=== PATIENT | female | born 1940 | race Caucasian/White ===

== ENCOUNTER → 2022-04-13 | Outpatient (CLI) | payer MEDICARE, SELFPAY ==
--- NOTE | 2022-04-13 10:19 | BI_ITS ---
MAMMOGRAPHY - BILATERAL SCREENING REASON FOR EXAM: Female, 81 years old. Routine annual screening examination. PERTINENT HISTORY: Non-contributory. TECHNIQUE: Digital bilateral breast bianca (3D mammographic acquisition) in the CC and MLO projections. 2-D mediolateral oblique (MLO) and craniocaudad (CC) views of both breasts were obtained. CAD: Full Field Digital Mammography with Computer Added Detection was performed. COMPARISON: None. Baseline examination. FINDINGS: Breast Composition: There are scattered areas of fibroglandular density. There are no dominant masses or suspicious calcifications. Small benign-appearing bilateral axillary lymph. No other significant abnormalities are identified. BI/SCRN MAMM (CAD)W/BIANCA BILAT IMPRESSION: Negative screening mammogram. Yearly followup mammogram recommended. (A) ASSESSMENT CATEGORY: BIRADS Category 2: Benign. A letter regarding these results will be sent to the patient by the facility within 30 days. Approximately 10% of breast cancers are not detected by mammography. A normal mammogram should not delay biopsy of a clinically suspicious abnormality. [id number] Electronically Signed: Ayan Jimenez MD at 13:27 EST ,
--- NOTE | 2022-04-13 10:21 | BD_ITS ---
STUDY: DUAL ENERGY X-RAY ABSORPTIOMETRY / DXA REASON FOR EXAM: Female, 81 years old. [id number] TECHNIQUE: Bone Mineral Density (BMD) measurements of lumbar spine and bilateral hips were obtained. COMPARISON: None. FINDINGS: Lumbar Spine (L1-L4): g/cm2 (0.837) / T-score (-2.2) / Z-score (0.7) Findings are suggestive of osteopenia with a high fracture risk. Left Femur Total: g/cm2 (0.802) / T-score (-1.1) / Z-score (1.1) Left Femoral Neck: g/cm2 (0.671) / T-score (-1.6) / Z-score (0.8) Right Femur Total: g/cm2 (0.734) / T-score (-1.7) / Z-score (0.5) Right Femoral Neck: g/cm2 (0.648) / T-score (-1.8) / Z-score (0.6) BD/Dexa Bone Density Study IMPRESSION: The patient is considered osteopenic as outlined below according to World Bishop Organization (WHO) criteria with a high fracture risk. Reference Information: The T-score is the number of standard deviations above or below the standard which is normal for young adults at their peak bone mineral density. The World Health Organization (WHO) interprets the T-scores as follows: Above -1 Normal bone density Between -1 and -2.5 Osteopenia Equal to / or below -2.5 Osteoporosis As a practical clinical guideline, osteopenia may be graded as follows: Mild -1 through -1.5 Moderate -1.6 through -2.0 Severe -2.1 through -2.4 The Z-score is the number of standard deviations above or below age-matched controls. A Z-score of less than -1.5 would be considered abnormal. References: 1. NIH Osteoporosis and Related Bone Diseases www osteo.org 2. International Society for Clinical Densitometry www iscd.org 3. National Osteoporosis Foundation www nof.org Electronically Signed: Ayan Jimenez MD at 12:42 EST ,
== END | disposition home or self-care (01) ==
LOC: OPBD 10:16
PROVIDERS: PCP Internal Medicine; Visit Provider Internal Medicine
DX: Z13.820 Encounter for screening for osteoporosis (principal); Z78.0 Asymptomatic menopausal state; Z12.31 Encounter for screening mammogram for malignant neoplasm of breast
CPT/HCPCS: 77063; 77067; 77080

== ENCOUNTER → 2023-04-23 | Outpatient (CLI) | payer MEDICARE, SELFPAY ==
--- NOTE | 2023-04-23 08:05 | BI_ITS ---
MAMMOGRAPHY - BILATERAL SCREENING REASON FOR EXAM: Female, 82 years old. Routine annual screening examination. PERTINENT HISTORY: Non-contributory. TECHNIQUE: Digital bilateral breast bianca (3D mammographic acquisition) in the CC and MLO projections. 2-D mediolateral oblique (MLO) and craniocaudad (CC) views of both breasts were obtained. CAD: Full Field Digital Mammography with Computer Added Detection was performed. COMPARISON: Comparison is made with prior study dated April 13, 2022. FINDINGS: Breast Composition: There are scattered areas of fibroglandular density. There are no dominant masses or suspicious calcifications. Stable small benign-appearing bilateral axillary lymph nodes. No other significant abnormalities are identified. There has been no significant change since the prior study. BI/SCRN MAMM (CAD)W/BIANCA BILAT IMPRESSION: Stable bilateral screening mammogram. Yearly follow-up mammogram recommended. (A) ASSESSMENT CATEGORY: BIRADS Category 2: Benign. A letter regarding these results will be sent to the patient by the facility within 30 days. Approximately 10% of breast cancers are not detected by mammography. A normal mammogram should not delay biopsy of a clinically suspicious abnormality. [id number] Electronically Signed: Ayan Jimenez MD at 8:56 EST ,
== END | disposition home or self-care (01) ==
LOC: OPBI 08:05
PROVIDERS: PCP Internal Medicine; Referring Provider Internal Medicine; Visit Provider Internal Medicine
DX: Z12.31 Encounter for screening mammogram for malignant neoplasm of breast (principal)
CPT/HCPCS: 77063; 77067

== ENCOUNTER 2023-10-22 16:14 | Inpatient (IN) | payer MEDICARE, SELFPAY ==
[2023-10-22 16:16] VITALS: BP 180/97; PULSE 104; RESP 20; TEMP 37.2; O2SAT 92
--- NOTE | 2023-10-22 16:19 | EKG12_ITS ---
Test Reason : GENERAL Blood Pressure : / mmHG Vent. Rate : 096 BPM Atrial Rate : 096 BPM P-R Int : 154 ms QRS Dur : 080 ms QT Int : 338 ms P-R-T Axes : 029 -14 031 degrees QTc Int : 427 ms Normal sinus rhythm Inferior infarct , age undetermined Abnormal ECG Confirmed by MALKA AREVALO, YULIA ([id number]), film and video editor KENDALL COFFEY ([id number]) on 10/26/2023 9:58:36 AM Referred By: Confirmed By:SARANYA ACE MD
--- NOTE | 2023-10-22 16:22 | ED.VIS.LOWEX ---
HPI History of Present Illness Chief Complaint: Lower Extremity Injury Narrative Narrative: 82-year-old female presenting after mechanical fall. She states she lost her footing and fell injuring her left hip. He is unable to ambulate secondary to pain. Patient was given 50 mcg of fentanyl and Zofran in the route via EMS. Patient denies hitting her head or loss of consciousness. She states he was in her usual health prior to the fall. [facility] Medical History Contact with and (suspected) exposure to other viral communicable diseases Home Medications ?Medication ?Instructions ?Recorded ?Last Taken ?Type amlodipine 5 mg tablet 5 mg PO DAILY BLOOD PRESSURE 06/29/22 Unknown History benazepril 10 mg tablet 10 mg PO DAILY BLOOD PRESSURE 06/29/22 Unknown History cholecalciferol (vitamin D3) 50 50 mcg PO DAILY SUPPLEMENT 06/29/22 Unknown History mcg (2,000 unit) capsule cyanocobalamin (vitamin B-12) 2,500 mcg PO DAILY SUPPLEMENT 06/29/22 Unknown History 2,500 mcg tablet ezetimibe 10 mg tablet 10 mg PO DAILY CHOLESTEROL 06/29/22 Unknown History meclizine 25 mg tablet 25 mg PO Q8H PRN DIZZINESS 06/29/22 Unknown History Allergy/AdvReac Type Severity Reaction Status Date / Time No Known Allergies Allergy Verified 10/22/23 16:16 Social History Smoking Status: Never smoker alcohol intake: never ROS ROS ED Constitutional Constitutional ED: Denies chills, fever(s) or sweats Eyes Eyes: Denies blurry vision or change in vision ENT ENT ED: Denies ear pain or sore throat Cardiovascular Cardiovascular: Denies chest pain, palpitations or racing heartbeat Respiratory/Chest Respiratory/Chest: Denies cough, dyspnea or sputum Gastrointestinal Gastrointestinal: Denies abdominal pain, constipation, diarrhea, nausea or vomiting Genitourinary Genitourinary ED: Denies dysuria, hematuria or urinary frequency Musculoskeletal Musculoskeletal: Reports other Details: Left hip pain ; Denies arthralgias, myalgias or neck pain Integumentary Denies abscess, Abrasions or rash Neurologic Neurologic: Denies headache(s), paresthesias or weakness Psychiatric Psychiatric: Denies anxiety, depression, suicidal ideation or suicidal thoughts Endocrine Endocrinology: Denies polydipsia or polyuria EXAM Physical Exam Const Vital Signs: 10/22/23 16:16 Temperature 99 F Temperature Source Temporal Pulse Rate 104 H Respiratory Rate 20 H Blood Pressure 180/97 H Blood Pressure Mean 124 Pulse Ox 92 Oxygen Delivery Method Room Air Positive well nourished General Appearance ED: NAD HEENT Reports moist mucous membranes normocephalic and atraumatic Chest Wall inspection of chest normal Resp normal respiratory effort, no retractions and clear to auscultation bilaterally Auscultation: Negative for rales, rhonchi or wheezes Cardio regular rate and regular rhythm GI non-tender Extremity Extremity Narrative: Positive logroll of the left hip. Leg is not shortened. Unable to flex and extend the leg secondary to pain. Neuro oriented x3 and CN's II-XII intact bilaterally Sensorium / Orientation: alert Motor Exam: strength 5/5 throughout Psych mental status grossly normal MDM MDM MDM Narrative Medical decision making narrative: Patient presenting after mechanical fall. She injured her left hip. Differential includes hip fracture, femur fracture, hip hip contusion. X-ray of the left hip and femur will be obtained. IV line was established. CBC to assess white blood cell count, hemoglobin and platelets. BMP to assess renal function, protein glucose. CBC shows normal white blood, 6. Hemoglobin 14.6. Platelets are normal at 248. Creatinine slightly elevated 1.07 without known baseline. Glucose 153 without anion gap. Chest x-ray interpreted by myself shows no acute cardiopulmonary process. Radiologist services and agrees. EKG was obtained and my interpretation is a normal sinus rhythm with a ventricular rate of 96 bpm without signs change. Of the pelvis which shows acute left femoral neck fracture. Patient counseled on findings. Discussed with Dr. Garcia who will operate tomorrow. Admitted to the hospitalist. Impression: 1. Mechanical fall 2. Left hip fracture Lab Data Attestation: I reviewed the patient's lab results. Labs: Laboratory Results - last 24 hr 10/22/23 16:40 WBC 10.6 RBC 4.91 Hgb 14.6 Hct 44.0 MCV 89.6 MCH 29.7 MCHC 33.2 RDW Std Deviation 40.0 RDW Coeff of Ralette 12.2 Plt Count 248 MPV 9.0 Immature Gran % (Auto) 0.900 Neut % (Auto) 75.6 H Lymph % (Auto) 16.0 L [place] % (Auto) 5.8 Eos % (Auto) 1.2 Baso % (Auto) 0.5 Absolute Neuts (auto) 8.0 H Absolute Lymphs (auto) 1.70 Nucleated RBC % 0 Sodium 139 Potassium 3.5 Chloride 107 Carbon Dioxide 29.0 Anion Gap 3 L BUN 16 Creatinine 1.07 H Est GFR (MDRD) Af Amer 63 Est GFR (MDRD) Non-Af 52 L BUN/Creatinine Ratio 15.0 Glucose 153 H Calcium 9.6 Radiography Diagnostic Testing: Clinical Impression(s) from Imaging Studies Chest X-Ray 10/22/23 16:30 IMPRESSION: No acute cardiopulmonary abnormality. No interval change. Electronically Signed: Raul Méndez MD at 16:56 EDT , Femur X-Ray 10/22/23 16:30 IMPRESSION: Acute left femoral neck fracture. Electronically Signed: Raul Méndez MD at 16:54 EDT , Pelvis X-Ray 10/22/23 16:30 IMPRESSION: Left femoral neck fracture. Electronically Signed: Raul Méndez MD at 16:55 EDT , Discharge Plan Triage Chief Complaint: Lower Extremity Injury Other Complaint: Fall ED Provider: Elgin Domingo Dx/Rx/DC Orders Prescriptions: No Action meclizine 25 mg tablet 25 mg PO Q8H PRN (Reason: DIZZINESS ) amlodipine 5 mg tablet 5 mg PO DAILY benazepril 10 mg tablet 10 mg PO DAILY ezetimibe 10 mg tablet 10 mg PO DAILY cholecalciferol (vitamin D3) 50 mcg (2,000 unit) capsule 50 mcg PO DAILY cyanocobalamin (vitamin B-12) 2,500 mcg tablet 2,500 mcg PO DAILY Primary Care Provider: Aneta Alcantara Referrals: Aneta Alcantara DO [Primary Care Provider] - Print Language: Citizen Of [place]
--- NOTE | 2023-10-22 16:30 | RAD_ITS ---
EXAM: XR CHEST, 1 VIEW CLINICAL INDICATION: preop TECHNIQUE: Frontal view of the chest. COMPARISON: XR Chest dated 04/15/2006 FINDINGS: LUNGS AND PLEURAL SPACES: Normal. No consolidation or edema. No pneumothorax. No effusion. HEART: Normal heart size. MEDIASTINUM: No mediastinal or hilar mass. BONES/JOINTS: No acute abnormality. RAD/Chest 1 View (Portable) IMPRESSION: No acute cardiopulmonary abnormality. No interval change. Electronically Signed: Raul Méndez MD at 16:56 EDT ,
--- NOTE | 2023-10-22 16:30 | RAD_ITS ---
EXAM: XR PELVIS, 1 OR 2 VIEWS CLINICAL INDICATION: left hip pain TECHNIQUE: Frontal view of the pelvis. COMPARISON: No relevant prior studies available. FINDINGS: BONES/JOINTS: There appears to be a fracture involving the base of the left femoral neck not well seen on this single view of the pelvis. Mild narrowing of the left hip joint space. Sclerotic changes of the symphysis pubis consistent with benign osteitis. SOFT TISSUES: Normal. No soft tissue swelling or gas. RAD/Pelvis 1 or 2 Views IMPRESSION: Left femoral neck fracture. Electronically Signed: Raul Méndez MD at 16:55 EDT ,
--- NOTE | 2023-10-22 16:30 | RAD_ITS ---
EXAM: XR LEFT FEMUR, 2 VIEWS CLINICAL INDICATION: fall TECHNIQUE: Frontal and lateral views of the left femur. COMPARISON: No relevant prior studies available. FINDINGS: BONES/JOINTS: Acute fracture involves the base of the left femoral neck. Femoral shaft appears rotated externally. Femoral shaft is intact. No subluxation. SOFT TISSUES: Normal. No soft tissue swelling or gas. No radiopaque foreign body. RAD/Femur Min 2 Views IMPRESSION: Acute left femoral neck fracture. Electronically Signed: Raul Méndez MD at 16:54 EDT ,
[2023-10-22 16:54] LABS: Basophil# 0.05 X10^3/uL; Basophil% 0.5 % (0-1); Eosinophil# 0.13 X10^3/uL; Eosinophils% 1.2 % (0-5); Hemoglobin 14.6 g/dL (12.0-15.0); Mean Corp Hgb Conc 33.2 g/dL (32-36); Mean Corpuscular Hgb 29.7 pg (27.0-32.0); Mean Corpuscular Volume 89.6 fL (81-99); Monocyte# 0.61 X10^3/uL; Monocyte% 5.8 % (0-10); NRBC Flagged by Analyzer 0 % (0-5); Neutrophil # 8.01 X10^3/uL (2.7-7.7); Neutrophil % 75.6 % (47-70); Platelet Count 248 K/mm3 (150-450); RBC Distribution Width CV 12.2 % (11.6-14.6); Red Blood Count 4.91 M/mm3 (4.2-5.4); White Blood Count 10.6 K/mm3 (4.4-11.0)
[2023-10-22 17:00] LABS: Anion Gap 3 (5-15); BUN 16 mg/dL (7-18); Calcium,Total 9.6 mg/dL (8.5-10.1); Chloride 107 mmol/L (98-107); Creatinine, Serum 1.07 mg/dL (0.55-1.02); EST Glomerular Filtration Rate 52 mL/min (>60); Est Glom Filt Rate - Afr Amer 63 mL/min (>60); Glucose 153 mg/dL (74-106); Potassium 3.5 mmol/L (3.5-5.1); Sodium Level 139 mmol/L (136-145)
--- NOTE | 2023-10-22 17:26 | HP.PCM.HOS_ITS ---
HPI - General General Date of Admission: 10/22/23 Date of Service: 10/22/23 Chief Complaint: Left hip pain HPI Narrative LENA SAEZ, is a 82-year-old female history of hypertension who presented to [facility] ED 10/22/2023 after mechanical fall in which she lost her footing and fell onto her left hip. Patient found to have left femoral neck fracture, Ortho contacted and advised hospital admission and they will see her in consultation. Hospitalist contacted for admission. Patient evaluated at bedside she reports presently being in pain but otherwise no acute complaints. She walked about 4 miles this morning which is her baseline and then later in the day was walking and just fell, denies that there is any weakness but does not think she tripped over anything, no lightheadedness or loss of consciousness, she is unsure how she fell. Denies any other recent problems or complaints. [facility] Medical History Contact with and (suspected) exposure to other viral communicable diseases Home Medications ?Medication ?Instructions ?Recorded ?Last Taken ?Type amlodipine 5 mg tablet 5 mg PO DAILY BLOOD PRESSURE 06/29/22 10/21/23 History benazepril 10 mg tablet 10 mg PO DAILY BLOOD PRESSURE 06/29/22 10/21/23 History cholecalciferol (vitamin D3) 50 50 mcg PO DAILY SUPPLEMENT 06/29/22 10/21/23 History mcg (2,000 unit) capsule cyanocobalamin (vitamin B-12) 2,500 mcg PO DAILY SUPPLEMENT 06/29/22 10/21/23 History 2,500 mcg tablet ezetimibe 10 mg tablet 10 mg PO DAILY CHOLESTEROL 06/29/22 10/21/23 History meclizine 25 mg tablet 25 mg PO Q8H PRN DIZZINESS 06/29/22 Unknown History Allergy/AdvReac Type Severity Reaction Status Date / Time No Known Allergies Allergy Verified 10/22/23 16:16 Social History Smoking Status: Never smoker alcohol intake: never ROS ROS Narrative General: Denies fever/chills HENT: Denies headache, denies stuffy nose, denies sore throat EYES: Denies changes in vision Resp: Denies cough, denies shortness of breath Cardiac: Denies chest pain GI: Denies abdominal pain, denies changes in bowel, denies nausea/vomiting : Denies changes in urination Extremity: Denies swelling MSK: Denies weakness, left hip pain Neuro: Denies any numbness/tingling Heme: Denies any bleeding or bruising Skin: Denies rashes Psychiatric: No complaints voiced Vital Signs Vital Signs Vital Signs: 10/22/23 16:16 Temperature 99 F Temperature Source Temporal Pulse Rate 104 H Respiratory Rate 20 H Blood Pressure 180/97 H Blood Pressure Mean 124 Pulse Ox 92 Oxygen Delivery Method Room Air Physical Exam Narrative General: Alert, oriented, no apparent distress HEENT: Atraumatic, normocephalic Eyes: Anicteric, normal conjunctiva, extraocular movements grossly intact Neck: Supple Respiratory: Clear to auscultation bilaterally, normal respiratory effort Cardiovascular: Regular rate and rhythm GI: Soft, nontender, nondistended Extremities: No edema Musculoskeletal: Keeping left leg still otherwise moving all extremities Neuro: No overt focal neurological deficits Skin: No rashes appreciated Psych: Cooperative Results Lab / Micro Data 10/22/23 16:40 10/22/23 16:40 Labs: Laboratory Results - last 24 hr 10/22/23 16:40: WBC 10.6, RBC 4.91, Hgb 14.6, Hct 44.0, MCV 89.6, MCH 29.7, MCHC 33.2, RDW Std Deviation 40.0, RDW Coeff of Arlette 12.2, Plt Count 248, MPV 9.0, Immature Gran % (Auto) 0.900, Neut % (Auto) 75.6 H, Lymph % (Auto) 16.0 L, [place] % (Auto) 5.8, Eos % (Auto) 1.2, Baso % (Auto) 0.5, Absolute Neuts (auto) 8.0 H, Absolute Lymphs (auto) 1.70, Nucleated RBC % 0, Sodium 139, Potassium 3.5, Chloride 107, Carbon Dioxide 29.0, Anion Gap 3 L, BUN 16, Creatinine 1.07 H, Est GFR (MDRD) Af Amer 63, Est GFR (MDRD) Non-Af 52 L, BUN/Creatinine Ratio 15.0, G lucose 153 H, Calcium 9.6 Imaging Radiology Impression Chest X-Ray 07/29/24 16:30 IMPRESSION: No acute cardiopulmonary abnormality. No interval change. Electronically Signed: Raul Méndez MD at 16:56 EDT , Femur X-Ray 10/22/23 16:30 IMPRESSION: Acute left femoral neck fracture. Electronically Signed: Raul Méndez MD at 16:54 EDT , Pelvis X-Ray 10/22/23 16:30 IMPRESSION: Left femoral neck fracture. Electronically Signed: Raul Méndez MD at 16:55 EDT , Assessment & Plan Assessment/Plan (1) Closed left hip fracture: (2) HTN (hypertension): PLAN: Plan #Left femoral neck fracture -Seen on hip xray -admit to med surg -ortho c/s -NPO at midnight -Pain control -PT/OT #SUSAN vs CKD -Cr 1.07 w/ no baseline -Avoid nephrotoxic agents -Repeat in AM #HTN -Significantly hypertensive at 180/97 -Possibly partially d/t pain -Continue amlodipine, given unclear if patient has SUSAN holding benazepril but can add back if creatinine stable and patient remains hypertensive despite pain being treated -Hydralazine prn -Pain control #DVT ppx: SCDs Danette Edmonds MD Charges/Coding Visit Charges Inpatient E&M: 80181 Init Hosp L1
[2023-10-22 17:29] VITALS: BP 150/93; PULSE 101; RESP 18; TEMP 36.6; O2SAT 96
[2023-10-22 18:38] VITALS: BP 168/91; PULSE 98; RESP 18; TEMP 36.6; O2SAT 93
[2023-10-22] MEDS: Morphine 2 MG/ML Syringe IV (18:57)
[2023-10-22] MEDS: Acetaminophen 500 MG Tablet 1000 MG PO (18:57)
[2023-10-22] MEDS: Ondansetron 4 MG/2 ML Vial IV (18:57)
[2023-10-22] MEDS: 0.9% Saline Lock 10 ML Syringe IV (18:58)
[2023-10-22 20:22] VITALS: BP 158/76; PULSE 92; RESP 18; TEMP 37.3; O2SAT 95
[2023-10-22 20:32] VITALS: BMI 27.0
[2023-10-22] MEDS: MELATONIN 3 MG TABLET PO (21:53)
[2023-10-22] MEDS: oxyCODONE 5 MG Tablet PO (21:53)
[2023-10-22] MEDS: amLODIPine 5 MG Tablet PO (21:54)
[2023-10-22] MEDS: Ezetimibe 10 MG Tablet PO (21:54)
[2023-10-22 23:50] VITALS: O2SAT 86
[2023-10-22 23:53] VITALS: BP 151/83; PULSE 79; RESP 18; TEMP 36.9; O2SAT 92
[2023-10-23] VITALS (16 sets, daily range): BP systolic 113–165; BP diastolic 44–92; PULSE 78–92; RESP 16–18; TEMP 36.3–37; O2SAT 84–96
[2023-10-23 06:43] LABS: Absolute Lymphocyte Count 1.37 X10^3/uL (0.83-4.51); Absolute Neutrophil Count 10.4 X10^3/uL (2.0-7.7); Basophil# 0.05 X10^3/uL; Basophil% 0.4 % (0-1); Eosinophils% 1.6 % (0-5); Hematocrit 43.2 % (37-47); Hemoglobin 14.4 g/dL (12.0-15.0); Lymphocyte # 1.37 X10^3/ul (0.83-4.51); Lymphocyte % 10.8 % (19-41); Mean Corp Hgb Conc 33.3 g/dL (32-36); Mean Corpuscular Hgb 29.3 pg (27.0-32.0); Mean Corpuscular Volume 87.8 fL (81-99); Mean Platelet Vol. 8.9 fl (6.2-12.0); Monocyte# 0.65 X10^3/uL; Monocyte% 5.1 % (0-10); NRBC Flagged by Analyzer 0 % (0-5); Neutrophil # 10.35 X10^3/uL (2.7-7.7); Neutrophil % 81.7 % (47-70); Platelet Count 230 K/mm3 (150-450); RBC Distribution Width CV 12.2 % (11.6-14.6); RBC Distribution Width SD 39.3 fl (35.1-43.9); Red Blood Count 4.92 M/mm3 (4.2-5.4); White Blood Count 12.7 K/mm3 (4.4-11.0)
[2023-10-23] MEDS: oxyCODONE 5 MG Tablet PO (06:45)
[2023-10-23] MEDS: Acetaminophen 500 MG Tablet 1000 MG PO ×2 (06:46→20:58)
[2023-10-23] MEDS: 0.9% Saline Lock 10 ML Syringe IV ×4 (06:46→20:53)
[2023-10-23 07:40] LABS: Anion Gap 6 (5-15); BUN 13 mg/dL (7-18); BUN/Creat Ratio 13.5 RATIO (10-20); Calcium,Total 9.5 mg/dL (8.5-10.1); Chloride 103 mmol/L (98-107); Creatinine, Serum 0.96 mg/dL (0.55-1.02); EST Glomerular Filtration Rate 59 mL/min (>60); Est Glom Filt Rate - Afr Amer 71 mL/min (>60); Estimated Creatinine Clearance 40.74 ml/min; Glucose 130 mg/dL (74-106); Potassium 3.8 mmol/L (3.5-5.1); Sodium Level 136 mmol/L (136-145)
--- NOTE | 2023-10-23 09:52 | CASEMGMT ---
JOSIANE CARCAMO Assessment: Face to Face with pt for initial transition planning/care coordination assessment. JOSIANE CARCAMO introduced self and role at [facility], pt voices understanding and consents to assessment. Pt is A&O x4 and answers all questions appropriately at this time. Pt lying in bed in no distress. Pt niece came in room during assessment, pt agreeable to continue with visitor present. Care providers, pharmacy, and demographics verified/updated. Admitting Dx: L femoral neck fx Strata Score: 1 PCP:[place] Specialists:Denies Preferred Pharmacy:[facility] Insurance: [facility] Prescription Benefit: yes LNOK: Roosevelt Bonner, sister in law; Vianney Self, niece Living Arrangements: Pt lives in a single story home with 3 steps to enter with a rail. Pt reports she is I in ADL/IADLs and denies concerns at home. Transportation: Pt drives self and denies concerns with transportation. DME:[facility] HHC/SNF:Pt denies hx Pt states no concerns with going home at time of dc. Pt states she walks 4 miles per day. Pt aware that therapy will evaluate her after surgery and RN DONA will follow up with recommendations. Pt verbalizes understanding. Pt states no further concerns/needs. CM to follow. Advised pt to ask CM if any further question/concerns/needs arise, voices understanding. Pt Goal: Home Plan: TBD pending surgery and therapy evals as well as course of hospitalization. Corrie JOSHUA CM
[2023-10-23] MEDS: Morphine 2 MG/ML Syringe IV (10:20)
--- NOTE | 2023-10-23 10:21 | PN_ITS ---
Subjective Subjective Patient seen and examined. She complained of severe pain in her left hip and says the pain in the hip is ~ 9/10. She sustained the left hip fracture after a mechanical fall. Review of systems is otherwise negative. She is due for surgery today. Objective Data Objective Data Vital Signs: Vital Signs Temp Pulse Resp BP Pulse Ox O2 Del Method O2 Flow Rate 97.9 F 86 16 152/84 H 93 Nasal Cannula 2 10/23/23 09:44 10/23/23 09:44 10/23/23 09:44 10/23/23 09:44 10/23/23 09:44 10/23/23 09:44 10/23/23 09:44 Oxygen Flow Rate (L/min) 2 Oxygen Delivery Method Nasal Cannula Weight: 152 lb 12.485 oz Body Mass Index (BMI) 27.0 Intake & Output: Intake and Output for Last 24 Hours 10/21/23 10/22/23 10/23/23 23:59 23:59 23:59 Intake Total 0 / 0 Output Total 700 / 700 350 / 350 Balance -700 / -700 -350 / -350 Lab / Micro Data 10/23/23 06:19 10/23/23 06:19 Labs: Laboratory Results - last 24 hr 10/22/23 16:40: WBC 10.6, RBC 4.91, Hgb 14.6, Hct 44.0, MCV 89.6, MCH 29.7, MCHC 33.2, RDW Std Deviation 40.0, RDW Coeff of Arlette 12.2, Plt Count 248, MPV 9.0, Immature Gran % (Auto) 0.900, Neut % (Auto) 75.6 H, Lymph % (Auto) 16.0 L, [place] % (Auto) 5.8, Eos % (Auto) 1.2, Baso % (Auto) 0.5, Absolute Neuts (auto) 8.0 H, Absolute Lymphs (auto) 1.70, Nucleated RBC % 0, Sodium 139, Potassium 3.5, Chloride 107, Carbon Dioxide 29.0, Anion Gap 3 L, BUN 16, Creatinine 1.07 H, Est GFR (MDRD) Af Amer 63, Est GFR (MDRD) Non-Af 52 L, BUN/Creatinine Ratio 15.0, G lucose 153 H, Calcium 9.6 10/23/23 06:19: WBC 12.7 H, RBC 4.92, Hgb 14.4, Hct 43.2, MCV 87.8, MCH 29.3, MCHC 33.3, RDW Std Deviation 39.3, RDW Coeff of Arlette 12.2, Plt Count 230, MPV 8.9, Immature Gran % (Auto) 0.400, Neut % (Auto) 81.7 H, Lymph % (Auto) 10.8 L, [place] % (Auto) 5.1, Eos % (Auto) 1.6, Baso % (Auto) 0.4, Absolute Neuts (auto) 10.4 H, Absolute Lymphs (auto) 1.37, Nucleated RBC % 0, Sodium 136, Potassium 3.8, Chloride 103, Carbon Dioxide 27.0, Anion Gap 6, BUN 13, Creatinine 0.96, Estim Creat Clear Calc 40.74, Est GFR (MDRD) Af Amer 71, Est GFR (MDRD) Non-Af 59 L, BUN/Creatinine Ratio 13.5, Glucose 130 H, Calcium 9.5, Blood Type A POSITIVE, Antibody Screen NEGATIVE Radiography Diagnostic Testing: Radiology Impression Chest X-Ray 10/22/23 16:30 IMPRESSION: No acute cardiopulmonary abnormality. No interval change. Electronically Signed: Raul Méndez MD at 16:56 EDT , Femur X-Ray 10/22/23 16:30 IMPRESSION: Acute left femoral neck fracture. Electronically Signed: Raul Méndez MD at 16:54 EDT Reading Location ID and State: [facility] / [place] Tel , Service support , Pelvis X-Ray 10/22/23 16:30 IMPRESSION: Left femoral neck fracture. Electronically Signed: Raul Méndez MD at 16:55 EDT , Physical Exam Const alert, oriented x3 and no apparent distress General Appearance: cooperative HEENT normocephalic, head/scalp atraumatic, moist oral mucous membranes and oropharynx normal Eyes PERRL and EOMs intact bilaterally Neck no lymphadenopathy, supple and no JVD Lymph Lymphatic: no lymphedema noted and lymphedema Resp Resp Narrative: mildly diminished breath sounds bibasally, no wheezes or crackles. On room 2L of oxygen. Cardio regular rate, regular rhythm, S1 normal heart sound, S2 normal heart sound and no murmurs GI normal to inspection, nondistended, normoactive bowel sounds, soft to palpation, non-tender and non-distended Extremity Extremity Narrative: left lower extremity shortened and externally rotated. General Extremity: no tenderness to palpation of joints or extremities Skin General Skin Exam: no breakdown Neuro CN's II-XII intact bilaterally, no focal motor deficits, no sensory deficits noted and deep tendon reflexes 2+ bilaterally Motor Exam: strength 5/5 throughout and general weakness Psych thought process normal and cooperative Appearance: appropriate Assessment & Plan Assessment/Plan (1) Closed left hip fracture: PLAN: Plan #Left femoral neck fracture due to mechanical fall * still complains of left hip fracture * sustained a mechanical fall whist wallking. * imaging showed a left femoral neck fracture * orthopedic surgery on board * on PO tylenol, oxycodone and IV morphine prn for pain * for surgery today * fall precautions * PT/OT on board. Fall precautions. * #Elevated Cr: Cr was 1.07 on admission. No known baseline Cr. Hydrated with IVF. Will monitor #Hypertension * BP was elevated on admission * on PO amlodipine and benazepril. Resume benazepril which was held on admission due to elevated Cr. * IV hydralazine prn. * DVT prophylaxis: SCDs, lovenox Charges/Coding Visit Charges Inpatient E&M: 03595 Subs Hosp L2
--- NOTE | 2023-10-23 11:18 | NURSING ---
pt off floor for surgery
[2023-10-23] MEDS: Lactated Ringers 1,000 ML 15 ML IV (11:45)
--- NOTE | 2023-10-23 11:45 | PCM.PRE.AN2 ---
ASA Classification* ASA Classification ASA Classification: 2 Assessment & Plan Anesthesia* Anesthesia Assessment Anesthesia Assessment: Discussed sedation and/or anesthesia options, risks, benefits, and alternatives with patient/parents/legal guardian/POA. Questions invited. The patient/parents/legal guardian/POA seems to understand and agrees to proceed with anesthesia plan. Reviewed the physical assessment, medical history, allergy history and patient home medications list prior to surgery/procedure/anesthetic and documented any changes. Performed airway and anesthesia risk assessments. Anesthesia Type Anesthesia Type: General History Source History Obtained from:: Patient and Chart Anesthesia Focused Assessment* Temperature: 97.9 F Pulse Rate: 86 Blood Pressure: 152/84 Respiratory Rate: 16 Pulse Ox: 93 Oxygen Delivery Method: Nasal Cannula (Nasal cannula 2 L/min) Airway Assessment Mouth opens: 2 cm Mallampati Score: IV Teeth Condition: Dentures (Full upper dentures are out. Lower partial is out.) Neck Range of motion (ROM): Limited ROM (Decreased extension.) Focused Labs Anesthesia Preop lab: CBC WBC 12.7 K/mm3 (4.4-11.0) H 10/23/23 06:19 RBC 4.92 M/mm3 (4.2-5.4) 10/23/23 06:19 Hgb 14.4 g/dL (12.0-15.0) 10/23/23 06:19 Hct 43.2 % (37-47) 10/23/23 06:19 Plt Count 230 K/mm3 (150-450) 10/23/23 06:19 CHEMISTRY Potassium 3.8 mmol/L (3.5-5.1) 10/23/23 06:19 Sodium 136 mmol/L (136-145) 10/23/23 06:19 BUN 13 mg/dL (7-18) 10/23/23 06:19 Creatinine 0.96 mg/dL (0.55-1.02) 10/23/23 06:19 Glucose 130 mg/dL (74-106) H 10/23/23 06:19 COAG Pre-Assessment Diagnosis/Proposed Procedure Planned Operative Procedure(s): Left total hip arthroplasty anterior approach. 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 When Was Last Pacemaker Check QUESTION #4 FULL TEXT: You/Your Family Experience fever (hyperthermia) with Anesthesia Last Oral Intake Last Oral intake: Last Oral Intake NPO since Meds taken in AM with sips of water? Meds patient instructed to take am of surgery Any additional information?: Yes NPO since: 00:00 PONV PONV - watch crystal molder: PONV - watch crystal molder Female HX of Motion Sickness HX of N/V After Surgery Non-Smoker Duration of Surgery greater than 60 minutes Number of Risk Factors PONV Score Height & Weight Height & Weight: Anesthesia: Height & Weight Height 5 ft 3 in 10/22/23 20:32 Weight: 69.3 kg 10/22/23 20:32 Body Mass Index (BMI) 27.0 10/22/23 20:32 Respiratory Assessment Respiratory Assessment - watch crystal molder: Respiratory Tract Infection Hx - watch crystal molder Hx Respiratory Tract Infection No 10/22/23 20:16 STOP Sleep Apnea STOP Sleep Apnea - watch crystal molder: STOP Sleep Apnea - watch crystal molder Hx Hypertension Yes 10/22/23 18:30 Hx Sleep Apnea No 10/22/23 18:30 CPAP BIPAP Do you snore loudly (louder No 10/22/23 18:30 than talking or can be heard Do you often feel tired/ No 10/22/23 18:30 fatigued/ sleepy during daytime? Has anyone observed you stop No 10/22/23 18:30 breathing during sleep? STOP Results Negative 10/22/23 18:30 QUESTION #5 FULL TEXT : Do you snore loudly (louder than talking or can be heard through closed doors)? 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 Specify any problems Hx of Preganancy in last 3 N/A 10/22/23 18:30 Months Nurse Filling Out Transfusion [email or web address] 10/22/23 18:30 & Questions: Date: 10/22/23 10/22/23 18:30 Time: 20:30 10/22/23 18:30 Patient unable to answer at this time (ie. confused, unrespo /Reproduction History /Reproductive History - watch crystal molder: /Reproductive Hx- watch crystal molder Hx Now No 10/22/23 20:16 Gestational Age (in weeks): EDC: Hx Hx Para Hx Section SAB No 10/22/23 20:16 Active Medications Active Medications: Current Medications Generic Name Dose Route Start Last Admin Trade Name Freq PRN Reason Stop Dose Admin Acetaminophen 1,000 mg 10/22/23 18:06 10/23/23 06:46 Acetaminophen 500 Mg Tablet PO 1,000 mg Q8 FABIO Administration Albuterol Sulfate 2.5 mg 10/22/23 18:06 Albuterol 2.5 Mg/3 Ml Vial.Neb. INHALATION Q2H PRN PRN SOB &/OR WHEEZING Amlodipine Besylate 5 mg 10/22/23 22:00 10/22/23 21:54 Amlodipine 5 Mg Tablet PO 5 mg QHS FABIO Administration Protocol Ezetimibe 10 mg 10/22/23 22:00 10/22/23 21:54 Ezetimibe 10 Mg Tablet PO 10 mg QHS FABIO Administration Hydralazine HCl 5 mg 10/22/23 18:06 Hydralazine 20 Mg/Ml Vial IV Q6H PRN PRN sbp >175 Protocol Lactated Ringer's 1,000 mls @ 15 mls/hr 10/23/23 11:45 IV .Q48H FABIO Melatonin 3 mg 10/22/23 18:06 10/22/23 21:53 Melatonin 3 Mg Tablet PO 3 mg QHS PRN PRN Administration INSOMNIA Morphine Sulfate 2 mg 10/22/23 18:06 10/23/23 10:20 Morphine 2 Mg/Ml Syringe IV 2 mg Q3H PRN PRN Administration Pain Score 6-10 Ondansetron HCl 4 mg 10/22/23 18:06 10/22/23 18:57 Ondansetron 4 Mg/2 Ml Vial IV 4 mg Q8H PRN PRN Administration NAUSEA/VOMITING Oxycodone HCl 5 mg 10/22/23 18:06 10/23/23 06:45 Oxycodone 5 Mg Tablet PO 5 mg Q4H PRN PRN Administration Pain Score 4-10 Senna/Docusate Sodium 2 tablet 10/22/23 18:06 Senna/Docusate Sodium 1 Tablet PO BID PRN PRN Constipation Sodium Chloride 10 - 40 ml 10/22/23 18:34 10/23/23 10:20 0.9% Saline Lock 10 Ml Syringe IV 10 ml UD PRN Administration SALINE FLUSH [facility] Medical History Contact with and (suspected) exposure to other viral communicable diseases Home Medications ?Medication ?Instructions ?Recorded ?Last Taken ?Type amlodipine 5 mg tablet 5 mg PO DAILY BLOOD PRESSURE 06/29/22 10/21/23 History benazepril 10 mg tablet 10 mg PO DAILY BLOOD PRESSURE 06/29/22 10/21/23 History cholecalciferol (vitamin D3) 50 50 mcg PO DAILY SUPPLEMENT 06/29/22 10/21/23 History mcg (2,000 unit) capsule cyanocobalamin (vitamin B-12) 2,500 mcg PO DAILY SUPPLEMENT 06/29/22 10/21/23 History 2,500 mcg tablet ezetimibe 10 mg tablet 10 mg PO DAILY CHOLESTEROL 06/29/22 10/21/23 History meclizine 25 mg tablet 25 mg PO Q8H PRN DIZZINESS 06/29/22 10/21/23 History Allergy/AdvReac Type Severity Reaction Status Date / Time No Known Allergies Allergy Verified 10/22/23 16:16 Social History Smoking Status: Never smoker alcohol intake: never Review of Systems (Anesthesia) ROS Narrative System reviewed and no additional complaints, except as documented.
--- NOTE | 2023-10-23 12:00 | RAD_ITS ---
STUDY: X-RAY - PELVIS AND LEFT HIP REASON FOR EXAM: Female, 82 years old. ANTERIOR TECHNIQUE: 3 intraoperative spot films of the pelvis and left hip were obtained. COMPARISON: Pelvis and left femur radiographs dated 10/22/2023. FINDINGS: There are new postoperative changes related to left hip arthroplasty. There is no periprosthetic fracture. There is surrounding soft tissue gas, compatible with recent/ongoing surgery. There is a non-specific bowel gas pattern. Normal visualized soft tissue structures. Normal bilateral superior and inferior pubic rami. Normal pubic symphysis. Normal bilateral ischial tuberosities. RAD/Hip 1 view with Pelvis IMPRESSION: New postoperative changes related to left hip arthroplasty. No periprosthetic fracture. Electronically Signed: Clovis Lassiter MD at 14:43 EDT ,
--- NOTE | 2023-10-23 12:30 | FEM_PTH ---
PATIENT: LENA SAEZ LOC: MS3 U#:[id number] AGE/SX: 82/F ROOM: [facility] [place] RE10/22/[address]: Dr. Taryn Malik MD : 1940 BED: 1 DIS: 10/25/2023 SPEC #: [id number] RECD: 10/23/23 18:26 STATUS: JOSHUA REQ #: [id number] SIVAN: 10/23/23 12:[address]: London Garcia DEPT: SURGICAL PATHOLOGY RECD BY: Whit Frederick ENTERED: 10/24/23 08:14 SP TYPE: FEM HEAD OTHR DR: DO Dr. Taryn Tomas MD Dr. Paige Pierce, MD Dr. Steven Widmer, MD Tissues: Femoral region, NOS Procedures: Decalcification bone/plaque Surgery Specimen Level V Comments: @ Ordering doctor for DEC edited from to @ by ANDRÉS at 10/24/23 0905 @ Ordering doctor for SUV edited from to @ by ANDRÉS at 10/24/23 0905 @ Submitting doctor edited from to @ by ANDRÉS at 10/24/23 0905 HEADER OPERATION: ERAS left total hip- anterior PRE-OP DIAGNOSIS: Closed left hip fracture, unilateral primary osteoarthritis, left hip TISSUE SUBMITTED: Left hip femoral head bone and tissue MICROSCOPIC DIAGNOSIS Left hip bone and soft tissue, total hip replacement/resection: Femoral head and bone reaming with focal area hemorrhage, clinically hip fracture. A fragment of fibroconnective tissue. WILMER: 10/29/2023 MICROSCOPIC DESCRIPTION Slides are reviewed. GROSS DESCRIPTION Received is one container labeled with the patient's name and designated femoral head and tissue. The specimen consists of a light is[place] femoral head measuring 5.0 x 4.5 x 4.5cm. The articular surface is smooth. Resection margin is irregular and hemorrhagic. Also present in the specimen container are multiple irregular fragments of bone reaming and soft tissue measuring in aggregate 13.5 x 9.0 x 2.2cm. Hot Dip Tinning Supervisor sections are submitted in as follows: 1- soft tissue, 2- bone reamings, 3-femoral head, cassettes 2 & 3 are submitted after decalcification. KORY/ 10/24/2023 TC:5 CPT: 15879, 06118
[2023-10-23] MEDS: Cefazolin 2 GM in 0.9% Normal Saline (100mL Bag) 100 ML IV (12:50)
--- NOTE | 2023-10-23 12:52 | CON.PCM.OR_ITS ---
HPI Consult Data Date of Consult: 10/23/23 HPI Narrative Reason for Consultation: Left hip pain HPI Narrative: LENA SAEZ, is a 82 F with history of hypertension and hyperlipidemia who presents with left hip pain. Patient had a mechanical fall yesterday. Patient does not remember exactly what caused her to fall however she reports that she tripped and fell. She did not lose consciousness, she not had dizziness or syncopal episode. While in the emergency department she was noted to have a left femoral neck fracture. Medicine admitted overnight and cleared her for orthopedic treatment today. Orthopedics was consulted. Patient reports 9 out of 10 pain with motion better with immobilization in the left hip and groin area. She denies any associated numbness and tingling distally. Patient denies use of ambulatory assistive devices preinjury. Her niece is at bedside and confirms she is mobile and active and overall healthy based on regular medical examinations. She lives at home and maintains her own ADLs. She denies any antecedent hip pain however, she states has been treated for osteoarthritis in the past. [facility] Medical History Contact with and (suspected) exposure to other viral communicable diseases Home Medications ?Medication ?Instructions ?Recorded ?Last Taken ?Type amlodipine 5 mg tablet 5 mg PO DAILY BLOOD PRESSURE 06/29/22 10/21/23 History benazepril 10 mg tablet 10 mg PO DAILY BLOOD PRESSURE 06/29/22 10/21/23 History cholecalciferol (vitamin D3) 50 50 mcg PO DAILY SUPPLEMENT 06/29/22 10/21/23 History mcg (2,000 unit) capsule cyanocobalamin (vitamin B-12) 2,500 mcg PO DAILY SUPPLEMENT 06/29/22 10/21/23 History 2,500 mcg tablet ezetimibe 10 mg tablet 10 mg PO DAILY CHOLESTEROL 06/29/22 10/21/23 History meclizine 25 mg tablet 25 mg PO Q8H PRN DIZZINESS 06/29/22 10/21/23 History Allergy/AdvReac Type Severity Reaction Status Date / Time No Known Allergies Allergy Verified 10/22/23 16:16 no surgical history Social History Smoking Status: Never smoker alcohol intake: never Addt'l Information Additional Findings: History of hypertension History of hyperlipidemia ROS ROS Narrative Outside of what is mentioned in the HPI 14 point review of systems is negative Vital Signs Vital Signs Vital Signs: 10/22/23 16:16 10/22/23 17:29 10/22/23 18:38 Temperature 99 F 98 F 97.8 F Temperature Source Temporal Temporal Pulse Rate 104 H 101 H 98 Pulse Strength Respiratory Rate 20 H 18 18 Respiratory Effort Respiratory Depth Respiratory Pattern Blood Pressure 180/97 H 150/93 H 168/91 H Blood Pressure Mean 124 112 116 Blood Pressure Source Monitor Blood Pressure Position Semi-Fowlers Blood Pressure Location Right Arm Pulse Ox 92 96 93 Oxygen Delivery Method Room Air Room Air Oxygen Flow Rate (L/min) 10/22/23 20:22 10/22/23 20:25 10/22/23 23:50 Temperature 99.1 F Temperature Source Oral Pulse Rate 92 Pulse Strength Respiratory Rate 18 Respiratory Effort Normal Non-Labored Respiratory Depth Normal Respiratory Pattern Normal Blood Pressure 158/76 H Blood Pressure Mean 103 Blood Pressure Source Monitor Blood Pressure Position Semi-Fowlers Blood Pressure Location Right Arm Pulse Ox 95 86 Oxygen Delivery Method Room Air Room Air Oxygen Flow Rate (L/min) 10/22/23 23:53 10/23/23 06:30 10/23/23 06:40 Temperature 98.4 F 98.6 F Temperature Source Oral Oral Pulse Rate 79 88 Pulse Strength Respiratory Rate 18 18 Respiratory Effort Respiratory Depth Respiratory Pattern Blood Pressure 151/83 H 165/81 H Blood Pressure Mean 105 109 Blood Pressure Source Blood Pressure Position Blood Pressure Location Pulse Ox 92 93 Oxygen Delivery Method Nasal Cannula Nasal Cannula Nasal Cannula Oxygen Flow Rate (L/min) 2 2 10/23/23 09:44 10/23/23 09:44 10/23/23 09:46 Temperature 97.9 F Temperature Source Temporal Pulse Rate 86 Pulse Strength Normal (2+) Respiratory Rate 16 Respiratory Effort Normal Non-Labored Respiratory Depth Normal Respiratory Pattern Normal Blood Pressure 152/84 H Blood Pressure Mean 106 Blood Pressure Source Monitor Blood Pressure Position Supine Blood Pressure Location Right Arm Pulse Ox 93 Oxygen Delivery Method Nasal Cannula Nasal Cannula Oxygen Flow Rate (L/min) 2 2 10/23/23 11:55 Temperature 97.9 F Temperature Source Pulse Rate 86 Pulse Strength Respiratory Rate 16 Respiratory Effort Respiratory Depth Respiratory Pattern Blood Pressure 152/84 H Blood Pressure Mean Blood Pressure Source Blood Pressure Position Blood Pressure Location Pulse Ox 93 Oxygen Delivery Method Nasal Cannula Oxygen Flow Rate (L/min) 2 Weight Weight: 152 lb 12.485 oz Body Mass Index (BMI) 27.0 Physical Exam Const alert and oriented x3 General Appearance: cooperative HEENT normocephalic and head/scalp atraumatic Eyes PERRL Neck no JVD Resp normal respiratory effort Cardio regular rate GI non-distended Extremity Extremity Narrative: Left lower extremity: Skin clean, dry, and intact. Limb is shortened and externally rotated Motor is intact dorsiflexion, EHL and plantar flexion. Sensation is intact to light touch saphenous, sophia,l superficial peroneal, deep peroneal and tibial distributions. Calves are soft and supple. Skin no rashes or lesions noted Neuro CN's II-XII intact bilaterally Psych affect normal Medical Records Data Attestation: I reviewed the patient's medical records Lab / Micro Data Attestation: I reviewed the patient's lab results. 10/23/23 06:19 10/23/23 06:19 Labs: Laboratory Results - last 24 hr 10/22/23 16:40: WBC 10.6, RBC 4.91, Hgb 14.6, Hct 44.0, MCV 89.6, MCH 29.7, MCHC 33.2, RDW Std Deviation 40.0, RDW Coeff of Arlette 12.2, Plt Count 248, MPV 9.0, Immature Gran % (Auto) 0.900, Neut % (Auto) 75.6 H, Lymph % (Auto) 16.0 L, Payne % (Auto) 5.8, Eos % (Auto) 1.2, Baso % (Auto) 0.5, Absolute Neuts (auto) 8.0 H, Absolute Lymphs (auto) 1.70, Nucleated RBC % 0, Sodium 139, Potassium 3.5, Chloride 107, Carbon Dioxide 29.0, Anion Gap 3 L, BUN 16, Creatinine 1.07 H, Est GFR (MDRD) Af Amer 63, Est GFR (MDRD) Non-Af 52 L, BUN/Creatinine Ratio 15.0, G lucose 153 H, Calcium 9.6 10/23/23 06:19: WBC 12.7 H, RBC 4.92, Hgb 14.4, Hct 43.2, MCV 87.8, MCH 29.3, MCHC 33.3, RDW Std Deviation 39.3, RDW Coeff of Arlette 12.2, Plt Count 230, MPV 8.9, Immature Gran % (Auto) 0.400, Neut % (Auto) 81.7 H, Lymph % (Auto) 10.8 L, Payne % (Auto) 5.1, Eos % (Auto) 1.6, Baso % (Auto) 0.4, Absolute Neuts (auto) 10.4 H, Absolute Lymphs (auto) 1.37, Nucleated RBC % 0, Sodium 136, Potassium 3.8, Chloride 103, Carbon Dioxide 27.0, Anion Gap 6, BUN 13, Creatinine 0.96, Estim Creat Clear Calc 40.74, Est GFR (MDRD) Af Amer 71, Est GFR (MDRD) Non-Af 59 L, BUN/Creatinine Ratio 13.5, Glucose 130 H, Calcium 9.5, Blood Type A POSITIVE, Antibody Screen NEGATIVE Imaging Radiology Impression Chest X-Ray 10/22/23 16:30 IMPRESSION: No acute cardiopulmonary abnormality. No interval change. Electronically Signed: Raul Méndez MD at 16:56 EDT , Femur X-Ray 10/22/23 16:30 IMPRESSION: Acute left femoral neck fracture. Electronically Signed: Raul Ménedz MD at 16:54 EDT , Pelvis X-Ray 10/22/23 16:30 IMPRESSION: Left femoral neck fracture. Electronically Signed: Raul Méndez MD at 16:55 EDT , Images reviewed, agree with above, additionally patient has evidence of pre- existing left hip osteoarthritis with joint space narrowing subchondral sclerosis and marginal osteophyte formation Assessment & Plan Assessment/Plan (1) Closed left hip fracture: PLAN: Natural history of the disease process and treatment options were discussed the patient. Patient demonstrates an understanding was able to ask questions all questions were answered to the greatest my ability. Ultimately, we outlined 3 treatment options outside of nonsurgical intervention which was not recommended based on patient's overall health. Closed duction percutaneous pinning which was not recommended, partial hip replacement and total replacement. Based on patient's resisting osteoarthritis and overall activity level I did recommend total replacement. Risk and benefits of the procedure were discussed the patient clued about limited blood loss, DVTs, PEs, nervous damage complex, and risk of anesthesia, loss of life. We also discussed further fractures, leg length discrepancies and dislocations. Patient understands there is a greater risk of dislocation with total replacement a greater risk of future osteoarthritis pain with partial replacement. Ultimately, after thorough discussion of risk benefits and available treatment options we have elected to proceed with left hip replacement is the best field treatment option for the patient. Patient and her niece who is at bedside demonstrated her standing able to sign informed consent. (2) HTN (hypertension): PLAN: Per primary service, improved from admission. (3) Unilateral primary osteoarthritis, left hip: PLAN: As noted in the treatment plan above hip osteoarthritis does play a role in patient's treatment decision making. Based on patient's previous knee osteoarthritis I recommend total replacement as an appropriate treatment.
[2023-10-23] MEDS: TXA 1000mg in NS100 100ml (IVPB at Incision) 660 MG IV (13:13)
[2023-10-23] MEDS: TXA 1000mg in NS100 100ml (IVPB at Closure) 660 MG IV (14:15)
--- NOTE | 2023-10-23 14:16 | OP.PCM_ITS ---
Report of Operation Date of Procedure: 10/23/23 Pre-Operative Diagnosis: Left transcervical femoral neck fracture displaced Left hip primary osteoarthritis Post-Operative Diagnosis: Left transcervical femoral neck fracture displaced Left hip primary osteoarthritis Surgery/Procedure Performed:: Left direct anterior total hip replacement Description of Surgical Findings:: Stable hip with equal leg lengths Surgeon: London Garcia pv design and installation technician: Dustin Carter Type of Anesthesia: General Anesthesiologist: Jesus Gage Special Medications: 2 g Ancef, 1 g TXA at incision, 1 g TXA closure, joint cocktail (5 mg Duramorph, 30 mL of 0.5% Ropivicaine, 1000 units of epinephrine, 30 mg of Toradol) Specimen's removed: Bony cuts, femoral head fracture Estimated Blood Loss (mL): 450 Fluids Replaced: 1000 mL crystalloid Description of Procedure: Components used: 1. Insignia high offset Mario femoral stem size 4 2. Mario trident 2 acetabular shell size 52 mm 3. [place] X3 polyethylene E 4. [place] Biolox delta 36mm, 5mm femoral head Brief history operative indications: 82 yo F who failed conservative measures for their hip osteoarthritis with acute transcervical displaced femoral neck fracture. X-rays were consistent with osteoarthritis including joint space narrowing, osteophyte formation and subchondral cysts and acute transcervical femoral neck fracture. Total hip replacement was discussed with the patient with risks and benefits including but not limited to blood loss, DVTs, PEs, neurovascular damage, dislocation, general risks of anesthesia including loss of life. Patient demonstrated an understanding medical clearance is obtained the patient was consented for surgery. Procedure: On the date of procedure the patient's L hip was marked in the preoperative area. Patient was then taken back to the operating room where anesthesia assumed control of the C-spine and airway and administered anesthetic. Patient was transferred to the operating table and placed in the supine position. The hips were placed at the break of the bed and a sacral bump was placed. L The lower extremity was then prepped out in a sterile fashion using chlorhexidine while the surgeon scrubbed. The PA was vital in the positioning of the patient. Upon reentering the room the left lower extremity was draped in the standard orthopedic fashion and the incision was marked. A timeout was called and everyone agreed upon the side, the site, the procedure be performed, antibody given, and patient's identity. At this time incision was made through skin, subcutaneous tissue, and fat down to fascia. The fascia was then incised and the TFL was retracted laterally. A retractor was placed on the lateral border of the femoral neck. Attention was directed to the inferior portion of the abebe dias and all crossing vessels were identified and appropriately coagulated. A retractor was then placed on the medial portion of the femoral neck. The anterior capsule was then cleared of all soft tissue and then H shaped capsulotomy was made. The retractors were then placed inside the capsule. The femoral neck was identified and a cleanup cut was made. At this time a power corkscrew was used to remove the femoral head. Attention was then turned toward the acetabulum where the soft tissues were appropriately retracted and the acetabulum was sequentially reamed to 52 mm. A 52 mm cup was then selected and impacted into place. Acetabular liner was impacted into place and locking mechanism was verified. The position of the acetabular cup was then verified under live fluoroscopy. Attention was then turned to the femur. Soft tissue releases on the medial and lateral femoral neck were appropriately done, the leg was externally rotated and lateralized. A Echols retractor was placed medially and proximally to the greater trochanter this allowed appropriate visualization and exposure of the femoral canal. Rongeour was then used to remove excess lateral bone. A canal finder and entry broach were used to open the proximal canal. Once we verified we were down the femoral canal we subsequently broached up to a size 4 femur. The appropriate neck was placed in the previously selected head was trialed with a 5 mm neck. Traction was pulled and the hip was reduced with internal rotation. Once it was appropriately reduced and stability was checked. There was minimal shuck, equal leg lengths and appropriate stability with hyperextension and external rotation as well as with 90? flexion and internal rotation. Fluoroscopy was then also used to verify the position of the components and leg lengths using the contralateral side for comparison. The trial components were then dislocated the proximal femur was again exposed and the components were removed from the wound. The final components were verified and opened. The wound was copiously irrigated out with normal saline. The acetabulum was checked for any residual debris. The final components were placed and impacted. Traction and internal rotation were again used to reduce the hip. After adequate reduction the hip remained stable with appropriate leg lengths. The final components were once again checked with live fluoroscopy and were found to be satisfactory. The wound was then copiously irrigated with normal saline once more, and hemostasis was obtained. Closure was then done using #1 Vicryl runner to close the fascia. A 2-0 vicryl interuppted sutures were used to close the subcutaneous skin. A 3-0 Monocryl and Steri-Strips were used for final skin closure. A Silverlon dressing was placed. Patient was awakened by anesthesia and transferred to the [facility]. Patient was then transferred to the PACU for recovery. During the course of the procedure the physician milled rubber tender (PE) played a vital role. Their intimate knowledge of my steps in the procedure aided in safe and expedient completion of the procedure. The PE played a vital rolls in positioning particularly in obtaining the appropriate positioning of the sacral bump. The PE was also vital in the retraction of soft tissues during the exposure and especially the femoral work as this is a vital part of the procedure to prevent complications and fractures. The PE was also vital and protecting soft tissues during times of bony cuts and reaming. He also played a vital role in closure with my direct supervision. The PE was also important during reduction and dislocation of the joint and trials intraoperatively. Postoperative plan: Patient will get 24 hours postop antibiotics. Patient will get in-house physical therapy and will be weight-bear as tolerated. Patient will follow up in office in 2 weeks for a wound check and x-rays. Aspirin 81 mg twice daily. Complications No intraoperative complications Admit VTE Documentation VTE Present on Admission: No VTE Mechan Device Prophylaxis: SCD's and Thigh High ADENIKE Hose VTE Pharm Prophylaxis ordered?: Yes
[2023-10-23] MEDS: JPS (Morphine 10mg/ml) OPERA.SITE (14:23)
--- NOTE | 2023-10-23 14:40 | CHAPLAIN ---
Type of Pastoral Visit ___ Initial Visit ___ Follow-up Visit ___ On-call Visit ___ General Patient Visit ___ Spiritual Assessment ___ Family Conference ___ Bereavement ___ Rapid Response ___ Code Blue ___ Other (describe below) Pastoral Care Referral From ___ Patient ___ Family ___ Nurse ___ Physician ___ Radiology Asst ___ Wood Craftsman ___ Other (describe below) Sacrament/Intervention ___ Active listening ___ Anointing ___ Confucianist ___ Bereavement ___ Communion ___ Ruthie exploration ___ ___ Life review ___ Prayer ___ Reconciliation ___ Sacrament of Sick ___ Supportive presence ___ Wedding ___ Other (describe below) Pastoral Comments patient and bed are out of the room; left a calling card
--- NOTE | 2023-10-23 15:02 | PCM.POST.ANE ---
Anesthesia: Postop Eval I Current Vital Signs Temperature: 97.6 F Pulse Rate: 90 Blood Pressure: 132/62 Respiratory Rate: 16 Pulse Ox: 96 Oxygen Delivery Method: Nasal Cannula Oxygen Flow Rate (L/min): 2 Assessment Airway patent: Yes Spontaneous unlabored respirations: Yes Mental status: Awake and Calm nausea: No Vomiting: No Anesthesia Complication: No Fluid Hydration Crystalloid volume administer (ml): 700 Total IV fluid infused: 700 Progress Note Anesthesia document: Postop Eval 1 completed: Yes
--- NOTE | 2023-10-23 15:05 | RAD_ITS ---
STUDY: X-RAY - PELVIS AND LEFT HIP REASON FOR EXAM: Female, 82 years old. Post Op -- AP both hips on single alexander/lateral of op hip PACU TECHNIQUE: 2 views of the pelvis and left hip. COMPARISON: Pelvis and left femur radiographs dated 10/22/2023 FINDINGS: There are new postoperative changes related to left hip arthroplasty. There is no periprosthetic fracture. There is surrounding soft tissue gas, compatible with recent surgery. There is mild degenerative arthrosis of the right hip joint. There is a non-specific bowel gas pattern. Normal visualized soft tissue structures. Normal bilateral superior and inferior pubic rami. Normal pubic symphysis. Normal bilateral ischial tuberosities. RAD/Hip Min 2 Views (Portable) IMPRESSION: New postoperative changes related to left hip arthroplasty. No periprosthetic fracture. Mild degenerative arthrosis of the right hip joint. Electronically Signed: Clovis Lassiter MD at 15:32 EDT ,
--- NOTE | 2023-10-23 15:48 | POSTOPAN2_ITS ---
Anesthesia Postop Eval I Sum Postop Eval Completion status Anesthesia document: Postop Eval 1 completed: Yes Anesthesia Postop Eval I Summary Anesthesia Postop Eval I Summary: Anesthesia Postop Eval I: Assessment Summary Airway patent Yes 10/23/23 15:04 [email or web address] Spontaneous unlabored Yes 10/23/23 15:04 BAG [email or web address] respirations Mental status Awake,Calm 10/23/23 15:04 [email or web address] nausea No 10/23/23 15:04 BAG ADJUSTER.[email or web address] Vomiting No 10/23/23 15:04 BAG [email or web address].[email or web address] Anesthesia Postop Eval I: Fluid Summary Crystalloid volume administer 700 10/23/23 15:04 BAG [email or web address].GDOTT (ml) Colloids volume administered ( ml) Blood Product volume administered (ml) Total IV fluid infused 700 10/23/23 15:04 BAG [email or web address].[email or web address] Anesthesia Postop Eval I: Summary Notes Anesthesia Complication No 10/23/23 15:04 BAG [email or web address].[email or web address] Anesthesia Complication Comment: Post-operative progress note Anesthesia: Postop Eval II Evaluation Mental status: Awake and Calm Pain Level: 1 nausea: No Vomiting: No Complications Anesthesia Complication: No
--- NOTE | 2023-10-23 15:48 | PCM.POSTANE2 ---
Anesthesia Postop Eval I Sum Postop Eval Completion status Anesthesia document: Postop Eval 1 completed: Yes Anesthesia Postop Eval I Summary Anesthesia Postop Eval I Summary: Anesthesia Postop Eval I: Assessment Summary Airway patent Yes 10/23/23 15:04 COLOR CONTROL SUPERVISOR.[email or web address] Spontaneous unlabored Yes 10/23/23 15:04 COLOR CONTROL SUPERVISOR.[email or web address] respirations Mental status Awake,Calm 10/23/23 15:04 COLOR CONTROL SUPERVISOR.[email or web address] nausea No 10/23/23 15:04 COLOR CONTROL SUPERVISOR.GDOTT Vomiting No 10/23/23 15:04 COLOR CONTROL SUPERVISOR.[email or web address] Anesthesia Postop Eval I: Fluid Summary Crystalloid volume administer 700 10/23/23 15:04 COLOR CONTROL SUPERVISOR.GDOTT (ml) Colloids volume administered ( ml) Blood Product volume administered (ml) Total IV fluid infused 700 10/23/23 15:04 COLOR CONTROL SUPERVISOR.GDOTT Anesthesia Postop Eval I: Summary Notes Anesthesia Complication No 10/23/23 15:04 COLOR CONTROL SUPERVISOR.GDOTT Anesthesia Complication Comment: Post-operative progress note Anesthesia: Postop Eval II Evaluation Mental status: Awake and Calm Pain Level: 1 nausea: No Vomiting: No Complications Anesthesia Complication: No
[2023-10-23] MEDS: Ondansetron 4 MG/2 ML Vial IV (16:47)
[2023-10-23] MEDS: Cefazolin 1 GM/50 ML BAG IV (20:53)
[2023-10-23] MEDS: Ezetimibe 10 MG Tablet PO (20:57)
[2023-10-23] MEDS: amLODIPine 5 MG Tablet PO (20:58)
[2023-10-23] MEDS: Aspirin 81 MG TAB.CHEW PO (20:58)
[2023-10-23] MEDS: Calcium Carbonate 500 MG Tablet 1000 MG PO (23:10)
[2023-10-24 04:27] VITALS: BP 128/64; PULSE 84; RESP 18; TEMP 36.7; O2SAT 95
[2023-10-24] MEDS: Cefazolin 1 GM/50 ML BAG IV (05:15)
[2023-10-24] MEDS: Acetaminophen 500 MG Tablet 1000 MG PO ×3 (05:15→21:46)
--- NOTE | 2023-10-24 06:27 | PN.ORTHO_ITS ---
Subjective Subjective Patient doing well overall. No acute events overnight. Comfortable in bed this morning. Patient does report she was able to get up to the side of the bed with minimal discomfort. Overall reports improvement from yesterday at this time prior to surgery. Labs have not yet returned. Objective Data Objective Data Vital Signs: Vital Signs Temp Pulse Resp BP Pulse Ox O2 Del Method O2 Flow Rate 98.1 F 84 18 128/64 H 95 Nasal Cannula 2 10/24/23 04:10/24/23 04:10/24/23 04:27 10/24/23 04:27 10/24/23 04:10/24/23 04:43 10/24/23 04:43 FiO2 97 10/24/23 04:43 Oxygen Flow Rate (L/min) 2 Oxygen Delivery Method Nasal Cannula Weight: 152 lb 12.485 oz Body Mass Index (BMI) 27.0 Intake & Output: Intake and Output for Last 24 Hours 10/22/23 10/23/23 10/24/23 23:59 23:59 23:59 Intake Total 0 / 0 480 / 480 1150 / 1150 Output Total 700 / 700 1330 / 1330 500 / 500 Balance -700 / -700 -850 / -850 650 / 650 Lab / Micro Data Attestation: I reviewed the patient's lab results. 10/23/23 06:19 10/23/23 06:19 Labs: Laboratory Results - last 24 hr 10/23/23 06:19: WBC 12.7 H, RBC 4.92, Hgb 14.4, Hct 43.2, MCV 87.8, MCH 29.3, MCHC 33.3, RDW Std Deviation 39.3, RDW Coeff of Arlette 12.2, Plt Count 230, MPV 8.9, Immature Gran % (Auto) 0.400, Neut % (Auto) 81.7 H, Lymph % (Auto) 10.8 L, [place] % (Auto) 5.1, Eos % (Auto) 1.6, Baso % (Auto) 0.4, Absolute Neuts (auto) 10.4 H, Absolute Lymphs (auto) 1.37, Nucleated RBC % 0, Sodium 136, Potassium 3.8, Chloride 103, Carbon Dioxide 27.0, Anion Gap 6, BUN 13, Creatinine 0.96, Estim Creat Clear Calc 40.74, Est GFR (MDRD) Af Amer 71, Est GFR (MDRD) Non-Af 59 L, BUN/Creatinine Ratio 13.5, Glucose 130 H, Calcium 9.5, Blood Type A POSITIVE, Antibody Screen NEGATIVE Radiography Diagnostic Testing: Radiology Impression Hip/Pelvis X-Ray 10/23/23 12:00 IMPRESSION: New postoperative changes related to left hip arthroplasty. No periprosthetic fracture. Electronically Signed: Clovis Lassiter MD at 14:43 EDT , Hip X-Ray 10/23/23 15:05 IMPRESSION: New postoperative changes related to left hip arthroplasty. No periprosthetic fracture. Mild degenerative arthrosis of the right hip joint. Electronically Signed: Clovis Lassiter MD at 15:32 EDT , Physical Exam Const alert, oriented x3 and no apparent distress General Appearance: cooperative Extremity Extremity Narrative: Left lower extremity: Dressing is clean dry and intact Sensations intact to light touch saphenous, sural, superficial peroneal, deep peroneal, and tibial distributions Motors intact EHL, DF, PF calves are soft and supple, thigh is soft and supple Assessment & Plan Assessment/Plan (1) Closed left hip fracture: PLAN: Postop day 1 status post left direct anterior total replacement 1. Continue physical therapy: Weightbearing as tolerated, anterior precautions for 6 weeks 2. DVT prophylaxis: Recommend baby aspirin twice a day to be continued for 4 weeks upon discharge 3. Pain control: Per primary service. Patient tolerating Tylenol at this time. Would minimize narcotics based on patient's age 4. Constipation: Discussed with patient constipation associated with surgery and pain medications continue with bowel regimen Disposition: Based on patient's age and injury anticipate discharge to rehabilitation or senior care as an inpatient with continuation of care for eventual discharge home after that. I did discuss this with patient there is an understanding. We discussed natural history of this disease process and anticipated recovery based on patient's age injury and surgical intervention as well as associated medical comorbidities. Patient's dressing can be removed 5 days postoperatively. She be changed as needed for any drainage especially with drainage associated with mobilizing patient. Patient needs to follow-up in the office in 2 weeks for follow-up x-rays and wound check. DVT prophylaxis on discharge as noted above. Please call orthopedics for any further questions or concerns. If there are any delays in follow-up care patient's sutures can be removed on postoperative day 13. ABDIAZIZ [facility] Office:
[2023-10-24 06:53] LABS: Hematocrit 33.2 % (37-47); Hemoglobin 11.5 g/dL (12.0-15.0); Mean Corp Hgb Conc 34.6 g/dL (32-36); Mean Corpuscular Hgb 29.7 pg (27.0-32.0); Mean Corpuscular Volume 85.8 fL (81-99); Platelet Count 203 K/mm3 (150-450); RBC Distribution Width SD 37.5 fl (35.1-43.9); Red Blood Count 3.87 M/mm3 (4.2-5.4)
[2023-10-24 07:22] LABS: Anion Gap 5 (5-15); BUN 17 mg/dL (7-18); BUN/Creat Ratio 18.2 RATIO (10-20); Calcium,Total 8.8 mg/dL (8.5-10.1); Chloride 104 mmol/L (98-107); Creatinine, Serum 0.94 mg/dL (0.55-1.02); EST Glomerular Filtration Rate 61 mL/min (>60); Est Glom Filt Rate - Afr Amer 73 mL/min (>60); Estimated Creatinine Clearance 41.61 ml/min; Glucose 157 mg/dL (74-106); Potassium 4.1 mmol/L (3.5-5.1); Sodium Level 135 mmol/L (136-145)
[2023-10-24 08:30] VITALS: BP 128/62; PULSE 80; RESP 16; TEMP 36.8; O2SAT 94
[2023-10-24] MEDS: Aspirin 81 MG TAB.CHEW PO ×2 (08:41→21:46)
--- NOTE | 2023-10-24 10:43 | PN_ITS ---
Subjective Subjective Patient seen and examined. She had no complaints. Pain is well-controlled. She is to postop day 1 for left anterior total hip replacement. She has remained hemodynamically stable. Objective Data Objective Data Vital Signs: Vital Signs Temp Pulse Resp BP Pulse Ox O2 Del Method O2 Flow Rate 98.1 F 84 18 128/64 H 95 Nasal Cannula 2 10/24/23 04:27 10/24/23 04:27 10/24/23 04:27 10/24/23 04:27 10/24/23 04:27 10/24/23 09:21 10/24/23 09:21 FiO2 97 10/24/23 04:43 Oxygen Flow Rate (L/min) 2 Oxygen Delivery Method Nasal Cannula Weight: 152 lb 12.485 oz Body Mass Index (BMI) 27.0 Intake & Output: Intake and Output for Last 24 Hours 10/22/23 10/23/23 10/24/23 23:59 23:59 23:59 Intake Total 0 / 0 480 / 480 1150 / 1150 Output Total 700 / 700 1330 / 1330 500 / 500 Balance -700 / -700 -850 / -850 650 / 650 Lab / Micro Data 10/24/23 06:34 10/24/23 06:34 Labs: Laboratory Results - last 24 hr 10/24/23 06:34: WBC 19.0 H, RBC 3.87 L, Hgb 11.5 L, Hct 33.2 L, MCV 85.8, MCH 29.7, MCHC 34.6, RDW Std Deviation 37.5, RDW Coeff of Arlette 12.0, Plt Count 203, MPV 9.0, Sodium 135 L, Potassium 4.1, Chloride 104, Carbon Dioxide 26.0, Anion Gap 5, BUN 17, Creatinine 0.94, Estim Creat Clear Calc 41.61, Est GFR (MDRD) Af Amer 73, Est GFR (MDRD) Non-Af 61, BUN/Creatinine Ratio 18.2, Glucose 157 H, Calcium 8.8 Radiography Diagnostic Testing: Radiology Impression Hip/Pelvis X-Ray 10/23/23 12:00 IMPRESSION: New postoperative changes related to left hip arthroplasty. No periprosthetic fracture. Electronically Signed: Clovis Lassiter MD at 14:43 EDT , Hip X-Ray 10/23/23 15:05 IMPRESSION: New postoperative changes related to left hip arthroplasty. No periprosthetic fracture. Mild degenerative arthrosis of the right hip joint. Electronically Signed: Clovis Lassiter MD at 15:32 EDT , Physical Exam Const alert, oriented x3 and no apparent distress General Appearance: cooperative and well developed HEENT normocephalic, head/scalp atraumatic, moist oral mucous membranes and oropharynx normal Eyes PERRL and EOMs intact bilaterally Neck no lymphadenopathy, supple and no JVD Lymph Lymphatic: no lymphedema noted and lymphedema Resp Resp Narrative: mildly diminished breath sounds bibasally, no wheezes or crackles. On room 2L of oxygen. Cardio regular rate, regular rhythm, S1 normal heart sound, S2 normal heart sound and no murmurs GI normal to inspection, nondistended, normoactive bowel sounds, soft to palpation, non-tender and non-distended Extremity Extremity Narrative: intact dressing over left hip General Extremity: no tenderness to palpation of joints or extremities Skin General Skin Exam: no breakdown Neuro CN's II-XII intact bilaterally, no focal motor deficits, no sensory deficits noted and deep tendon reflexes 2+ bilaterally Motor Exam: strength 5/5 throughout and general weakness Psych thought process normal and cooperative Appearance: appropriate Assessment & Plan Assessment/Plan (1) Closed left hip fracture: PLAN: Plan #Left femoral neck fracture due to mechanical fall * s/p left anterior hip replacement. Today is POD 1. * orthopedic surgery on board. * sustained a mechanical fall whist walking. * imaging showed a left femoral neck fracture * orthopedic surgery on board * on PO tylenol, oxycodone and IV morphine prn for pain * for surgery today * fall precautions * PT/OT on board. Fall precautions. * #Elevated Cr: Cr was 1.07 on admission. No known baseline Cr. Hydrated with IVF. Will monitor #Hypertension * BP was elevated on admission * on PO amlodipine and benazepril. Resume benazepril which was held on admission due to elevated Cr. * IV hydralazine prn. * DVT prophylaxis: on aspirin 81mg bid. Disposition: will benefit from placement. Case management on board Charges/Coding Visit Charges Inpatient E&M: 76735 Subs Hosp L2
--- NOTE | 2023-10-24 13:22 | CASEMGMT ---
Social Work- SW met with pt to discuss advance directives.? Pt confirms she has completed a living will and health care POA naming Vianney, niece.? Pt notified that documents are not on file at [facility] and SW requested they be brought in for scanning into the EMR.? CRISTY Rosenthal
--- NOTE | 2023-10-24 13:22 | CASEMGMT ---
Addendum entered by Nichelle Valdez 10/24/23 15:25: Social Work- [facility] accepted pt and is starting precert. Family updated. CRISTY Rosenthal Original Note: Social Work- A list of SNF providers including quality and resource use data and consistent with the patient?s preferred geographic region, medical needs, and insurance network were provided from the [employer] Guide. Pt selected [facility] as [facility]. Referral completed to [facility]. CRISTY Rosenthal
--- NOTE | 2023-10-24 14:58 | CHAPLAIN ---
Type of Pastoral Visit _x__ Initial Visit ___ Follow-up Visit ___ On-call Visit ___ General Patient Visit ___ Spiritual Assessment ___ Family Conference ___ Bereavement ___ Rapid Response ___ Code Blue ___ Other (describe below) Pastoral Care Referral From _x__ Patient ___ Family ___ Nurse ___ Physician ___ Creative Services Coordinator ___ Product Line Manager ___ Other (describe below) Sacrament/Intervention _x__ Active listening ___ Anointing ___ Orthodoxy ___ Bereavement ___ Communion ___ Ruthie exploration ___ _x__ Life review _x__ Prayer ___ Reconciliation ___ Sacrament of Sick ___ Supportive presence ___ Wedding ___ Other (describe below) Pastoral Comments patient reports on her status and of anticipation of her recovery and where that will take place; family members come and go in room; patient acknowledges good family support and a strong connection to a yarsani; 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
[2023-10-24] MEDS: oxyCODONE 5 MG Tablet PO (17:49)
[2023-10-24] MEDS: amLODIPine 5 MG Tablet PO (21:46)
[2023-10-24] MEDS: Ezetimibe 10 MG Tablet PO (21:46)
[2023-10-24] MEDS: 0.9% Saline Lock 10 ML Syringe IV (21:48)
[2023-10-24 21:50] VITALS: BP 114/51; PULSE 93; RESP 18; TEMP 37; O2SAT 94
[2023-10-25 03:53] VITALS: BP 132/72; PULSE 75; RESP 18; TEMP 36.5; O2SAT 95
[2023-10-25] MEDS: Acetaminophen 500 MG Tablet 1000 MG PO ×2 (06:11→13:22)
[2023-10-25] MEDS: oxyCODONE 5 MG Tablet PO (06:14)
[2023-10-25 08:11] VITALS: BP 136/60; PULSE 87; RESP 18; TEMP 37.1; O2SAT 94
[2023-10-25] MEDS: Ensure Surgery 237 ML LIQUID PO (08:21)
[2023-10-25] MEDS: 0.9% Saline Lock 10 ML Syringe IV ×2 (08:22→13:27)
[2023-10-25] MEDS: Morphine 2 MG/ML Syringe IV (08:22)
[2023-10-25] MEDS: Aspirin 81 MG TAB.CHEW PO (09:33)
--- NOTE | 2023-10-25 09:53 | PN_ITS ---
Subjective Subjective Patient seen and examined. She had no active complaints today. Pain was well controlled. Review of systems is otherwise negative. She has remained hemodynamically stable. Objective Data Objective Data Vital Signs: Vital Signs Temp Pulse Resp BP Pulse Ox O2 Del Method O2 Flow Rate 98.7 F 87 18 136/60 H 94 Room Air 2 10/25/23 08:11 10/25/23 08:11 10/25/23 08:11 10/25/23 08:11 10/25/23 08:11 10/25/23 08:11 10/25/23 04:02 FiO2 97 10/24/23 04:43 Oxygen Flow Rate (L/min) 2 Oxygen Delivery Method Room Air Weight: 152 lb 12.485 oz Body Mass Index (BMI) 27.0 Intake & Output: Intake and Output for Last 24 Hours 10/23/23 10/24/23 10/25/23 23:59 23:59 23:59 Intake Total 480 / 480 1650 / 1650 600 / 600 Output Total 1330 / 1330 850 / 850 Balance -850 / -850 800 / 800 600 / 600 Lab / Micro Data 10/24/23 06:34 10/24/23 06:34 Physical Exam Const alert, oriented x3 and no apparent distress General Appearance: cooperative and well developed HEENT normocephalic, head/scalp atraumatic, moist oral mucous membranes and oropharynx normal Eyes PERRL and EOMs intact bilaterally Neck no lymphadenopathy, supple and no JVD Lymph Lymphatic: no lymphadenopathy noted, no lymphedema noted and lymphedema Resp Resp Narrative: mildly diminished breath sounds bibasally, no wheezes or crackles. On room air. Cardio regular rate, regular rhythm, S1 normal heart sound, S2 normal heart sound and no murmurs GI normal to inspection, nondistended, normoactive bowel sounds, soft to palpation, non-tender and non-distended Extremity Extremity Narrative: intact dressing over left hip General Extremity: no tenderness to palpation of joints or extremities Skin General Skin Exam: no breakdown Neuro CN's II-XII intact bilaterally, no focal motor deficits, no sensory deficits noted and deep tendon reflexes 2+ bilaterally Motor Exam: strength 5/5 throughout and general weakness Psych thought process normal and cooperative Appearance: appropriate Assessment & Plan Assessment/Plan (1) Closed left hip fracture: PLAN: Plan #Left femoral neck fracture due to mechanical fall * s/p left anterior hip replacement. Today is POD 2. * orthopedic surgery on board. * sustained a mechanical fall whist walking. * imaging showed a left femoral neck fracture * orthopedic surgery on board * on PO tylenol, oxycodone and IV morphine prn for pain * for surgery today * fall precautions * PT/OT on board. Fall precautions. * #Elevated Cr: Stable. Creatinine was around 1. Will monitor. #Hypertension * BP was elevated on admission * on PO amlodipine and benazepril. * IV hydralazine prn. * DVT prophylaxis: on aspirin 81mg bid. Disposition: will benefit from placement. Case management on board Charges/Coding Visit Charges Inpatient E&M: 61060 Subs Hosp L2
--- NOTE | 2023-10-25 10:09 | NURSING ---
verbal report given to Yamile Talavera RN
[2023-10-25] MEDS: Calcium Carbonate 500 MG Tablet 1000 MG PO (11:01)
--- NOTE | 2023-10-25 11:40 | TREXTCAR_ITS ---
Diet Diet Order/Speech Therapy: 10/23/23 16:39 Diet: Regular - General Routine Orders/Code Status Enema Type: Fleetz Enema Frequency: Daily PRN Suppository Type: Dulcolax 10mg Suppository Frequency: Daily PRN O2 Frequency: PRN Keep PO Greater than or Equal to (%): 90 Wound(s) LEFT ANTERIOR HIP: Wound Type: Surgical Incision Therapies Weight Bearing: Weight bearing as tolerated Physical Therapy: Eval and Treat Occupational Therapy: Eval and Treat Problem/Diagnosis (1) Closed left hip fracture: Status: Acute Code(s): S72.002A - Fracture of unspecified part of neck of left femur, initial encounter for closed fracture Plan #Left femoral neck fracture due to mechanical fall * s/p left anterior hip replacement. Today is POD 2. * orthopedic surgery on board. * sustained a mechanical fall whist walking. * imaging showed a left femoral neck fracture * orthopedic surgery on board * on PO tylenol, oxycodone and IV morphine prn for pain * for surgery today * fall precautions * PT/OT on board. Fall precautions. * #Elevated Cr: Stable. Creatinine was around 1. Will monitor. #Hypertension * BP was elevated on admission * on PO amlodipine and benazepril. * IV hydralazine prn. * DVT prophylaxis: on aspirin 81mg bid. Disposition: will benefit from placement. Case management on board Allergies/Procedures Done in Hospital Allergies No Known Allergies Allergy (Verified 10/22/23 16:16) Procedures: None Type of Care/Length of Stay Estimated LOS: Convalescent Care Less Than 30 days Type of Care Needed: Skilled Rehab Potential: Fair Prognosis: Fair Additional Orders/Day of Discharge Day of Discharge: 10/25/23 Discharge Plan Admission Admit Date/Time: 10/22/23 17:26 Primary Reason for Your Visit: left femoral neck fracure Attending Provider: Taryn Malik Primary Care Provider: Aneta Alcantara Consulting Providers: London Garcia; Danette Edmonds Instructions Patient Instructions: Hip Fracture Surgery ..., Hip Fx Surg Dc Discharge Orders/Prescriptions Prescriptions: New aspirin 81 mg Tablet,Chewable 81 mg PO BID Qty: 56 0RF oxycodone 5 mg Tablet 5 mg PO Q4H PRN PRN (Reason: Pain Score 4-10) 4 Days Qty: 24 0RF Continued meclizine 25 mg tablet 25 mg PO Q8H PRN (Reason: DIZZINESS ) Patient Comments: PT STATES THEY TAKE ONE TABLET BY MOUTH EVERY NIGHT ( OF 10/22/23) amlodipine 5 mg tablet 5 mg PO DAILY benazepril 10 mg tablet 10 mg PO DAILY ezetimibe 10 mg tablet 10 mg PO DAILY cholecalciferol (vitamin D3) 50 mcg (2,000 unit) capsule 50 mcg PO DAILY cyanocobalamin (vitamin B-12) 2,500 mcg tablet 2,500 mcg PO DAILY Referrals / Follow Up: Aneta Alcantara DO [Primary Care Provider] - Within 1 Week London Garcia MD [Med Staff - Active Staff] - Within 2 Weeks Disposition Disposition (needs filled in before D/C Order can be placed): [facility]
--- NOTE | 2023-10-25 11:41 | DS.PCM_ITS ---
Providers Date of Admission: 10/22/23 Date of Discharge: 10/25/23 Primary Care Physician: Dr. Aneta Alcantara, DO Consultations 10/22/23 18:06 Consult: Orthopedics Routine Consulting Provider: London Garcia Reason for Consult: left fem neck fx EMERGENT Consult: No MD Notified: Yes Date Notified: 10/22/23 Time Notified: 17:29 Method of Notification: ED Physician Initiated Reason For Visit: LEFT FEMORAL NECK FX Diagnosis Discharge Diagnosis (1) Closed left hip fracture: Status: Acute Code(s): S72.002A - Fracture of unspecified part of neck of left femur, initial encounter for closed fracture Plan #Left femoral neck fracture due to mechanical fall * s/p left anterior hip replacement. Today is POD 2. * orthopedic surgery on board. * sustained a mechanical fall whist walking. * imaging showed a left femoral neck fracture * orthopedic surgery on board * on PO tylenol, oxycodone and IV morphine prn for pain * for surgery today * fall precautions * PT/OT on board. Fall precautions. * #Elevated Cr: Stable. Creatinine was around 1. Will monitor. #Hypertension * BP was elevated on admission * on PO amlodipine and benazepril. * IV hydralazine prn. * DVT prophylaxis: on aspirin 81mg bid. Disposition: will benefit from placement. Case management on board Medications at Discharge Home Medications amlodipine 5 mg tablet 5 mg PO DAILY BLOOD PRESSURE 06/29/22 benazepril 10 mg tablet 10 mg PO DAILY BLOOD PRESSURE 06/29/22 cholecalciferol (vitamin D3) 50 mcg (2,000 unit) capsule 50 mcg PO DAILY SUPPLEMENT 06/29/22 cyanocobalamin (vitamin B-12) 2,500 mcg tablet 2,500 mcg PO DAILY SUPPLEMENT 06/29/22 ezetimibe 10 mg tablet 10 mg PO DAILY CHOLESTEROL 06/29/22 meclizine 25 mg tablet 25 mg PO Q8H PRN DIZZINESS 06/29/22 aspirin 81 mg chewable tablet 81 mg PO BID blood thinner #56 tabs 10/25/23 oxycodone 5 mg tablet 5 mg PO Q4H PRN PRN Pain Score 4-10 4 days #24 tabs 10/25/23 Hospital Course Summary of Care Provided Minutes Spent on Discharge: 55 Hospital Course: Patient is an 82-year-old female with past medical history as outlined including hypertension was admitted through the ED on 10/22/2023 with a complaint of left hip pain after mechanical fall. She says she walks 4 miles daily. She said she tripped and fell and landed on her left hip. She had severe pain and was unable to weight bear so she came in to the ED. imaging done showed left femoral neck fracture and orthopedic surgery was consulted. She was admitted and managed for left femoral neck fracture due to mechanical fall. She had left anterior hip replacement on 11/23/2023. Postop course was uncomplicated and she was placed on p.o. aspirin 81 mg twice daily for DVT prophylaxis. She remained stable and was discharged to [facility] on 10/25/2023. She was discharged on p.o. aspirin 81 mg twice daily for 4 weeks for DVT prophylaxis was also discharged with a prescription for p.o. oxycodone 5 mg every 4 hours as needed for total of 24 tablets for 3 days. She is follow-up with her primary care doctor and orthopedic surgery within 1 to 2 weeks. Patient seen and examined prior to discharge. She had no complaints and felt well. She had an uneventful night. Review of systems otherwise negative. Labs and vitals reviewed. Home medication reviewed and reconciled. Physical Exam Const alert, oriented x3 and no apparent distress General Appearance: cooperative, comfortable and well developed Orientation / Consciousness: awake HEENT normocephalic, head/scalp atraumatic, hearing grossly normal bilaterally, moist oral mucous membranes and oropharynx normal Mouth: oral and palatal mucosa normal Eyes PERRL, EOMs intact bilaterally and conjunctivae normal Neck no lymphadenopathy, supple and no JVD Lymph Lymphatic: no lymphadenopathy noted, no lymphedema noted and lymphedema Resp Resp Narrative: mildly diminished breath sounds bibasally, no wheezes or crackles. On room air. Cardio regular rate, regular rhythm, S1 normal heart sound, S2 normal heart sound and no murmurs GI normal to inspection, nondistended, normoactive bowel sounds, soft to palpation, non-tender and non-distended Extremity Extremity Narrative: intact dressing over left hip General Extremity: no tenderness to palpation of joints or extremities Skin General Skin Exam: no breakdown Neuro oriented x3, CN's II-XII intact bilaterally, moves all extremities, no focal motor deficits, no sensory deficits noted and deep tendon reflexes 2+ bilaterally Sensorium / Orientation: awake and alert Motor Exam: strength 5/5 throughout and general weakness Psych thought process normal and cooperative Appearance: appropriate Weight / BMI Weight Weight: 152 lb 12.485 oz Body Mass Index (BMI) 27.0 ABG / Lab / Microbiology Data 10/24/23 06:34 10/24/23 06:34 D/C Instructions Discharge Diet: Low fat / Low cholesterol Discharge Activity: Return to Normal Activity Weight Bearing Status: Weight bearing as tolerated Meaningful Use Info Meaningful Use Meaningful Use Diagnoses (Choose all that apply): None applicable Ischemic Stroke Statin Dosing Therapy Reference: STATIN DOSE THERAPY REFERENCE: * Patients > 75 years receive moderate or high dose statin therapy. * Patients 75 years or YOUNGER should receive HIGH intensity statin dose unless contraindicated. You will be required to document reason for non-treatment if statin daily dose does not meet guidelines. HIGH DOSE STATIN THERAPY DAILY Atorvastatin > than or = to 40 mg Rosuvastatin > than or = to 20 mg Amlodipine + Atorvastatin > than or = to 2.5/40 mg Ezetimibe + Simvastatin 10/80 mg Simvastatin 80mg Discharge Plan Admission Admit Date/Time: 10/22/23 17:26 Primary Reason for Your Visit: left femoral neck fracure Attending Provider: Taryn Malik Primary Care Provider: Aneta Alcantara Consulting Providers: London Garcia; Danette Edmonds Instructions Patient Instructions: Hip Fracture Surgery ..., Hip Fx Surg Dc Discharge Orders/Prescriptions Prescriptions: New aspirin 81 mg Tablet,Chewable 81 mg PO BID Qty: 56 0RF oxycodone 5 mg Tablet 5 mg PO Q4H PRN PRN (Reason: Pain Score 4-10) 4 Days Qty: 24 0RF Continued meclizine 25 mg tablet 25 mg PO Q8H PRN (Reason: DIZZINESS ) Patient Comments: PT STATES THEY TAKE ONE TABLET BY MOUTH EVERY NIGHT ( OF 10/22/23) amlodipine 5 mg tablet 5 mg PO DAILY benazepril 10 mg tablet 10 mg PO DAILY ezetimibe 10 mg tablet 10 mg PO DAILY cholecalciferol (vitamin D3) 50 mcg (2,000 unit) capsule 50 mcg PO DAILY cyanocobalamin (vitamin B-12) 2,500 mcg tablet 2,500 mcg PO DAILY Referrals / Follow Up: Aneta Alcantara DO [Primary Care Provider] - Within 1 Week London Garcia MD [Med Staff - Active Staff] - Within 2 Weeks Disposition Disposition (needs filled in before D/C Order can be placed): [facility] Facility Charges/Coding Visit Charges Inpatient E&M: 00198 Disch Hosp >30min
--- NOTE | 2023-10-25 12:37 | CASEMGMT ---
Social Work- Precert has been obtained.? Physician updated and pt is ready for discharge today.? Ddischarge orders to TCU via fax.? TSW met with pt and they are agreeable to discharge plan as stated above.?Pt daughter and bedside nurse notified of discharge . Disposition:TCU, skilled level of care under convalescent stay. CRISTY Rosenthal
[2023-10-25] MEDS: Ondansetron 4 MG/2 ML Vial IV (13:27)
[2023-10-25 13:30] VITALS: BP 102/84; PULSE 100; RESP 16; TEMP 36.6; O2SAT 93
--- NOTE | 2023-10-25 13:56 | NURSING ---
Report called to Deborah JOSHUA in tcu
== END 2023-10-25 14:15 | disposition skilled nursing facility (03) | DRG 522 ==
LOC: ED 16:38 → MS3 17:45
PROVIDERS: Specialist; Admitting Provider Internal Medicine; Emergency Provider Student in an Organized Health Care Education/Training Program; PCP Internal Medicine; Visit Provider Student in an Organized Health Care Education/Training Program
PROC: 0SRB04Z Replacement of Left Hip Joint with Ceramic on Polyethylene Synthetic Substitute, Open Approach (ICD-10-PCS; CPT 27284; principal; 2023-10-23 12:05)
DX: S72.092A Other fracture of head and neck of left femur, initial encounter for closed fracture (principal); I10 Essential (primary) hypertension; W01.0XXA Fall on same level from slipping, tripping and stumbling without subsequent striking against object, initial encounter; M16.12 Unilateral primary osteoarthritis, left hip; R94.4 Abnormal results of kidney function studies; Z79.899 Other long term (current) drug therapy
CPT/HCPCS: 36415; 71045; 72170; 73501; 73502; 73552; 76000; 80048; 85025; 85027; 86850; 86900; 86901; 88307; 88311; 93005; 94668; 97162; 97166; 97530; 97535; 99252; 99285; C1776; J7120; A4216; G0463; J2405

== ENCOUNTER 2023-10-25 14:28 | Inpatient (IN) | payer MEDICARE, SELFPAY ==
[2023-10-25 14:59] VITALS: BP 135/71; PULSE 100; RESP 16; TEMP 36.8; O2SAT 91; BMI 26.6
--- NOTE | 2023-10-25 16:10 | NURSING ---
Pt admits to rm 15. Pt denies pneumococcal vaccine this admission. Family member, Nicolle present at bedside. pt states Nicolle is POA, will bring in copies of POA and living will paperwork. No surgical wound dressing orders in chart. RN contacted Dr. Garcia's office, who states that they will callback tomorrow with instructions/orders.
--- NOTE | 2023-10-25 16:15 | NURSING ---
DR. Garcia's office contacted regarding post-op orders for hip. They report they will call back on 10/[address] Garcia is out of the office at this time.
[2023-10-25] MEDS: traMADol 50 MG Tablet PO (18:08)
[2023-10-25] MEDS: Acetaminophen 500 MG Tablet 1000 MG PO (18:08)
--- NOTE | 2023-10-25 19:16 | HP.PCM_ITS ---
HPI - General General Date of Admission: 10/25/23 Date of Service: 10/25/23 Chief Complaint: Here for rehabilitation. HPI Narrative 10/22/2023 LENA SAEZ, is a 82 Female who presents to [facility] ED with lower extremity injury. Fall, lost footing, hurt left hip, unable to walk. EMS gave Fentanyl, Zofran, no head injury, no loss of consciousness. X-ray showed left hip fracture. 10/22/2023 Admit [facility]. Orthopedics consult, NPO, pain control, PT/OT for left hip fracture. Adjust medications to control blood pressure. 10/23/2023 Dr. Garcia performed left total hip arthroplasty. 10/24/2023 Doing well, able to get up on side of bed. PT/OT, WBAT. Aspirin 81mg po bid x 4 weeks DVT prophylaxis (Stop date 11/23/2023) Pain control, bowel regimen. 10/24/2023 Pain controlled, vital signs stable. Tylenol, Oxycodone, morphine IV prn pain. PT/OT for debility. Resume Amlodipine, Benazepril, Hydralazine IV prn elevated blood pressure. 10/25/2023 Admit to TCU with debility, here for rehabilitation, strengthening, prior to discharge home with sister in law. [facility] Medical History (Updated 10/25/23 @ 19:[address] Alexander Whitten MD) BPPV (benign paroxysmal positional vertigo) Hyperlipidemia Vitamin B12 deficiency Vitamin D deficiency Debility Contact with and (suspected) exposure to other viral communicable diseases Home Medications ?Medication ?Instructions ?Recorded ?Last Taken ?Type amlodipine 5 mg tablet 5 mg PO DAILY BLOOD PRESSURE 06/29/22 10/24/23 21:45 History benazepril 10 mg tablet 10 mg PO DAILY BLOOD PRESSURE 06/29/22 10/21/23 History cholecalciferol (vitamin D3) 50 50 mcg PO DAILY SUPPLEMENT 06/29/22 10/21/23 History mcg (2,000 unit) capsule cyanocobalamin (vitamin B-12) 2,500 mcg PO DAILY SUPPLEMENT 06/29/22 10/21/23 History 2,500 mcg tablet ezetimibe 10 mg tablet 10 mg PO DAILY CHOLESTEROL 06/29/22 10/24/23 21:45 History meclizine 25 mg tablet 25 mg PO Q8H PRN DIZZINESS 06/29/22 10/21/23 History aspirin 81 mg chewable tablet 81 mg PO BID blood thinner #56 tabs 10/25/23 10/25/23 09:30 Rx oxycodone 5 mg tablet 5 mg PO Q4H PRN PRN Pain Score 10/25/23 10/25/23 06:15 Rx 4-10 4 days #24 tabs Allergy/AdvReac Type Severity Reaction Status Date / Time No Known Allergies Allergy Verified 10/22/23 16:16 Surgical History (Updated 10/25/23 @ 19:[address] Alexander Whitten MD) History of total left hip arthroplasty Social History (Updated 10/25/23 @ 19:[address] Alexander Whitten MD) household members: family and other details: Lives with [id number]. Patient , Patient's brother . Smoking Status: Never smoker alcohol intake: never substance use type: does not use ROS Constitutional Constitutional: Denies chills, fever(s) or weight gain ENT HEENT: Denies headache(s), nasal congestion or nasal discharge Cardiovascular Cardiovascular: Denies chest pain or palpitations Respiratory/Chest Respiratory/Chest: Denies cough, excessive phlegm production or shortness of breath with exertion Gastrointestinal Gastrointestinal: Denies abdominal pain, nausea or vomiting Genitourinary Genitourinary: Denies dysuria Musculoskeletal Musculoskeletal: Denies joint pain or joint swelling Integumentary Integumentary: Denies rash or wounds Neurologic Neurologic: Denies focal weakness, numbness or tingling Psychiatric Psychiatric: Denies anxiety, auditory hallucinations, depression, homicidal ideation or suicidal ideation Vital Signs Vital Signs Vital Signs: 10/25/23 14:59 10/25/23 14:59 Temperature 98.3 F Temperature Source Temporal Pulse Rate 100 Pulse Rhythm Regular Pulse Strength Normal (2+) Respiratory Rate 16 Respiratory Effort Normal Non-Labored Respiratory Depth Normal Respiratory Pattern Normal Blood Pressure 135/71 H Blood Pressure Mean 92 Blood Pressure Source Monitor Blood Pressure Position Sitting Blood Pressure Location Right Arm Pulse Ox 91 Oxygen Delivery Method Room Air Room Air Weight Weight: 68.402 kg Body Mass Index (BMI) 26.6 Physical Exam Const alert General Appearance: cooperative HEENT normocephalic Eyes PERRL and EOMs intact bilaterally Neck supple, no JVD and no carotid bruits Resp normal respiratory effort, normal air movement and clear to auscultation bilaterally Cardio regular rate and regular rhythm GI normal to inspection, nondistended, normoactive bowel sounds, non-tender and non-distended Extremity normal capillary refill General Extremity: Negative for edema Skin no rashes or lesions noted General Skin Exam: no breakdown Psych affect normal Appearance: appropriate Assessment & Plan Assessment/Plan (1) Debility: (2) Closed left hip fracture: (3) HTN (hypertension): (4) Vitamin D deficiency: (5) Vitamin B12 deficiency: (6) Hyperlipidemia: (7) BPPV (benign paroxysmal positional vertigo): PLAN: Plan 82 year old female with below past medical history hospitalized for left hip fracture, underwent left total hip replacement 10/23/[address] Garcia, admitted to TCU with debility, here for rehabilitation, strengthening, prior to discharge home with [id number]. * Debility - PT/OT. * Pain - Tylenol 1000mg q8, Tramadol 50mg q6 prn pain (1-3), Oxycodone 5mg q4 prn pain (4-10). * Bowel - senna/colace 2 tablets bid, Magnesium citrate 300ml daily prn, Dulcolax 10mg pr daily prn. * Adult immunization - Administer pneumonia vaccine, covid vaccine, flu vaccine as appropriate. * DVT prophylaxis - Aspirin 81mg po bid thru 11/23/2023. * Hypertension - Lisinopril 10mg daily, Amlodipine 5mg daily. * Indigestion - TUMS 500g tidcm prn. * Vitamin D deficiency - D3 50mcg daily. * Vitamin B12 deficiency - B12 2500mcg daily. * Hyperlipidemia - Zetia 10mg daily. * BPPV - Meclizine 25mg q8 prn.
[2023-10-25 20:00] VITALS: RESP 16; O2SAT 90
[2023-10-25] MEDS: 0.9% Saline Lock 10 ML Syringe IV (20:00)
[2023-10-25] MEDS: Aspirin 81 MG TAB.CHEW PO (20:00)
[2023-10-25] MEDS: Senna/Docusate Sodium 1 Tablet 2 TABLET PO (20:03)
[2023-10-26] MEDS: Acetaminophen 500 MG Tablet 1000 MG PO ×3 (06:17→21:04)
[2023-10-26 06:31] LABS: Absolute Lymphocyte Count 1.99 X10^3/uL (0.83-4.51); Absolute Neutrophil Count 7.7 X10^3/uL (2.0-7.7); Basophil# 0.07 X10^3/uL; Basophil% 0.6 % (0-1); Eosinophil# 0.36 X10^3/uL; Eosinophils% 3.2 % (0-5); Hematocrit 33.9 % (37-47); Lymphocyte # 1.99 X10^3/ul (0.83-4.51); Lymphocyte % 17.9 % (19-41); Mean Corp Hgb Conc 32.4 g/dL (32-36); Mean Corpuscular Hgb 29.4 pg (27.0-32.0); Mean Corpuscular Volume 90.6 fL (81-99); Mean Platelet Vol. 9.4 fl (6.2-12.0); Monocyte% 8.1 % (0-10); NRBC Flagged by Analyzer 0 % (0-5); Neutrophil % 69.4 % (47-70); Platelet Count 237 K/mm3 (150-450); RBC Distribution Width CV 12.6 % (11.6-14.6); RBC Distribution Width SD 41.6 fl (35.1-43.9); Red Blood Count 3.74 M/mm3 (4.2-5.4); White Blood Count 11.1 K/mm3 (4.4-11.0)
[2023-10-26 07:19] LABS: Anion Gap 4 (5-15); BUN 18 mg/dL (7-18); Calcium,Total 8.7 mg/dL (8.5-10.1); Chloride 104 mmol/L (98-107); Creatinine, Serum 0.72 mg/dL (0.55-1.02); EST Glomerular Filtration Rate 82 mL/min (>60); Est Glom Filt Rate - Afr Amer 99 mL/min (>60); Estimated Creatinine Clearance 48.59 ml/min; Glucose 118 mg/dL (74-106); Potassium 4.1 mmol/L (3.5-5.1); Sodium Level 137 mmol/L (136-145)
--- NOTE | 2023-10-26 08:23 | PHA.CONS_ITS ---
Documented by User: Nina Hester 10/26/23 08:40 TCU RX Drug Regimen Review Subjective/Objective Subjective/Objective: Subjective: TCU Admission. 82 YOF presented to the ER with lower extremity injury. Hospitalized for left hip fracture, underwent left total hip replacement 10/23/[address] Garcia. Admitted to TCU with debility for strengthening and rehabilitation. Objective: Allergies No Known Allergies Allergy (Verified 10/22/23 16:16) Current Medications Generic Name Dose Route Start Last Admin Trade Name Freq PRN Reason Stop Dose Admin Acetaminophen 1,000 mg 10/25/23 17:30 10/26/23 06:17 Acetaminophen 500 Mg Tablet PO 1,000 mg Q8 FABIO Administration Amlodipine Besylate 5 mg 10/26/23 10:00 Amlodipine 5 Mg Tablet PO DAILY [facility] Protocol Aspirin 81 mg 10/25/23 22:00 10/25/23 20:00 Aspirin 81 Mg Tab.Chew PO 11/23/23 23:59 81 mg BID FABIO Administration Bisacodyl 10 mg 10/25/23 14:59 Bisacodyl 10 Mg Suppository RC DAILY PRN PRN Constipation Calcium Carbonate 500 mg 10/25/23 17:15 Calcium Carbonate 500 Mg Tablet PO TIDCM PRN INDIGESTION Cholecalciferol 50 mcg 10/26/23 10:00 Cholecalciferol (Vit D3) 25 Mcg Tablet (1,000 Units) PO DAILY [facility] Cyanocobalamin 2,500 mcg 10/26/23 10:00 Cyanocobalamin 500 Mcg Tablet PO DAILY [facility] Ezetimibe 10 mg 10/26/23 10:00 Ezetimibe 10 Mg Tablet PO DAILY [facility] Lisinopril 10 mg 10/26/23 10:00 Lisinopril 10 Mg Tablet PO DAILY [facility] Magnesium Citrate 300 ml 10/25/23 14:59 Magnesium Citrate 300 Ml PO X1 PRN Constipation Meclizine HCl 25 mg 10/25/23 15:02 Meclizine Hcl 25 Mg Tablet PO Q8H PRN DIZZINESS Oxycodone HCl 5 mg 10/25/23 15:02 Oxycodone 5 Mg Tablet PO Q4H PRN PRN Pain Score 4-10 Senna/Docusate Sodium 2 tablet 10/25/23 22:00 10/25/23 20:03 Senna/Docusate Sodium 1 Tablet PO 2 tablet BID FABIO Administration Sodium Chloride 10 - 40 ml 10/25/23 15:28 10/25/23 20:00 0.9% Saline Lock 10 Ml Syringe IV 10 ml UD PRN Administration SALINE FLUSH Tramadol HCl 50 mg 10/25/23 17:16 10/25/23 18:08 Tramadol 50 Mg Tablet PO 50 mg Q6H PRN PRN Administration Pain Score 1-3 or Pre PT/OT Tuberculin PPD 0.1 ml 10/26/23 10:00 Tuberculin,Purif.Prot.Deriv. 50 Tu/Ml Vial ID 10/26/23 10:01 X1 ONE Tuberculin PPD 0.1 ml 11/02/23 10:00 Tuberculin,Purif.Prot.Deriv. 50 Tu/Ml Vial ID 11/02/23 10:01 X1 ONE Problem List BPPV (benign paroxysmal positional vertigo) (Acute) Hyperlipidemia (Acute) Vitamin B12 deficiency (Acute) Vitamin D deficiency (Acute) Debility (Acute) HTN (hypertension) (Chronic) Closed left hip fracture (Acute) Vital Signs Temp Pulse Resp BP Pulse Ox O2 Del Method O2 Flow Rate 98.3 F 100 16 135/71 H 90 Nasal Cannula 2 10/25/23 14:59 10/25/23 14:59 10/25/23 20:00 10/25/23 14:59 10/25/23 20:00 10/25/23 20:10 10/25/23 20:10 Oxygen Flow Rate (L/min) 2 Oxygen Delivery Method Nasal Cannula Weight: 68.402 kg Body Mass Index (BMI) 26.6 Sodium 137 mmol/L (136-145) 10/26/23 05:20 Potassium 4.1 mmol/L (3.5-5.1) 10/26/23 05:20 Chloride 104 mmol/L (98-107) 10/26/23 05:20 Carbon Dioxide 29.0 mmol/L (21.0-32.0) 10/26/23 05:20 Anion Gap 4 (5-15) L 10/26/23 05:20 BUN 18 mg/dL (7-18) 10/26/23 05:20 Creatinine 0.72 mg/dL (0.55-1.02) 10/26/23 05:20 Est GFR (MDRD) Af Amer 99 mL/min (>60) 10/26/23 05:20 Est GFR (MDRD) Non-Af 82 mL/min (>60) 10/26/23 05:20 BUN/Creatinine Ratio 25.0 RATIO (10-20) H 10/26/23 05:20 Glucose 118 mg/dL (74-106) H 10/26/23 05:20 Assessment/Plan: 1. Pain: acetaminophen 1000mg PO Q8, tramadol 50mg PO Q6H PRN pain 1-3 and oxycodone 5mg PO Q4H PRN pain 4-10. Resident has had 1 dose of tramadol for a pain score of 9 in the hip/thigh and no other PRN doses. Please continue to monitor for increased pain, PRN usage, constipation, respiratory depression and renal function. 2. Bowel: senna/docusate 2T PO BID, magnesium citrate 300mL PO daily PRN constipation and bisacodyl 10mg RC daily PRN constipation. Resident has not had any PRN doses so far. Last documented bowel movement was 10/24. Please continue to monitor for constipation and PRN usage. 3. DVT prophylaxis: aspirin 81mg PO BID thru 11/23/23. Please continue to monitor for S/S of bleeding/DVT and hemoglobin (last 11g/dL). 4.Hypertension: lisinopril 10mg PO daily and amlodipine 5mg PO daily. Please continue to monitor BP (last 135/71), potassium (last 4.1mmol/L), renal function, cough and swelling. 5. Indigestion: calcium carbonate 500mg PO TIDCM PRN indigestion. Resident has not had any PRN doses. Please continue to monitor for indigestion, PRN usage and calcium (last 8.7mg/dL). 6. Hyperlipidemia: ezetimibe 10mg PO daily. Please consider ordering a lipid panel as there is no level in the chart. Thanks. 7. BPPV: meclizine 25mg PO Q8H PRN dizziness. Resident has not had any doses. Please continue to monitor for dizziness and PRN usage. 8. Vitamin D/B12 deficiencies: cyanocobalamin 2500mcg PO daily and cholecalciferol 50mcg PO daily. Please consider ordering vitamin D and B12 level as there are no levels in the chart. Thanks. Assessment/Plan for indications treated with psychotropic medications: None Medical chart and medication regimen reviewed. The following medication irregularities or issues were identified: 1. Ezetimibe 10mg PO daily. Please consider ordering a lipid panel as there is no level in the chart. Thanks. 2. Cyanocobalamin 2500mcg PO daily and cholecalciferol 50mcg PO daily. Please consider ordering vitamin D and B12 level as there are no levels in the chart. Thanks. Date Date of Note:: 10/26/23 Documented by User: Dr. Alexander Whitten MD 10/26/23 08:49 TCU RX Drug Regimen Review Provider Comments Provider responsibility Provider Comments to Recommendations by Pharmacy: Agree
[2023-10-26 09:40] VITALS: BP 140/70; PULSE 91; RESP 16; TEMP 36.6; O2SAT 94
[2023-10-26] MEDS: Calcium Carbonate 500 MG Tablet PO ×2 (09:40→18:07)
[2023-10-26] MEDS: Cholecalciferol (VIT D3) 25 MCG TABLET (1,000 UNITS) 50 MCG PO (09:40)
[2023-10-26] MEDS: Aspirin 81 MG TAB.CHEW PO ×2 (09:40→21:03)
[2023-10-26] MEDS: Senna/Docusate Sodium 1 Tablet 2 TABLET PO ×2 (09:40→21:04)
[2023-10-26] MEDS: Cyanocobalamin 500 MCG Tablet 2500 MCG PO (09:40)
[2023-10-26] MEDS: amLODIPine 5 MG Tablet PO (09:40)
[2023-10-26] MEDS: Ezetimibe 10 MG Tablet PO (09:40)
[2023-10-26] MEDS: Lisinopril 10 MG Tablet PO (09:40)
--- NOTE | 2023-10-26 11:05 | NURSING ---
Call received from Dr. Garcia's office regarding surgical dressing. New order to remove dressing on day 13 if incision is well healed, no drainage.
--- NOTE | 2023-10-26 11:29 | CASEMGMT ---
Social Work SW met with patient to complete initial assessment. Introduced self and role. Verified contacts. Patient confirmed code status as full code. Pt's niece is providing copies of advanced directives. Educated to [facility] insurance with NRD 10/29 and continued stay is not guaranteed with each review. Pt is not anticipating a long LOS. Though, pt lives with CALI, pt is SILs primary caregiver. pt's goal is to return to PLOF at DC. SW will continue to follow for DC planning. Lia Rajan MSW LUBE ATTENDANT
[2023-10-26] MEDS: Tuberculin,Purif.prot.deriv. 50 TU/ML Vial 0.1 ML ID (11:45)
--- NOTE | 2023-10-26 12:48 | NURSING ---
Animal Keeper Note; Activity Asset: Lilly Murcia is independent in her choice of daily activities. At this time she prefers to do activities of her own in her room. Staff will remind her of weekly activities, get her independent activities such as newspaper, magazines, word puzzles and respect her right to say no. Family will visit and also bring her items she may want.
--- NOTE | 2023-10-26 14:52 | CHAPLAIN ---
Type of Pastoral Visit _x__ Initial Visit ___ Follow-up Visit ___ On-call Visit ___ General Patient Visit ___ Spiritual Assessment ___ Family Conference ___ Bereavement ___ Rapid Response ___ Code Blue ___ Other (describe below) Pastoral Care Referral From _x__ Patient ___ Family ___ Nurse ___ Physician ___ Title I Assistant ___ Director Strategic Account Management ___ Other (describe below) Sacrament/Intervention _x__ Active listening ___ Anointing ___ Episcopal ___ Bereavement ___ Communion ___ Ruthie exploration ___ ___ Life review _x__ Prayer ___ Reconciliation ___ Sacrament of Sick ___ Supportive presence ___ Wedding ___ Other (describe below) Pastoral Comments this patient was seen a couple of days ago in [facility] and has had her surgery completed now; pt is recovering in the TCU and asked about how things are going for her; pt states that surgery has gone well per doctor's report and that she is giving some hope for a recovery 'now in this unit; two neighbors/friends are chatting with the patient in the room; pt agrees that she is getting attention from other because I want to be around people and be helpful; pt asks for a prayer before the certified medical technician assistant leaves the room
--- NOTE | 2023-10-26 18:58 | PCA ---
STATISTICAL MODELER offered HS care and patient stated they would like to wait until morning and get a shower from therapy. Patient is ADl in AM
[2023-10-27 05:23] LABS: Cholesterol 126 mg/dL (200); High Density Lipoprotein 39 mg/dL; Triglycerides 108 mg/dL; Very Low Density Lipoprotein 22 mg/dL (5-40)
[2023-10-27 05:24] LABS: Vitamin B12 1807 pg/mL (211-911); Vitamin D,25 Hydroxy 39.1 ng/mL
[2023-10-27] MEDS: Acetaminophen 500 MG Tablet 1000 MG PO ×2 (06:27→21:22)
[2023-10-27] MEDS: Meclizine HCl 25 MG Tablet PO (06:55)
[2023-10-27 08:38] VITALS: O2SAT 96
[2023-10-27] MEDS: Calcium Carbonate 500 MG Tablet PO ×2 (08:53→21:25)
[2023-10-27] MEDS: Aspirin 81 MG TAB.CHEW PO ×2 (10:15→21:22)
[2023-10-27] MEDS: amLODIPine 5 MG Tablet PO (10:16)
[2023-10-27] MEDS: Senna/Docusate Sodium 1 Tablet 2 TABLET PO (10:16)
[2023-10-27] MEDS: Cholecalciferol (VIT D3) 25 MCG TABLET (1,000 UNITS) 50 MCG PO (10:17)
[2023-10-27] MEDS: Lisinopril 10 MG Tablet PO (10:17)
[2023-10-27] MEDS: Ezetimibe 10 MG Tablet PO (10:17)
[2023-10-27 13:53] VITALS: BP 143/73; PULSE 90; RESP 14; TEMP 36.8; O2SAT 93
[2023-10-27] MEDS: proCHLORPERazine 5 MG Tablet 10 MG PO ×2 (15:48→21:24)
--- NOTE | 2023-10-27 17:40 | NURSING ---
Patient Nauseated this AM. B12 elevated and Dr. Whitten made aware and b12 supplement decreased from 2500mcg to 1000mcg daily and NO for PRN Compazine. Patient made aware.
[2023-10-27] MEDS: 0.9% Saline Lock 10 ML Syringe IV (21:26)
[2023-10-28] MEDS: Acetaminophen 500 MG Tablet 1000 MG PO ×3 (05:20→21:18)
--- NOTE | 2023-10-28 05:29 | NURSING ---
Addendum entered by Bina Murray 10/28/23 05:41: this nurse looked on trays not taken to cafeteria, in trash and all over pt room. will have day shift call kitchen in am. Original Note: pt states last evening she took out her bottom partial after dinner. she did not think she set them on dinner tray but is unsure. they are currently missing.
[2023-10-28 08:04] VITALS: O2SAT 96
[2023-10-28] MEDS: Senna/Docusate Sodium 1 Tablet 2 TABLET PO (09:23)
[2023-10-28] MEDS: Cyanocobalamin 500 MCG Tablet 1000 MCG PO (09:23)
[2023-10-28] MEDS: Aspirin 81 MG TAB.CHEW PO ×2 (09:23→21:18)
[2023-10-28] MEDS: amLODIPine 5 MG Tablet PO (09:23)
[2023-10-28] MEDS: Cholecalciferol (VIT D3) 25 MCG TABLET (1,000 UNITS) 50 MCG PO (09:24)
[2023-10-28] MEDS: Lisinopril 10 MG Tablet PO (09:25)
[2023-10-28] MEDS: Ezetimibe 10 MG Tablet PO (09:25)
[2023-10-28 10:33] VITALS: BP 135/63; PULSE 79; RESP 16; TEMP 36.6
[2023-10-28] MEDS: Calcium Carbonate 500 MG Tablet PO (10:52)
[2023-10-28 13:49] VITALS: BP 129/68; PULSE 90; RESP 16; TEMP 36.6; O2SAT 95
[2023-10-29] MEDS: traMADol 50 MG Tablet PO ×2 (00:26→23:18)
[2023-10-29] MEDS: Acetaminophen 500 MG Tablet 1000 MG PO ×3 (05:53→21:12)
[2023-10-29] MEDS: amLODIPine 5 MG Tablet PO (08:21)
[2023-10-29] MEDS: Aspirin 81 MG TAB.CHEW PO ×2 (08:21→21:12)
[2023-10-29] MEDS: Cyanocobalamin 500 MCG Tablet 1000 MCG PO (08:22)
[2023-10-29] MEDS: Lisinopril 10 MG Tablet PO (08:22)
[2023-10-29] MEDS: Cholecalciferol (VIT D3) 25 MCG TABLET (1,000 UNITS) 50 MCG PO (08:22)
[2023-10-29] MEDS: Ezetimibe 10 MG Tablet PO (08:22)
[2023-10-29] MEDS: Meclizine HCl 25 MG Tablet PO (10:29)
[2023-10-29 16:00] VITALS: BP 123/86; PULSE 91; RESP 16; TEMP 36.4; O2SAT 93
[2023-10-29] MEDS: Calcium Carbonate 500 MG Tablet PO (16:43)
[2023-10-30] MEDS: Acetaminophen 500 MG Tablet 1000 MG PO ×2 (06:23→23:32)
[2023-10-30 07:37] VITALS: O2SAT 97
[2023-10-30 09:03] VITALS: BMI 26.1
[2023-10-30] MEDS: Ezetimibe 10 MG Tablet PO (10:10)
[2023-10-30] MEDS: Cyanocobalamin 500 MCG Tablet 1000 MCG PO (10:10)
[2023-10-30] MEDS: Lisinopril 10 MG Tablet PO (10:10)
[2023-10-30] MEDS: Aspirin 81 MG TAB.CHEW PO ×2 (10:10→19:58)
[2023-10-30] MEDS: Cholecalciferol (VIT D3) 25 MCG TABLET (1,000 UNITS) 50 MCG PO (10:10)
[2023-10-30] MEDS: amLODIPine 5 MG Tablet PO (10:10)
[2023-10-30] MEDS: Pantoprazole Sodium 40 MG Tablet PO (10:13)
[2023-10-30 10:16] VITALS: BP 140/73; PULSE 91
[2023-10-30 15:21] VITALS: BP 130/73; PULSE 85; RESP 16; TEMP 36.5; O2SAT 96
--- NOTE | 2023-10-30 17:11 | CASEMGMT ---
Social Work Insurance issued LCD 11/01, DC 11/02. SW phoned nizainab to update on insurance decision, explained appeal rights. Since POC meeting is scheduled for tomorrow, SW provided brief update from all disciplines on how pt was functioning. IDT reports physically, pt is functioning well, but still needs CGA-SBA for safety with potential losses of balance. Pt also has severe cognitive deficits. Pt is unable to continue managing finances and medications. Pt has lack of safety awareness, impulsive, max verbal cues for tasks, unable to maintain hip precautions or recall information, poor carryover. SW to follow up with nursing on nighttime needs, but pt will need care during awake hours to ensure safety, that cannot be provided by CALI, whom she lives with. Nasir expressed understanding, though surprised and does feel pt needs more time in TCU. Niece to speak with pt and likely file appeal. SW educated to options of hiring SHOE WORKER or AL, but all is OOP. Nasir stated she was starting to review pt's finances as there had been some red flags with pt's bills. Nasir will try to determine pt has funds to hire help at home or go to an AL. Nasir stated she is familiar with process as she went through this with her father prior. SW encouraged to process information tonight, speak with pt, and bring questions to POC meeting tomorrow. SW to assist with DC planning. Plan: PENDING APPEAL, DC 11/02, destination TBD If home, [facility] PT/OT/ST/SW No DME needs identified at this time YINKA Kingsley
[2023-10-30] MEDS: Senna/Docusate Sodium 1 Tablet 2 TABLET PO (19:58)
[2023-10-30 20:06] VITALS: PULSE 100; RESP 16; O2SAT 98
--- NOTE | 2023-10-30 21:11 | DS.PCM_ITS ---
Providers Date of Admission: 10/25/23 Primary Care Physician: Dr. Aneta Alcantara DO Reason For Visit: LEFT HIP FRACTURE Diagnosis Discharge Diagnosis (1) Debility: Status: Acute Code(s): R53.81 - Other malaise (2) Closed left hip fracture: Status: Acute Code(s): S72.002A - Fracture of unspecified part of neck of left femur, initial encounter for closed fracture (3) HTN (hypertension): Status: Chronic Code(s): I10 - Essential (primary) hypertension (4) Vitamin D deficiency: Status: Acute Code(s): E55.9 - Vitamin D deficiency, unspecified (5) Vitamin B12 deficiency: Status: Acute Code(s): E53.8 - Deficiency of other specified B group vitamins (6) Hyperlipidemia: Status: Acute Code(s): E78.5 - Hyperlipidemia, unspecified (7) BPPV (benign paroxysmal positional vertigo): Status: Acute Code(s): H81.10 - Benign paroxysmal vertigo, unspecified ear Plan 82 year old female with below past medical history hospitalized for left hip fracture, underwent left total hip replacement 10/23/[address] Garcia, admitted to TCU with debility, here for rehabilitation, strengthening, prior to discharge home with [id number]. * Debility - PT/OT. * Pain - Tylenol 1000mg q8, Tramadol 50mg q6 prn pain (1-3), Oxycodone 5mg q4 prn pain (4-10). * Bowel - senna/colace 2 tablets bid, Magnesium citrate 300ml daily prn, Dulcolax 10mg pr daily prn. * Adult immunization - Administer pneumonia vaccine, covid vaccine, flu vaccine as appropriate. * DVT prophylaxis - Aspirin 81mg po bid thru 11/23/2023. * Hypertension - Lisinopril 10mg daily, Amlodipine 5mg daily. * Indigestion - TUMS 500g tidcm prn. * Vitamin D deficiency - D3 50mcg daily. * Vitamin B12 deficiency - B12 2500mcg daily. * Hyperlipidemia - Zetia 10mg daily. * BPPV - Meclizine 25mg q8 prn. Medications at Discharge Home Medications amlodipine 5 mg tablet 5 mg PO DAILY BLOOD PRESSURE 06/29/22 benazepril 10 mg tablet 10 mg PO DAILY BLOOD PRESSURE 06/29/22 cholecalciferol (vitamin D3) 50 mcg (2,000 unit) capsule 50 mcg PO DAILY SUPPLEMENT 06/29/22 cyanocobalamin (vitamin B-12) 2,500 mcg tablet 2,500 mcg PO DAILY SUPPLEMENT 06/29/22 ezetimibe 10 mg tablet 10 mg PO DAILY CHOLESTEROL 06/29/22 meclizine 25 mg tablet 25 mg PO Q8H PRN DIZZINESS 06/29/22 aspirin 81 mg chewable tablet 81 mg PO BID 20 days #0 tabs 10/30/23 calcium carbonate 500 mg (2.5 x 200 mg calcium (500 mg)) PO TIDCM PRN Indigestion #0 tabs 10/30/23 pantoprazole 40 mg tablet,delayed release 40 mg PO DAILY 30 days #30 tabs 10/30/23 Hospital Course Operations total hip replacement (Left.) Procedures None Summary of Care Provided Minutes Spent on Discharge: 35 Hospital Course: 82 year old female with below past medical history hospitalized for left hip fracture, underwent left total hip replacement 10/23/[address] Garcia, admitted to TCU with debility, here for rehabilitation, strengthening, prior to discharge home with [id number]. Resident has cognitive deficits, unable to manage own finances. Discharge home with sister in law versus Assisted Living 11/03/2023, [facility] PT/OT/ST/SW. Physical Exam Const alert General Appearance: cooperative HEENT normocephalic Eyes PERRL and EOMs intact bilaterally Neck supple, no JVD and no carotid bruits Resp normal respiratory effort, normal air movement and clear to auscultation bilaterally Cardio regular rate and regular rhythm GI normal to inspection, nondistended, normoactive bowel sounds, non-tender and non-distended Extremity normal capillary refill General Extremity: Negative for edema Skin no rashes or lesions noted General Skin Exam: no breakdown Psych affect normal Appearance: appropriate Weight / BMI Weight Weight: 66.86 kg Body Mass Index (BMI) 26.1 ABG / Lab / Microbiology Data 10/26/23 05:20 10/26/23 05:20 Microbiology: Microbiology 10/25/23 22:30 Nasal Secretion SARS-CoV-2 Antigen (Rapid) - Final D/C Instructions Discharge Diet: No restrictions Discharge Activity: Return to Normal Activity, May Shower and Use Walker Weight Bearing Status: Weight bearing as tolerated Call your doctor if you observe: Fever of 101 or Higher, Inability to urinate, Inability to have a bowel movement, Shortness of breath, Dizziness, Fainting spells, Swelling in the ankles, Chest pain and Uncontrolled pain Additional Instructions: Discharge home with sister in law versus Assisted Living 11/03/2023, [facility] PT/OT/ST/SW. Please Follow Up With: London Garcia MD When: As scheduled. Meaningful Use Info Meaningful Use Meaningful Use Diagnoses (Choose all that apply): None applicable Ischemic Stroke Statin Dosing Therapy Reference: STATIN DOSE THERAPY REFERENCE: * Patients > 75 years receive moderate or high dose statin therapy. * Patients 75 years or YOUNGER should receive HIGH intensity statin dose unless contraindicated. You will be required to document reason for non-treatment if statin daily dose does not meet guidelines. HIGH DOSE STATIN THERAPY DAILY Atorvastatin > than or = to 40 mg Rosuvastatin > than or = to 20 mg Amlodipine + Atorvastatin > than or = to 2.5/40 mg Ezetimibe + Simvastatin 10/80 mg Simvastatin 80mg Discharge Plan Admission Admit Date/Time: 10/25/23 14:28 Primary Reason for Your Visit: Debility. Attending Provider: Alexander Whitten Chi Primary Care Provider: Aneta Alcantara Instructions Additional Instructions / Restrictions: Discharge home with sister in law versus Assisted Living 11/03/2023, [facility] PT/OT/ST/SW. Discharge Orders/Prescriptions Prescriptions: New pantoprazole 40 mg Tablet,Delayed Release (Dr/Ec) 40 mg PO DAILY 30 Days Qty: 30 0RF calcium carbonate 200 mg calcium (500 mg) Tablet,Chewable 500 mg PO TIDCM PRN (Reason: Indigestion) Qty: 0 0RF aspirin 81 mg Tablet,Chewable 81 mg PO BID 20 Days Qty: 0 0RF Continued meclizine 25 mg tablet 25 mg PO Q8H PRN (Reason: DIZZINESS ) Patient Comments: PT STATES THEY TAKE ONE TABLET BY MOUTH EVERY NIGHT ( OF 10/22/23) amlodipine 5 mg tablet 5 mg PO DAILY benazepril 10 mg tablet 10 mg PO DAILY ezetimibe 10 mg tablet 10 mg PO DAILY cholecalciferol (vitamin D3) 50 mcg (2,000 unit) capsule 50 mcg PO DAILY cyanocobalamin (vitamin B-12) 2,500 mcg tablet 2,500 mcg PO DAILY Discontinued aspirin 81 mg Tablet,Chewable 81 mg PO BID Qty: 56 0RF oxycodone 5 mg Tablet 5 mg PO Q4H PRN PRN (Reason: Pain Score 4-10) 4 Days Qty: 24 0RF Referrals / Follow Up: Aneta Alcantara DO [Primary Care Provider] - Disposition Disposition (needs filled in before D/C Order can be placed): Home Health Service
[2023-10-31] MEDS: proCHLORPERazine 5 MG Tablet 10 MG PO (05:56)
[2023-10-31 06:14] VITALS: BP 126/74; PULSE 80; RESP 16; TEMP 36.5; O2SAT 96
--- NOTE | 2023-10-31 07:37 | NURSING ---
Resident reports not feeling well this am. Had one episode of lg loose stools this am- none prior. Last formed stool was yesterday. Denies any vomiting but thinks she might. Positive for nausea. Did belch while this nurse was in resident's room. Bowel sounds slightly hyperactive x 4 quadrants. Abdomen soft and nontender. Denies any abdominal pain. Given Compazine per order, diet radha lilly w/ ice, fresh ice water, and saline crackers. Will hold am dose of Senna-S, had dose last hs. Declines consuming any foods that would cause these sxs. Has a half-eaten bar on her bedside table then resident thinks this may have caused some of her stomach upset. Encouraged diet as tolerated and notes she ordered scrambled eggs and wheat toast this am. Also reports some lightheadedness. Vitals obtained and recorded. Resident questioned if she had a dose of Meclizine last hs as she takes at dose at 1800 at home. Informed resident order reflects dosing every 8 hours as needed. She would like a dose scheduled for hs. Will report to oncoming nurse and continue to monitor.
--- NOTE | 2023-10-31 08:07 | NURSING ---
Verbal order received per Dr. Whitten on unit and read back for Meclizine 25 mg po daily at 1800 and july current PRN dose on MAY.
[2023-10-31] MEDS: amLODIPine 5 MG Tablet PO (09:06)
[2023-10-31] MEDS: Cholecalciferol (VIT D3) 25 MCG TABLET (1,000 UNITS) 50 MCG PO (09:06)
[2023-10-31] MEDS: Pantoprazole Sodium 40 MG Tablet PO (09:06)
[2023-10-31] MEDS: Cyanocobalamin 500 MCG Tablet 1000 MCG PO (09:06)
[2023-10-31] MEDS: Aspirin 81 MG TAB.CHEW PO ×2 (09:06→19:48)
[2023-10-31] MEDS: Ezetimibe 10 MG Tablet PO (09:06)
[2023-10-31] MEDS: Lisinopril 10 MG Tablet PO (09:06)
[2023-10-31] MEDS: Meclizine HCl 25 MG Tablet PO ×2 (09:06→18:00)
[2023-10-31 09:08] VITALS: BP 142/69; PULSE 95
--- NOTE | 2023-10-31 10:17 | CASEMGMT ---
Addendum entered by Lia Rajan 11/01/23 08:51: JUANPABLO phoned stella to inquire about skilled HHC agency. Nizainab stated she wanted to wait for the outcome of the appeal. JUANPABLO reminded nizainab the DC plan needs to still be in place in case the pt loses and given the DC date is the weekend. Nizainab expressed understanding and will review the list and notify this worker today. JUANPABLO will continue to follow. Addendum entered by Lia Rajan 10/31/23 12:08: JUANPABLO phoned [facility] to fax medical records request. Received fax. Sent to HIM via email to process request. Will await outcome. Original Note: Social Work IDT met with patient and niece for care plan meeting. Discussed patient's progress in PT/OT/ST/SN. Confirmed [employer] insurance issued DC for 11/02. Provided pt/family written communication on insurance process and copay coverage during stay. Inquired if nizainab has filed appeal and plan for DC. Nizainab did confirm and provided this worker with the case number. Stella stated she left a staff member a VM, but no other staff member received VM. Reiterated the need for pt to have supervision when awake d/t safety/CGA and cognitive overnight. Nizainab stated she will be able to provide that assistance. JUANPABLO also provided resources for nonskilled [employer] SERVER. Explained appeal rights and potential financial liability. Pt/niece agreed to skilled HHC. JUANPABLO provided list of skilled HHC agencies with quality and resource data via [employer]. No DME needs. JUANPABLO observed niece asking questions that have been answered by this worker or another staff member prior. Appeal YINKA Kingsley
[2023-10-31 15:41] VITALS: BP 118/63; PULSE 87; RESP 14; TEMP 36.8; O2SAT 97
[2023-10-31] MEDS: oxyCODONE 5 MG Tablet PO (21:31)
[2023-11-01] MEDS: Lisinopril 10 MG Tablet PO (09:33)
[2023-11-01] MEDS: amLODIPine 5 MG Tablet PO (09:33)
[2023-11-01] MEDS: Cholecalciferol (VIT D3) 25 MCG TABLET (1,000 UNITS) 50 MCG PO (09:33)
[2023-11-01] MEDS: Pantoprazole Sodium 40 MG Tablet PO (09:33)
[2023-11-01] MEDS: Aspirin 81 MG TAB.CHEW PO ×2 (09:33→21:35)
[2023-11-01] MEDS: Ezetimibe 10 MG Tablet PO (09:33)
[2023-11-01] MEDS: Cyanocobalamin 500 MCG Tablet 1000 MCG PO (09:34)
[2023-11-01 10:00] VITALS: PULSE 98; RESP 14; O2SAT 98
--- NOTE | 2023-11-01 11:39 | CASEMGMT ---
Addendum entered by Nichelle Valdez 11/01/23 11:58: As a part of MDS assessment. Original Note: Social Work- Pt BIMS: and PHQ9: 0/2 CRISTY Rosenthal
--- NOTE | 2023-11-01 11:41 | NURSING ---
PT AND FAMILY NOTIFIED OF PT ON UNIT TESTING POSITIVE FOR COVID
[2023-11-01 12:23] VITALS: O2SAT 98
[2023-11-01 16:00] VITALS: BP 114/66; PULSE 87; RESP 14; TEMP 36.8; O2SAT 97
--- NOTE | 2023-11-01 16:14 | CASEMGMT ---
Social Work- JUANPABLO called Vianney to relay that the decision to terminate services was upheld and pt lost her appeal; SW is seeking pt preference for HHC. JUANPABLO left a voicemail and also spoke with pt who reports that dtr will be visiting this evening. CRISTY Rosenthal
[2023-11-01] MEDS: Meclizine HCl 25 MG Tablet PO (18:32)
[2023-11-01] MEDS: Senna/Docusate Sodium 1 Tablet 2 TABLET PO (21:35)
[2023-11-01] MEDS: oxyCODONE 5 MG Tablet PO (21:35)
[2023-11-02 07:24] LABS: Absolute Lymphocyte Count 2.46 X10^3/uL (0.83-4.51); Absolute Neutrophil Count 8.5 X10^3/uL (2.0-7.7); Basophil# 0.07 X10^3/uL; Basophil% 0.6 % (0-1); Eosinophil# 0.19 X10^3/uL; Eosinophils% 1.6 % (0-5); Hematocrit 34.4 % (37-47); Hemoglobin 11.2 g/dL (12.0-15.0); Lymphocyte # 2.46 X10^3/ul (0.83-4.51); Lymphocyte % 20.1 % (19-41); Mean Corp Hgb Conc 32.6 g/dL (32-36); Mean Corpuscular Hgb 29.1 pg (27.0-32.0); Mean Corpuscular Volume 89.4 fL (81-99); Mean Platelet Vol. 8.3 fl (6.2-12.0); Monocyte# 0.81 X10^3/uL; Monocyte% 6.6 % (0-10); NRBC Flagged by Analyzer 0 % (0-5); Neutrophil # 8.53 X10^3/uL (2.7-7.7); Neutrophil % 69.6 % (47-70); Platelet Count 480 K/mm3 (150-450); RBC Distribution Width CV 12.6 % (11.6-14.6); RBC Distribution Width SD 40.8 fl (35.1-43.9); Red Blood Count 3.85 M/mm3 (4.2-5.4); White Blood Count 12.2 K/mm3 (4.4-11.0)
[2023-11-02] MEDS: amLODIPine 5 MG Tablet PO (07:44)
[2023-11-02] MEDS: Aspirin 81 MG TAB.CHEW PO ×2 (07:44→21:32)
[2023-11-02] MEDS: Senna/Docusate Sodium 1 Tablet 2 TABLET PO (07:44)
[2023-11-02] MEDS: Pantoprazole Sodium 40 MG Tablet PO (07:44)
[2023-11-02] MEDS: Cyanocobalamin 500 MCG Tablet 1000 MCG PO (07:45)
[2023-11-02] MEDS: Ezetimibe 10 MG Tablet PO (07:45)
[2023-11-02] MEDS: Cholecalciferol (VIT D3) 25 MCG TABLET (1,000 UNITS) 50 MCG PO (07:45)
[2023-11-02] MEDS: Lisinopril 10 MG Tablet PO (07:45)
[2023-11-02 07:53] LABS: Anion Gap 6 (5-15); BUN 13 mg/dL (7-18); BUN/Creat Ratio 15.2 RATIO (10-20); Calcium,Total 8.9 mg/dL (8.5-10.1); Chloride 106 mmol/L (98-107); Creatinine, Serum 0.85 mg/dL (0.55-1.02); EST Glomerular Filtration Rate 67 mL/min (>60); Est Glom Filt Rate - Afr Amer 81 mL/min (>60); Estimated Creatinine Clearance 45.25 ml/min; Glucose 117 mg/dL (74-106); Potassium 4.2 mmol/L (3.5-5.1); Sodium Level 140 mmol/L (136-145)
--- NOTE | 2023-11-02 08:55 | NURSING ---
Brush Sander Note; MDS for 11/01/2023 Complete
--- NOTE | 2023-11-02 09:18 | CASEMGMT ---
Social Work- Vianney, pt niece, returned SW call and reported that she had not looked at HHC list, as she doesn't know where things are at as she hasn't talked to anyone. JUANPABLO gently encouraged that Vianney was at care meeting Monday 10/30 and SW believes that pt states has remained the same the past 24-48 hours. Vianney states that she was hoping pt could stay until pt appointment Sunday with orthopedics. Vianney inquired about second appeal; JUANPABLO provided education that the second appeal has 14 days for a decision and family would be financially responsible @ current rate of $660/day if appeal was lost, however it is within pt rights to appeal. Vianney reports that she is still looking into finances and does not believe that is possible. Vianney states that they are putting a ramp on the home today and tomorrow and installing additional grab bars in the home today. Vianney states that they are looking at AL facilities on Sunday for pt as well. Vianney states that they do have family to assist pt during the day, however, do not have anyone to assist pt overnights. Vianney inquired into what the family should or shouldn't do. SW encouraged Vianney to talk with PT/OT/ST when she visits pt this morning. Vianney questioned HHC. SW provided education on HHC involvement/purpose. Vianney states that if pt needed HHC, the preference would be [facility]. Referral to be completed. CRISTY Rosenthal
[2023-11-02] MEDS: Tuberculin,Purif.prot.deriv. 50 TU/ML Vial 0.1 ML ID (10:45)
--- NOTE | 2023-11-02 14:42 | CASEMGMT ---
Social Work JUANPABLO phoned niece to confirm DC date 11/02 and referring to [facility]. Niece did confirm and explain currently the family will assist in providing the help pt needs at home, but the ultimate goal is AL. Niece to transport pt at 1700. JUANPABLO phoned referral to [facility] PT/OT/ST/SW Plan: DC home with assistance 11/02, [facility] PT/OT/ST/SW Lia Rajan, YINKA CRITICAL CARE SPECIALIST
[2023-11-02 16:00] VITALS: BP 130/75; PULSE 90; RESP 16; TEMP 36.1; O2SAT 96
[2023-11-02] MEDS: Meclizine HCl 25 MG Tablet PO (18:15)
[2023-11-02] MEDS: Acetaminophen 500 MG Tablet 1000 MG PO (21:32)
[2023-11-02] MEDS: oxyCODONE 5 MG Tablet PO (21:32)
[2023-11-03 08:49] VITALS: BP 122/66; PULSE 88; RESP 16; TEMP 36.6; O2SAT 95
[2023-11-03] MEDS: amLODIPine 5 MG Tablet PO (08:53)
[2023-11-03] MEDS: Aspirin 81 MG TAB.CHEW PO ×2 (08:53→17:09)
[2023-11-03] MEDS: Pantoprazole Sodium 40 MG Tablet PO (08:54)
[2023-11-03] MEDS: Cholecalciferol (VIT D3) 25 MCG TABLET (1,000 UNITS) 50 MCG PO (08:54)
[2023-11-03] MEDS: Lisinopril 10 MG Tablet PO (08:54)
[2023-11-03] MEDS: Cyanocobalamin 500 MCG Tablet 1000 MCG PO (08:55)
[2023-11-03] MEDS: Ezetimibe 10 MG Tablet PO (08:55)
[2023-11-03] MEDS: Acetaminophen 500 MG Tablet 1000 MG PO (14:53)
[2023-11-03] MEDS: Meclizine HCl 25 MG Tablet PO (17:08)
--- NOTE | 2023-11-03 17:11 | NURSING ---
2200 dose of ASA given. Patient and daughter did not have available at home.
--- NOTE | 2023-11-06 10:03 | MDS.RN ---
Information for the MDS was obtained from review of the clinical record, interview of resident, staff, and direct observation of resident?s care.
== END 2023-11-03 17:14 | disposition home health service (06) | DRG 561 ==
PROVIDERS: Admitting Provider Family Medicine Geriatric Medicine; PCP Internal Medicine; Referring Provider Family Medicine Geriatric Medicine; Visit Provider Family Medicine Geriatric Medicine
DX: S72.002D Fracture of unspecified part of neck of left femur, subsequent encounter for closed fracture with routine healing (principal); E53.8 Deficiency of other specified B group vitamins; I10 Essential (primary) hypertension; E55.9 Vitamin D deficiency, unspecified; E78.5 Hyperlipidemia, unspecified; K21.9 Gastro-esophageal reflux disease without esophagitis; W19.XXXD Unspecified fall, subsequent encounter; H81.10 Benign paroxysmal vertigo, unspecified ear; Z79.899 Other long term (current) drug therapy; Z79.82 Long term (current) use of aspirin; Z96.642 Presence of left artificial hip joint
CPT/HCPCS: 36415; 80048; 80061; 82306; 82607; 85025; 87426; 87811; 92523; 97110; 97116; 97129; 97130; 97162; 97166; 97530; 97535; 97802; A4216

== ENCOUNTER → 2023-11-21 | Outpatient (CLI) | payer MEDICARE, SELFPAY ==
--- NOTE | 2023-11-21 09:20 | US_ITS ---
STUDY: ABDOMINAL ULTRASOUND - RIGHT UPPER QUADRANT REASON FOR VISIT: Female, 83 years old RUQ US (RIGHT UPPER QUADRANT ULTRASOUND) -- Belching TECHNIQUE: Ultrasound evaluation of the right upper quadrant was performed with real-time and static de jesus-scale imaging. TECHNICAL QUALITY: Adequate. COMPARISON: None. FINDINGS: Liver: The liver measures 14.6 cm. There is normal echogenicity of the liver. The bile ducts are within normal limits. There is hepatic color flow. The direction of portal flow is hepatopetal. There is no demonstrated mass lesion. Gallbladder: Normal distended gallbladder. The gallbladder wall measures 2.4 mm. There is a negative sonographic Adler''s sign. There is no pericholecystic fluid. There are no gallstones. Small amount of sludge is seen in the gallbladder lumen. Common Bile Duct (C.B.D.): The common bile duct measures 7 mm. Pancreas: Normal size of the head, body and tail of the pancreas. There is increased echogenicity of the pancreas. There is no demonstrated pancreatic mass or cyst. Right Kidney: Normal size of the right kidney. The right kidney measures 9.7 cm x 5.2 cm x 4.8 cm. Normal renal cortex. The right cortex measures 1 cm. There is no demonstrated renal mass or cyst. There is no right hydronephrosis. US/Abdomen Limited IMPRESSION: Small amount of sludge is seen within the gallbladder lumen. Electronically Signed: Ayan Jimenez MD at 10:26 EDT ,
== END | disposition home or self-care (01) ==
LOC: US 09:17
PROVIDERS: PCP Internal Medicine; Referring Provider Internal Medicine; Visit Provider Internal Medicine
DX: R14.2 Eructation (principal)
CPT/HCPCS: 76705

== ENCOUNTER → 2024-03-12 | Outpatient (CLI) | payer MEDICARE, SELFPAY ==
--- NOTE | 2024-03-12 15:47 | CT_ITS ---
STUDY: CT BRAIN WITHOUT CONTRAST REASON FOR EXAM: Female, 83 years old. cognitive change RADIATION DOSAGE (If Supplied By Facility): CTDIvol = ( 44.99 ) mGy, DLP = ( 745.49 ) mGycm TECHNIQUE: Transaxial CT imaging of the brain was performed without administration of intravenous contrast material. Individualized dose optimization techniques were used for this CT. COMPARISON: No relevant priors. FINDINGS: Normal soft tissue structures. Normal calvarium. Prominent ventricles and extra-axial spaces with mild atrophy. Mild white matter microangiopathic ischemic changes of the cerebral hemispheres. Normal basal ganglia and thalami. Normal brainstem. Normal cerebellum. There is no intracranial hemorrhage. There are no findings of an acute ischemic infarction. Normal visualized paranasal sinuses. CT/Brain/Head without Contrast IMPRESSION: Age-related changes. No acute intracranial pathology of the brain. Electronically Signed: Jerome Sheriff DO at 23:57 EST ,
== END | disposition home or self-care (01) ==
LOC: CT 15:45
PROVIDERS: PCP Internal Medicine; Referring Provider Internal Medicine; Visit Provider Internal Medicine
DX: R41.89 Other symptoms and signs involving cognitive functions and awareness (principal)
CPT/HCPCS: 70450

== ENCOUNTER 2024-07-10 10:03 | Inpatient (IN) | payer MEDICARE, SELFPAY ==
[2024-07-10] VITALS (7 sets, daily range): BP systolic 118–165; BP diastolic 59–93; PULSE 62–78; RESP 16–18; TEMP 35.9–37.1; O2SAT 93–98; BMI 25.1
--- NOTE | 2024-07-10 10:15 | EX.ED.GENINJ ---
HPI History of Present Illness Chief Complaint: Fall Detail of Chief Complaint: Left leg/hip pain status post fall Informant: patient and EMS Onset/Context/Timing Onset: Today and Hours (Approximate 1 hour prior to presentation) Mechanism/Context: Fall Location of pain/injuries: Left hip and Left thigh Quality of Pain: - (Patient denies everything.) Location: She fell at home. Current Severity: Gone Maximum Severity: Moderate Worsened by: Patient states she does not know Relieved by: Not applicable because she is presently complaining no pain Associated Symptoms Associated Symptoms: Positive for Inability to ambulate Length of loss of consciousness: Per family member no Narrative Narrative: Patient is an 83-year-old woman. She is a poor informant due to dementia. Per family and EMS she complained of left hip leg pain. She apparently was not able to get up from the floor. Prior similar symptoms: No Recent Illness/Hospitalization: No [facility] Medical History Unilateral primary osteoarthritis, left hip BPPV (benign paroxysmal positional vertigo) Hyperlipidemia Vitamin B12 deficiency Vitamin D deficiency Debility Contact with and (suspected) exposure to other viral communicable diseases Home Medications ?Medication ?Instructions ?Recorded ?Last Taken ?Type amlodipine 5 mg tablet 5 mg PO DAILY BLOOD PRESSURE 06/29/22 10/24/23 21:45 History benazepril 10 mg tablet 10 mg PO DAILY BLOOD PRESSURE 06/29/22 10/21/23 History cholecalciferol (vitamin D3) 50 50 mcg PO DAILY SUPPLEMENT 06/29/22 10/21/23 History mcg (2,000 unit) capsule cyanocobalamin (vitamin B-12) 2,500 mcg PO DAILY SUPPLEMENT 06/29/22 10/21/23 History 2,500 mcg tablet ezetimibe 10 mg tablet 10 mg PO DAILY CHOLESTEROL 06/29/22 10/24/23 21:45 History meclizine 25 mg tablet 25 mg PO Q8H PRN DIZZINESS 06/29/22 10/21/23 History aspirin 81 mg chewable tablet 81 mg PO BID 20 days #0 tabs 10/30/23 Unknown Rx calcium carbonate 500 mg (2.5 x 200 mg calcium (500 10/30/23 Unknown Rx mg)) PO TIDCM PRN Indigestion #0 tabs pantoprazole 40 mg tablet,delayed 40 mg PO DAILY 30 days #30 tabs 10/30/23 Unknown Rx release Allergy/AdvReac Type Severity Reaction Status Date / Time No Known Allergies Allergy Verified 10/22/23 16:16 Surgical History History of total left hip arthroplasty Social History household members: family and other details: Lives with [id number]. Patient , Patient's brother . Smoking Status: Never smoker alcohol intake: never substance use type: does not use ROS ROS ED Review of Systems ROS Unobtainable: due to mental status EXAM Physical Exam Const Vital Signs: 07/10/24 10:05 Temperature 96.7 F L Temperature Source Oral Pulse Rate 65 Respiratory Rate 16 Blood Pressure 142/68 H Blood Pressure Mean 92 Pulse Ox 94 Oxygen Delivery Method Room Air Positive well nourished and well developed Constitutional Narrative: Vital signs are marked for an elevated blood pressure of 142/68 otherwise unremarkable. General Appearance ED: well developed and NAD HEENT Denies TM's clear HEENT Narrative: There is no tenderness. atraumatic; Negative for tenderness Nose: Negative for septum abnormal Tympanic Membrane ED: Negative for TM's clear Eyes PERRL and EOMs intact bilaterally General Eye ED: Yes other Other Details: There is no subconjunctival hemorrhage. Neck full ROM Neck Narrative: There is no pain to palpation posterior neck along the midline. General: Negative for tenderness Chest Wall inspection of chest normal and palpation of chest normal Resp normal respiratory effort and clear to auscultation bilaterally Cardio regular rhythm, S1 normal heart sound, S2 normal heart sound and no murmurs Back/Spine no thoracic nor lumbar tenderness Extremity normal to inspection Extremity Narrative: Patient is able to lift her right and left lower extremity off the bed. She has pain to palpation near the left inguinal area and pelvis region. She also complained of pain inferior the greater trochanteric area. General Extremety ED: Yes tenderness; Negative for edema General Extremity: Negative for edema Neuro No oriented x3, CN's II-XII intact bilaterally and moves all extremities Neuro Narrative: Patient has a GCS of 14. This is patient's baseline. Tram Coma Scale: document GCS findings Spontaneous Obeys Commands Confused 14 Sensorium / Orientation: alert Psych mental status grossly normal and thought process normal Skin no rashes or lesions noted, no wounds, skin turgor normal and no jaundice MDM MDM MDM Narrative Medical decision making narrative: Because history is limited patient has painful patient pelvis and hip region will obtain x-ray of the left hip. If there is no abnormality we will have patient ambulate. History & Record Review Additional record(s) reviewed:: Prior inpatient record (Reviewing prior records indicates patient had a left hip fracture October 2023. Discharge summary by Dr. Malik was reviewed) and Prior outpatient record (Seen October 2019 for by PCP for benign paroxysmal positional vertigo.) Radiography Chest X-Ray - ED: Read by ED Physician (Three-view x-ray of the left hip reveals evidence of a total left hip arthroplasty. There is no fracture of the pelvis. There is no evidence of fracture of the proximal portion of the femur and the prosthetic stem appears normal with no evidence of loosening.) and - (This is internally reviewed interpreted by me at 1044.) Diagnostic Testing: Clinical Impression(s) from Imaging Studies Hip/Pelvis X-Ray 07/10/24 10:20 IMPRESSION: No acute fracture or dislocation. Left CONSTANCE appears intact. Reading Location: [facility] Treatment and Re-Evaluation Narrative: Patient was able ambulate with a walker. She normally uses a walker. Her gait was shuffled, which is normal for her per family. Discharge Plan Triage Chief Complaint: Fall ED Provider: Olman Berger Dx/Rx/DC Orders Clinical Impression: Injury due to fall, HTN (hypertension), Debility, Hyperlipidemia, Contusion of hip, left, Dementia Instructions: ED Contusion, Lower Extremity Prescriptions: No Action meclizine 25 mg tablet 25 mg PO Q8H PRN (Reason: DIZZINESS ) Patient Comments: PT STATES THEY TAKE ONE TABLET BY MOUTH EVERY NIGHT ( OF 10/22/23) amlodipine 5 mg tablet 5 mg PO DAILY benazepril 10 mg tablet 10 mg PO DAILY ezetimibe 10 mg tablet 10 mg PO DAILY cholecalciferol (vitamin D3) 50 mcg (2,000 unit) capsule 50 mcg PO DAILY cyanocobalamin (vitamin B-12) 2,500 mcg tablet 2,500 mcg PO DAILY pantoprazole 40 mg Tablet,Delayed Release (Dr/Ec) 40 mg PO DAILY 30 Days Qty: 30 0RF calcium carbonate 200 mg calcium (500 mg) Tablet,Chewable 500 mg PO TIDCM PRN (Reason: Indigestion) Qty: 0 0RF aspirin 81 mg Tablet,Chewable 81 mg PO BID 20 Days Qty: 0 0RF Primary Care Provider: Aneta Alcantara Referrals: Aneta Alcantara DO [Primary Care Provider] - As Needed Activity Restrictions/Additional Instructions: Ice to left hip area 4-6 times a day Tylenol for pain Print Language: Tamazight Disposition Disposition: Home, Self Care
--- NOTE | 2024-07-10 10:20 | RAD_ITS ---
PROCEDURE: HIP, UNI W/ PELVIS 2-3 VIEWS 07/10/2024 REASON FOR EXAM: INJURY/PAIN TECHNIQUE: 3 x-rays of the pelvis and left hip COMPARISON: None FINDINGS: Bones: No fracture or dislocation. The pelvic ring intact. Pubic symphysis and sacroiliac joints appear maintained. Joints: Total hip replacement in satisfactory alignment. Soft tissues: No gas or unexpected radiopaque foreign body RAD/HIP, UNI W/ Pelvis 2-3 Views IMPRESSION: No acute fracture or dislocation. Left CONSTANCE appears intact. Reading Location: [facility]
--- NOTE | 2024-07-10 13:57 | PCM.HP.STD ---
HPI - General General Date of Admission: 07/10/24 Date of Service: 07/10/24 Chief Complaint: Fall, debility. HPI Narrative The patient is an 83 y/o F w/ PMHx: BPPV, HTN, HLD, OA, Dementia unclear type with unclear behavioral disturbance history, GERD, chronic gait disturbance with usage chronically of a walker with shuffled gait baseline who presents to the [facility] ED on 07/10/2024 with history of debility and weakness, recent mechanical fall with left hip pain occurring earlier in the day on day of presentation at home with unfortunately unclear motive injury secondary to underlying dementia prompting family to bring her in for evaluation. Patient in the ED was eventually able to get up and ambulate with a walker however family notes concerns about taking her home because of inability of her geriatric to care for her. She notes that her left hip discomfort is improved and currently 1 out of 10 in severity, very mild, dull ache however she states that when it first occurred and she fell her pain was 7-8 out of 10 and more sharp although waxed and waned. Her niece who is present states that she does seem to be more unstable in the shuffling gait was worse in the ED. Her mentation baseline is normal to herself, her family, often can discuss potentially where she is at but for example in the ED she did not get the right president or year but did get the right month and her family states this seems about baseline. They do note that sometimes it is worse and sometimes its better. Workup in the ED included T96.7, heart rate 65, BP 122/71, respiratory rate 18, 98% on room air, plain film of the left hip and pelvis with no acute fracture or dislocation, left CONSTANCE intact. [facility] Medical History HTN (hypertension) Unilateral primary osteoarthritis, left hip BPPV (benign paroxysmal positional vertigo) Hyperlipidemia Vitamin B12 deficiency Vitamin D deficiency Home Medications ?Medication ?Instructions ?Recorded ?Last Taken ?Type amlodipine 5 mg tablet 5 mg PO QPM BLOOD PRESSURE 06/29/22 07/09/24 History benazepril 10 mg tablet 10 mg PO QPM BLOOD PRESSURE 06/29/22 07/09/24 History cholecalciferol (vitamin D3) 50 50 mcg PO DAILY SUPPLEMENT 06/29/22 10/21/23 History mcg (2,000 unit) capsule cyanocobalamin (vitamin B-12) 2,500 mcg PO DAILY SUPPLEMENT 06/29/22 10/21/23 History 2,500 mcg tablet ezetimibe 10 mg tablet 10 mg PO QPM CHOLESTEROL 06/29/22 10/24/23 21:45 History meclizine 25 mg tablet 25 mg PO Q8H PRN DIZZINESS 06/29/22 07/09/24 History aspirin 81 mg chewable tablet 81 mg PO QPM 07/10/24 07/09/24 History sertraline 50 mg tablet 25 mg PO QPM 07/10/24 07/09/24 History Allergy/AdvReac Type Severity Reaction Status Date / Time No Known Allergies Allergy Verified 10/22/23 16:16 Family History (Updated 07/10/24 @ 14:[address] Rosalia Scales MD) Mother Kidney disease Father Heart disease Hypertension Heart failure Surgical History History of total left hip arthroplasty Social History (Updated 07/10/24 @ 13:[address] Rosalia Scales MD) household members: spouse Smoking Status: Never smoker alcohol intake: never substance use type: does not use ROS ROS Narrative Admission Review of Systems: CONSTITUTIONAL: No weight loss, fever, chills, weakness or fatigue. HEENT: Eyes: No visual loss, blurred vision, double vision or yellow sclerae. Ears, Nose, Throat: No hearing loss, sneezing, congestion, runny nose or sore throat. SKIN: No rash or itching, lesions, wounds except + occasional stage ecchymoses, abrasions. CARDIOVASCULAR: No chest pain, chest pressure or chest discomfort, palpitations, edema, orthopnea, syncopal events. RESPIRATORY: No shortness of breath, cough or sputum, wheezing, hemoptysis. GASTROINTESTINAL: No anorexia, nausea, vomiting or diarrhea, abdominal pain, melena, BRBPR. GENITOURINARY: No dysuria, frequency, urgency or retention. NEUROLOGICAL: + Underlying dementia of unclear extent with unclear behavior disturbance history, intermittent memory issues per family, BPPV history. No headache, dizziness, syncope, paralysis, ataxia, numbness or tingling in the extremities, focal weakness, change in bowel or bladder control, seizure. MUSCULOSKELETAL: + muscle, back pain, joint pain or stiffness. HEMATOLOGIC: No anemia. + Easy bleeding/bruising. LYMPHATICS: No enlarged nodes. No history of splenectomy. PSYCHIATRIC: No history of depression or anxiety. ENDOCRINOLOGIC: No reports of sweating, cold or heat intolerance. No polyuria or polydipsia. ALLERGIES: No history of asthma, hives, eczema or rhinitis. Vital Signs Vital Signs Vital Signs: 07/10/24 10:03 07/10/24 10:03 07/10/24 10:05 Temperature 96.7 F L Temperature Source Oral Pulse Rate 64 65 Respiratory Rate 18 16 Respiratory Effort Normal Blood Pressure 122/71 H 142/68 H Blood Pressure Mean 88 92 Pulse Ox 98 94 Oxygen Delivery Method Room Air Room Air 07/10/24 12:03 Temperature Temperature Source Pulse Rate 62 Respiratory Rate 18 Respiratory Effort Blood Pressure 128/68 H Blood Pressure Mean 88 Pulse Ox 98 Oxygen Delivery Method Room Air Weight Weight: 141 lb 15.643 oz Body Mass Index (BMI) 25.1 Physical Exam Narrative Physical Examination: General: Awake, alert, oriented to self, place, niece was present, month but gives incorrect president and incorrect year, remains cooperative, seated upright in ED bed, currently notes hip pain is improved, rating it 1 out of 10, dull ache. Skin: Normal color, normal turgor, no icterus, no cyanosis Except occasional stage ecchymoses, abrasion. HEENT: AT/NC, EOMI, PERRLA, MMM, no carotid bruits or JVD noted. Lungs: Mildly diminished, greater bases, poor effort, no rales, ronchi or wheezing. Heart: Regular rate and rhythm; no gallop, rub audible. Abdomen: Soft, NTTP, ND, mildly hyperactive BS, no appreciated HSM. Extremities: No cyanosis, no clubbing, bilateral distal ankle not markedly pitting edema, currently notes left hip discomfort improved, pain primarily to the inguinal/pelvic region with palpation, able to lift bilateral lower extremities. Neurological: Patient awake, alert, oriented as noted, cognitive function baseline intact with baseline underlying cognitive impairment with underlying dementia; pupils equally reactive to light and accommodation, cranial nerves gross normal, moving all 4 extremities, no focal deficits, strength moderately to severely globally decreased secondary to recent mechanical fall with left hip pain. Psychiatric: Affect appears interactive, normal, no acute evidence of depressive or anxiety feelings. Results Lab / Micro Data 07/10/24 14:19 07/10/24 14:19 Imaging Radiology Impression Hip/Pelvis X-Ray 07/10/24 10:20 IMPRESSION: No acute fracture or dislocation. Left CONSTANCE appears intact. Reading Location: [facility] Assessment & Plan Assessment/Plan (1) Contusion of hip, left: PLAN: Plan The patient is an 83 y/o F w/ PMHx: BPPV, HTN, HLD, OA, Dementia unclear type with unclear behavioral disturbance history, GERD, chronic gait disturbance with usage chronically of a walker with shuffled gait baseline who presents to the [facility] ED on 07/10/2024 with history of debility and weakness, recent mechanical fall with left hip pain occurring earlier in the day on day of presentation at home with unfortunately unclear motive injury secondary to underlying dementia prompting family to bring her in for evaluation. #1. Mechanical fall with left hip pain, debility, adult failure to thrive with high risk of repeat fall if returns to current living setting, complicated by #2: Will admit to medical surgical floor, maintain on fall precautions, will initiate local topical agents to the left hip, will obtain admission CBC, BMP, PT/OT/case medicine consulted for discharge planning. #2. Dementia, unclear extent, unclear type with unclear behavioral disturbance history: Complicates presentation, maintain on fall and aspiration precautions, PT/OT/case management consulted for discharge planning. #3. Hypertension: Continue home regimen including benazepril, amlodipine with hold parameters as needed, PRN hydralazine. #4. Hyperlipidemia: Will continue patient home ezetimibe regimen. #5. M?ni?re's disease: Patient with benign positional vertigo, M?ni?re's disease, uses meclizine only as needed, will monitor for need. #6. GERD: Will continue patient on PPI. #7. DVT prophylaxis: Lovenox. #8. CODE status: Patient OSMEL is her niece who is present and living will is currently in place. Discussed CODE status at length including difference between FULL code, DNR-CCA and DNR-CC status. Following discussions about the differences in these status, requested Full Code status. Charges/Coding Visit Charges Inpatient E&M: 71244 Init Hosp L2
[2024-07-10 14:38] LABS: Absolute Lymphocyte Count 0.97 X10^3/uL (0.83-4.51); Absolute Neutrophil Count 11.9 X10^3/uL (2.0-7.7); Basophil# 0.07 X10^3/uL; Basophil% 0.5 % (0-1); Eosinophil# 0.03 X10^3/uL; Eosinophils% 0.2 % (0-5); Hematocrit 39.6 % (37-47); Hemoglobin 13.8 g/dL (12.0-15.0); Lymphocyte # 0.97 X10^3/ul (0.83-4.51); Lymphocyte % 7.3 % (19-41); Mean Corp Hgb Conc 34.8 g/dL (32-36); Mean Corpuscular Hgb 29.8 pg (27.0-32.0); Mean Corpuscular Volume 85.5 fL (81-99); Mean Platelet Vol. 9.5 fl (6.2-12.0); Monocyte# 0.34 X10^3/uL; Monocyte% 2.6 % (0-10); NRBC Flagged by Analyzer 0 % (0-5); Neutrophil # 11.85 X10^3/uL (2.7-7.7); Neutrophil % 88.9 % (47-70); Platelet Count 314 K/mm3 (150-450); RBC Distribution Width CV 11.6 % (11.6-14.6); RBC Distribution Width SD 35.8 fl (35.1-43.9); Red Blood Count 4.63 M/mm3 (4.2-5.4); White Blood Count 13.3 K/mm3 (4.4-11.0)
--- NOTE | 2024-07-10 14:43 | CM.ED ---
Social work Reason for referral: family concerns with taking patient home Referral source: kitchen chef Alyssa This SW was approached by kitchen chef Alyssa who verbalized family concerns with taking patient home. Patient was reportedly up for discharge and had ambulated when patient's niece, Vianney, and patient's sister in law, Nicole, stated feeling uncomfortable taking patient home. Patient reportedly has dementia and lives with Nicole who is also reportedly in need of additional help. This SW entered patient's room, introducing self and role at [facility]. Vianney expressed concerns with taking patient home due to patient falling and Nicole being unable to help pick patient back up when patient falls. Vianney stated patient was able to ambulate with walker, but Vianney stated it appeared worse than what Vianney has seen from patient in the recent past. Vianney was tearful as Vianney expressed the difficulty Nicole (Vianney's mother) has been having trying to watch over patient the last year (when patient was diagnosed with dementia). Patient and Nicole have reportedly lived together for the last 8 years and patient reportedly does not use patient's walker. Patient reported using the walker 3-4 times per day and reported not using the walker when going to the bathroom; Vianney was standing behind patient and shaking Vianney's head 'no.' Vianney states checking in on patient and Nicole often and helps to provide meals. Nicole stated having a retired RN as a neighbor who checks in daily. Nicole stated patient has had a decline in eating over the last two weeks; patient's PCP is reportedly aware of this and provided Zoloft for patient's possible depression. Patient's home is reportedly handicap accessible, but there were still safety concerns with taking patient home. SW explained options to patient and patient's family. SW retrieved approximate private pay costs for various custodial facilities and Vianney stated private pay would not be possible, even if patient's extended family all chipped in. SW provided education on the potential of patient applying for Medicaid and Vianney was provided resources. Patient stated belief that patient could improve strength and not fall if patient received therapy. Patient was encouraged to use the walker at all times by this SW. Patient did appear confused during conversation (one example: patient expressed the walker in the room belonged to patient, but Vianney stated it belonged to [facility]). SW spoke with Dr. Berger who agreed to speak with hospitalist to try to admit patient in observation status due to safety concerns at home. Vianney reports to be financial and HCPOA; paperwork requested to be brought in. Nadege Murphy, DIRECTOR OF CLAIMS, HEAT AND FROST INSULATOR HELPER
[2024-07-10 15:00] LABS: Anion Gap 13 (5-15); BUN 15 mg/dL (4-19); BUN/Creat Ratio 10.9 RATIO (10-20); Calcium,Total 10.1 mg/dL (7.6-11.0); Carbon Dioxide 23.9 mmol/L (21.0-32.0); Chloride 103 mmol/L (98-108); Creatinine, Serum 1.38 mg/dL (0.70-1.20); EST Glomerular Filtration Rate 38 (>60); Estimated Creatinine Clearance 26.91 ml/min (50-250); Glucose 122 mg/dL (70-99); Potassium 4.2 mmol/L (3.3-5.1); Sodium Level 139 mmol/L (133-145)
--- NOTE | 2024-07-10 15:17 | CASEMGMT ---
Discharge Planning A list of?SNF providers including quality and resource use data and consistent with the patient's preferred geographic region, medical needs, and insurance network was created in [employer] Guide.? This list was provided to the SW. Bina Romero Discharge Planning Asst.
[2024-07-10] MEDS: Acetaminophen 325 MG Tablet 650 MG PO (20:36)
[2024-07-10] MEDS: Arthritis Pain Compound 60 CLICK TUBE TOPICAL (23:49)
[2024-07-11 04:00] VITALS: BP 116/56; PULSE 68; RESP 16; TEMP 36.9; O2SAT 95
[2024-07-11 05:26] VITALS: BMI 25.1
[2024-07-11] MEDS: Enoxaparin 30 MG/0.3 ML Syringe SC (05:55)
[2024-07-11 06:10] LABS: Absolute Lymphocyte Count 2.36 X10^3/uL (0.83-4.51); Absolute Neutrophil Count 6.4 X10^3/uL (2.0-7.7); Basophil# 0.06 X10^3/uL; Basophil% 0.6 % (0-1); Eosinophil# 0.27 X10^3/uL; Eosinophils% 2.7 % (0-5); Hematocrit 36.2 % (37-47); Hemoglobin 12.6 g/dL (12.0-15.0); Lymphocyte # 2.36 X10^3/ul (0.83-4.51); Lymphocyte % 23.6 % (19-41); Mean Corp Hgb Conc 34.8 g/dL (32-36); Mean Corpuscular Hgb 29.6 pg (27.0-32.0); Mean Platelet Vol. 9.8 fl (6.2-12.0); Monocyte# 0.86 X10^3/uL; Monocyte% 8.6 % (0-10); NRBC Flagged by Analyzer 0 % (0-5); Neutrophil % 64.2 % (47-70); Platelet Count 294 K/mm3 (150-450); RBC Distribution Width CV 11.7 % (11.6-14.6); RBC Distribution Width SD 35.7 fl (35.1-43.9); Red Blood Count 4.26 M/mm3 (4.2-5.4)
[2024-07-11 06:54] LABS: ALB/GLOB Ratio 1.6 RATIO (0.9-2.4); AST(SGOT) 89 U/L (<=31); Alanine Aminotransfer ALT/SGPT 20 U/L (<=34); Albumin, Serum 4.2 g/dL (3.4-4.8); Alkaline Phosphatase 60 U/L (35-104); Anion Gap 12 (5-15); BUN 18 mg/dL (4-19); BUN/Creat Ratio 12.7 RATIO (10-20); Calcium,Total 9.7 mg/dL (7.6-11.0); Carbon Dioxide 22.2 mmol/L (21.0-32.0); Chloride 104 mmol/L (98-108); Creatinine, Serum 1.44 mg/dL (0.70-1.20); EST Glomerular Filtration Rate 36 (>60); Estimated Creatinine Clearance 25.77 ml/min (50-250); Globulin 2.7 g/dL (2.2-4.2); Glucose 112 mg/dL (70-99); Potassium 3.5 mmol/L (3.3-5.1); Protein, Total 6.8 g/dL (5.9-8.4); Sodium Level 139 mmol/L (133-145); Total Bilirubin 0.37 mg/dL (0.00-1.30)
[2024-07-11] MEDS: amLODIPine 5 MG Tablet PO (07:43)
[2024-07-11] MEDS: Ezetimibe 10 MG Tablet PO (07:43)
[2024-07-11] MEDS: Aspirin E.C. 81 MG Tablet PO (07:43)
[2024-07-11] MEDS: Pantoprazole Sodium 40 MG Tablet PO (07:43)
[2024-07-11] MEDS: Arthritis Pain Compound 60 CLICK TUBE TOPICAL ×2 (07:43→20:39)
[2024-07-11] MEDS: Lisinopril 10 MG Tablet PO (07:43)
[2024-07-11 09:26] VITALS: BP 141/58; PULSE 79; RESP 18; TEMP 36.8; O2SAT 95
[2024-07-11 10:31] VITALS: O2SAT 95
--- NOTE | 2024-07-11 12:51 | CASEMGMT ---
Addendum entered by Nichelle Valdez 07/11/24 16:45: JUANPABLO met with pt niece, Vianney, to discuss discharge plans. Vianney met with Sherlyn to begin the medicaid process prior to meeting with JUANPABLO. Vianney reports that she has been attempting to allow pt as much autonomy as possible and expressed feeling uncomfortable with taking control of more and more of pt daily living. SW actively and empathetically listened, providing support. SW provided education regarding AL, SNF, assisted living waiver, and placement process. SW provided information on memory care units. SW provided rack card for [place] SNF navigator. A list of SNF providers including quality and resource use data and consistent with the patient?s preferred geographic region, medical needs, and insurance network were provided from the [facility]. Pt nizainab selected [facility] as FOC with [facility] as alternate within insurance network for skilled level of care. If medicaid pending number is available today or Sunday, pt niece FOC is [facility] for LTC. Pt nizainab prefers to place pt at LTC facility that she will remain at if possible. JUANPABLO discussed logistics of referral process and discharge process, providing education and support. DEEDEE updated on pt and pt niece preferences for discharge. JUANPABLO completed referral to TCU. JUANPABLO remains available to follow. CRISTY Rosenthal Original Note: Social Work- JUANPABLO spoke with pt Vianney douglas, in regards to preferences at discharge. Vianney reports that if pt is unable to go to SNF, pt would discharge home with her sister. Vianney reports that they have someone in the home daily, as well as take pt and her sister out somewhere daily. Vianney reports that she feels pt needs a higher level of care than home and has been looking into medicaid, as pt is unable to afford AL on own. Vianney reports that she believes that pt has social security with no to minimal savings. Vianney reports that she had therapy following discharge from [facility] in 11/16 through 04/19, however, pt does not do much at home and is mostly uncooperative with attempts to keep pt active. Vianney is interested in AL waiver and meeting with [employer] [facility] [employer] sales representative when she visits this afternoon. JUANPABLO completed referral to Sherlyn/[employer]. JUANPABLO will follow up with Vianney on discharge planning when she arrives this afternoon. CRISTY Rosenthal
--- NOTE | 2024-07-11 13:06 | PN_ITS ---
Subjective Subjective Patient seen and examined. She was up and walking from the bathroom. She denied any fever, chills, dizziness, palpitations, nausea, vomiting or any other symptoms. Review of systems is otherwise negative. Objective Data Objective Data Vital Signs: Vital Signs Temp Pulse Resp BP Pulse Ox O2 Del Method 98.2 F 79 18 141/58 H 95 Room Air 07/11/24 09:26 07/11/24 09:26 07/11/24 09:26 07/11/24 09:26 07/11/24 10:31 07/11/24 09:26 Oxygen Delivery Method Room Air Weight: 141 lb 12.116 oz Body Mass Index (BMI) 25.1 Intake & Output: Intake and Output for Last 24 Hours 07/09/24 07/10/24 07/11/24 23:59 23:59 23:59 Intake Total 180 / 180 Balance 180 / 180 Lab / Micro Data 07/11/24 04:56 07/11/24 04:56 Labs: Laboratory Results - last 24 hr 07/10/24 14:19: WBC 13.3 H, RBC 4.63, Hgb 13.8, Hct 39.6, MCV 85.5, MCH 29.8, MCHC 34.8, RDW Std Deviation 35.8, RDW Coeff of Arlette 11.6, Plt Count 314, MPV 9.5, Immature Gran % (Auto) 0.500, Neut % (Auto) 88.9 H, Lymph % (Auto) 7.3 L, Fulton % (Auto) 2.6, Eos % (Auto) 0.2, Baso % (Auto) 0.5, Absolute Neuts (auto) 11.9 H, Absolute Lymphs (auto) 0.97, Nucleated RBC % 0, Sodium 139, Potassium 4.2, Chloride 103, Carbon Dioxide 23.9, Anion Gap 13, BUN 15, Creatinine 1.38 H, Estim Creat Clear Calc 26.91 L, Est GFR (MDRD) Non-Af 38 L, BUN/Creatinine Ratio 10.9, Glucose 122 H, Calcium 10.1 07/11/24 04:56: WBC 10.0, RBC 4.26, Hgb 12.6, Hct 36.2 L, MCV 85.0, MCH 29.6, MCHC 34.8, RDW Std Deviation 35.7, RDW Coeff of Arlette 11.7, Plt Count 294, MPV 9.8, Immature Gran % (Auto) 0.300, Neut % (Auto) 64.2, Lymph % (Auto) 23.6, Fulton % (Auto) 8.6, Eos % (Auto) 2.7, Baso % (Auto) 0.6, Absolute Neuts (auto) 6.4, Absolute Lymphs (auto) 2.36, Nucleated RBC % 0, Sodium 139, Potassium 3.5, Chloride 104, Carbon Dioxide 22.2, Anion Gap 12, BUN 18, Creatinine 1.44 H, E stim Creat Clear Calc 25.77 L, Est GFR (MDRD) Non-Af 36 L, BUN/Creatinine Ratio 12.7, Glucose 112 H, Calcium 9.7, Total Bilirubin 0.37, AST 89 H, ALT 20, Alkaline Phosphatase 60, Total Protein 6.8, Albumin 4.2, Globulin 2.7, Albumin/Globulin Ratio 1.6 Physical Exam Const alert, oriented x3 and no apparent distress General Appearance: cooperative HEENT normocephalic, head/scalp atraumatic, moist oral mucous membranes and oropharynx normal Eyes PERRL and EOMs intact bilaterally Neck no lymphadenopathy, supple and no JVD Lymph Lymphatic: no lymphadenopathy noted and no lymphedema noted Resp Resp Narrative: mildly diminished breath sounds bibasally, no wheezes or crackles. On room air. Cardio regular rate, regular rhythm, S1 normal heart sound, S2 normal heart sound and no murmurs GI normal to inspection, nondistended, normoactive bowel sounds, soft to palpation, non-tender and non-distended Extremity normal capillary refill, no clubbing, cyanosis or edema and no calf tenderness Skin General Skin Exam: no breakdown Neuro CN's II-XII intact bilaterally, no focal motor deficits and no sensory deficits noted Motor Exam: strength 5/5 throughout and general weakness Psych thought process normal, cooperative and affect normal Mood & Affect: flat affect Assessment & Plan Assessment/Plan (1) Dementia: (2) Contusion of hip, left: (3) Injury due to fall: PLAN: Plan #debility due to mechanical fall * Patient has a history of dementia. She came to the ED after she fell at home. * Patient is ambulating today. She does have a shuffling gait. * PT/OT On board. * patient counseled not to be walking around on her own due to risk of falls. Discussed with nurses as patient should have a bed alarm. * fall precautions. * #Dementia * Does not appear to have behavioral disturbance. PT OT on board will fall precautions * #SUSAN: * Creatinine was 1.38 on admission is 1.44 today. * Baseline creatinine from 2023 appears to be around 0.7. * Will hydrate with IV fluids and monitor. * #Hypertension: On amlodipine and benazepril. IV hydralazine. #Hyperlipidemia: on ezetimibe #Meniere's disease: on meclizine prn #GERD: on PPI DVT prophylaxis: lovenox. Charges/Coding Visit Charges Inpatient E&M: 30488 Subs Hosp L2
[2024-07-11] MEDS: 0.9% Saline Lock 10 ML Syringe IV ×2 (13:47→18:25)
[2024-07-11] MEDS: 0.9% Normal Saline (1000mL) 1,000 ML 125 ML IV ×2 (13:47→21:40)
[2024-07-11 14:25] VITALS: BP 114/63; PULSE 73; RESP 18; TEMP 36.7; O2SAT 96
--- NOTE | 2024-07-11 15:06 | CASEMGMT ---
Met with patient to complete MELCHOR form. MELCHOR form explained to patient who voiced understanding and signed form. Original form placed in pt?s chart and copy provided to patient. Bina Romero, Discharge Planning Asst
--- NOTE | 2024-07-11 15:06 | CHAPLAIN ---
Type of Pastoral Visit _x__ Initial Visit ___ Follow-up Visit ___ On-call Visit ___ General Patient Visit ___ Spiritual Assessment ___ Family Conference ___ Bereavement ___ Rapid Response ___ Code Blue ___ Other (describe below) Pastoral Care Referral From _x__ Patient ___ Family ___ Nurse ___ Physician ___ Sandblast Carver ___ Respiratory Therapist ___ Other (describe below) Sacrament/Intervention _x__ Active listening ___ Anointing ___ Religion ___ Bereavement ___ Communion ___ Ruthie exploration ___ ___ Life review _x__ Prayer ___ Reconciliation ___ Sacrament of Sick _x__ Supportive presence ___ Wedding ___ Other (describe below) Pastoral Comments patient was resting quietly in bed; pt is welcoming and denies any worries or concerns; pt says that she lives alone and that there isn't anything needed to be done there; pt has limited family per this conversation; pt says that she would like a prayer spoken but again denies needs or concerns
[2024-07-11 20:34] VITALS: BP 105/84; PULSE 77; RESP 18; TEMP 36.9; O2SAT 94
[2024-07-12 06:10] VITALS: BP 148/78; PULSE 80; RESP 18; TEMP 36.8; O2SAT 94
[2024-07-12 06:13] VITALS: BMI 24.6
[2024-07-12] MEDS: Enoxaparin 30 MG/0.3 ML Syringe SC (06:14)
[2024-07-12] MEDS: 0.9% Saline Lock 10 ML Syringe IV (06:17)
[2024-07-12 06:36] LABS: Absolute Lymphocyte Count 1.64 X10^3/uL (0.83-4.51); Basophil# 0.06 X10^3/uL; Basophil% 0.7 % (0-1); Eosinophil# 0.34 X10^3/uL; Eosinophils% 3.9 % (0-5); Hematocrit 36.1 % (37-47); Hemoglobin 12.1 g/dL (12.0-15.0); Lymphocyte # 1.64 X10^3/ul (0.83-4.51); Lymphocyte % 18.6 % (19-41); Mean Corp Hgb Conc 33.5 g/dL (32-36); Mean Corpuscular Hgb 29.2 pg (27.0-32.0); Mean Corpuscular Volume 87.2 fL (81-99); Mean Platelet Vol. 9.8 fl (6.2-12.0); Monocyte# 0.79 X10^3/uL; NRBC Flagged by Analyzer 0 % (0-5); Neutrophil # 5.96 X10^3/uL (2.7-7.7); Neutrophil % 67.7 % (47-70); Platelet Count 270 K/mm3 (150-450); RBC Distribution Width CV 11.7 % (11.6-14.6); RBC Distribution Width SD 37.4 fl (35.1-43.9); Red Blood Count 4.14 M/mm3 (4.2-5.4); White Blood Count 8.8 K/mm3 (4.4-11.0)
[2024-07-12 07:13] LABS: Anion Gap 12 (5-15); BUN 18 mg/dL (4-19); BUN/Creat Ratio 11.8 RATIO (10-20); Calcium,Total 9.3 mg/dL (7.6-11.0); Carbon Dioxide 21.5 mmol/L (21.0-32.0); Chloride 108 mmol/L (98-108); Creatinine, Serum 1.55 mg/dL (0.70-1.20); EST Glomerular Filtration Rate 33 (>60); Estimated Creatinine Clearance 23.74 ml/min (50-250); Glucose 109 mg/dL (70-99); Potassium 3.4 mmol/L (3.3-5.1); Sodium Level 141 mmol/L (133-145)
[2024-07-12 07:35] VITALS: O2SAT 94
[2024-07-12] MEDS: Arthritis Pain Compound 60 CLICK TUBE TOPICAL ×2 (08:26→23:04)
[2024-07-12] MEDS: Aspirin E.C. 81 MG Tablet PO (08:27)
[2024-07-12] MEDS: Pantoprazole Sodium 40 MG Tablet PO (08:27)
[2024-07-12] MEDS: Ezetimibe 10 MG Tablet PO (08:27)
[2024-07-12 09:58] VITALS: BP 125/50; PULSE 75; RESP 16; TEMP 36.7; O2SAT 93
[2024-07-12] MEDS: amLODIPine 5 MG Tablet PO (10:00)
[2024-07-12] MEDS: 0.9% Normal Saline (1000mL) 1,000 ML 125 ML IV ×2 (10:00→18:18)
--- NOTE | 2024-07-12 12:42 | PN_ITS ---
Subjective Subjective Patient seen and examined today. She had no active complaints. Review of systems otherwise negative. She has remained hemodynamically stable. She is awaiting placement. Objective Data Objective Data Vital Signs: Vital Signs Temp Pulse Resp BP Pulse Ox O2 Del Method 98.1 F 75 16 125/50 H 93 Room Air 07/12/24 09:58 07/12/24 09:58 07/12/24 09:58 07/12/24 09:58 07/12/24 09:58 07/12/24 09:58 Oxygen Delivery Method Room Air Weight: 139 lb 1.787 oz Body Mass Index (BMI) 24.6 Intake & Output: Intake and Output for Last 24 Hours 07/10/24 07/11/24 07/12/24 23:59 23:59 23:59 Intake Total 180 / 180 968.75 / 968.75 633.33 / 633.33 Balance 180 / 180 968.75 / 968.75 633.33 / 633.33 Lab / Micro Data 07/12/24 05:35 07/12/24 05:35 Labs: Laboratory Results - last 24 hr 07/12/24 05:35: WBC 8.8, RBC 4.14 L, Hgb 12.1, Hct 36.1 L, MCV 87.2, MCH 29.2, MCHC 33.5, RDW Std Deviation 37.4, RDW Coeff of Arlette 11.7, Plt Count 270, MPV 9.8, Immature Gran % (Auto) 0.100, Neut % (Auto) 67.7, Lymph % (Auto) 18.6 L, Mcminn % (Auto) 9.0, Eos % (Auto) 3.9, Baso % (Auto) 0.7, Absolute Neuts (auto) 6.0, Absolute Lymphs (auto) 1.64, Nucleated RBC % 0, Sodium 141, Potassium 3.4, Chloride 108, Carbon Dioxide 21.5, Anion Gap 12, BUN 18, Creatinine 1.55 H, E stim Creat Clear Calc 23.74 L, Est GFR (MDRD) Non-Af 33 L, BUN/Creatinine Ratio 11.8, Glucose 109 H, Calcium 9.3 Physical Exam Const alert, oriented x3 and no apparent distress General Appearance: cooperative HEENT normocephalic, head/scalp atraumatic, moist oral mucous membranes and oropharynx normal Eyes PERRL and EOMs intact bilaterally Neck no lymphadenopathy, supple and no JVD Lymph Lymphatic: no lymphadenopathy noted and no lymphedema noted Resp Resp Narrative: mildly diminished breath sounds bibasally, no wheezes or crackles. On room air. Cardio regular rate, regular rhythm, S1 normal heart sound, S2 normal heart sound and no murmurs GI normal to inspection, nondistended, normoactive bowel sounds, soft to palpation, non-tender and non-distended Extremity normal capillary refill, no clubbing, cyanosis or edema and no calf tenderness Skin General Skin Exam: no breakdown Neuro CN's II-XII intact bilaterally, no focal motor deficits and no sensory deficits noted Motor Exam: strength 5/5 throughout and general weakness Psych thought process normal, cooperative and affect normal Mood & Affect: flat affect Assessment & Plan Assessment/Plan (1) Dementia: (2) Contusion of hip, left: (3) Injury due to fall: PLAN: Plan #debility due to mechanical fall * Patient has a history of dementia. She came to the ED after she fell at home. * PT/OT On board. * patient counseled not to be walking around on her own due to risk of falls. Discussed with nurses as patient should have a bed alarm. * fall precautions. * #Dementia * Does not appear to have behavioral disturbance. PT OT on board will fall precautions * #SUSAN: * Creatinine was 1.38 on admission and has trended up further to 1.55 today. * Baseline creatinine from 2023 appears to be around 0.7. * Will hydrate with IV fluids and monitor. * #Hypertension: On amlodipine and benazepril. IV hydralazine. LEVI-I already on hold. #Hyperlipidemia: on ezetimibe #Meniere's disease: on meclizine prn #GERD: on PPI DVT prophylaxis: lovenox. Charges/Coding Visit Charges Inpatient E&M: 18351 Subs Hosp L2
[2024-07-12 14:47] VITALS: BP 134/54; PULSE 71; RESP 18; TEMP 36.8; O2SAT 95
[2024-07-12 14:48] VITALS: PULSE 80
[2024-07-12 23:01] VITALS: BP 132/87; PULSE 68; RESP 18; TEMP 36.8; O2SAT 96
[2024-07-13 02:11] VITALS: BP 130/57; PULSE 72; RESP 16; TEMP 37.1; O2SAT 94
[2024-07-13] MEDS: 0.9% Normal Saline (1000mL) 1,000 ML 125 ML IV (02:17)
[2024-07-13 06:28] VITALS: BMI 25.0
[2024-07-13] MEDS: Enoxaparin 30 MG/0.3 ML Syringe SC (06:29)
[2024-07-13 06:32] LABS: Absolute Lymphocyte Count 1.75 X10^3/uL (0.83-4.51); Absolute Neutrophil Count 4.4 X10^3/uL (2.0-7.7); Basophil# 0.06 X10^3/uL; Basophil% 0.8 % (0-1); Eosinophil# 0.43 X10^3/uL; Eosinophils% 5.9 % (0-5); Hematocrit 32.2 % (37-47); Hemoglobin 10.9 g/dL (12.0-15.0); Lymphocyte # 1.75 X10^3/ul (0.83-4.51); Mean Corp Hgb Conc 33.9 g/dL (32-36); Mean Corpuscular Hgb 29.4 pg (27.0-32.0); Mean Corpuscular Volume 86.8 fL (81-99); Mean Platelet Vol. 9.6 fl (6.2-12.0); Monocyte# 0.62 X10^3/uL; Monocyte% 8.5 % (0-10); NRBC Flagged by Analyzer 0 % (0-5); Neutrophil # 4.42 X10^3/uL (2.7-7.7); Neutrophil % 60.7 % (47-70); Platelet Count 234 K/mm3 (150-450); RBC Distribution Width CV 11.5 % (11.6-14.6); RBC Distribution Width SD 36.4 fl (35.1-43.9); Red Blood Count 3.71 M/mm3 (4.2-5.4); White Blood Count 7.3 K/mm3 (4.4-11.0)
[2024-07-13 06:51] LABS: Anion Gap 10 (5-15); BUN 11 mg/dL (4-19); BUN/Creat Ratio 9.6 RATIO (10-20); Calcium,Total 8.7 mg/dL (7.6-11.0); Chloride 110 mmol/L (98-108); Creatinine, Serum 1.17 mg/dL (0.70-1.20); EST Glomerular Filtration Rate 46 (>60); Estimated Creatinine Clearance 31.68 ml/min (50-250); Glucose 104 mg/dL (70-99); Potassium 3.2 mmol/L (3.3-5.1); Sodium Level 141 mmol/L (133-145)
[2024-07-13 07:40] VITALS: O2SAT 94
[2024-07-13 07:44] VITALS: BP 140/77; PULSE 64; RESP 16; TEMP 36.5; O2SAT 94
[2024-07-13] MEDS: amLODIPine 5 MG Tablet PO (07:49)
[2024-07-13] MEDS: Pantoprazole Sodium 40 MG Tablet PO (07:49)
[2024-07-13] MEDS: Aspirin E.C. 81 MG Tablet PO (07:49)
[2024-07-13] MEDS: Potassium Chloride Oral Tablet 20 MEQ 40 MEQ PO (07:49)
[2024-07-13] MEDS: Ezetimibe 10 MG Tablet PO (07:50)
[2024-07-13] MEDS: Arthritis Pain Compound 60 CLICK TUBE TOPICAL ×2 (07:50→21:48)
--- NOTE | 2024-07-13 10:20 | PN_ITS ---
Subjective Subjective Patient seen and examined. She felt well and had no complaints and had an uneventful night. Review of systems is otherwise negative. She has remained hemodynamically stable. Cr has trended down to 1.17. Objective Data Objective Data Vital Signs: Vital Signs Temp Pulse Resp BP Pulse Ox O2 Del Method 97.7 F L 64 16 140/77 H 94 Room Air 07/13/24 07:44 07/13/24 07:44 07/13/24 07:44 07/13/24 07:44 07/13/24 07:44 07/13/24 09:41 Oxygen Delivery Method Room Air Weight: 141 lb 5.061 oz Body Mass Index (BMI) 25.0 Intake & Output: Intake and Output for Last 24 Hours 07/11/24 07/12/24 07/13/24 23:59 23:59 23:59 Intake Total 968.75 / 968.75 1633.33 / 1833.33 1197.92 / 1197.92 Balance 968.75 / 968.75 1633.33 / 1833.33 1197.92 / 1197.92 Lab / Micro Data 07/13/24 05:40 07/13/24 05:40 Labs: Laboratory Results - last 24 hr 07/13/24 05:40: WBC 7.3, RBC 3.71 L, Hgb 10.9 L, Hct 32.2 L, MCV 86.8, MCH 29.4, MCHC 33.9, RDW Std Deviation 36.4, RDW Coeff of Arlette 11.5 L, Plt Count 234, MPV 9.6, Immature Gran % (Auto) 0.100, Neut % (Auto) 60.7, Lymph % (Auto) 24.0, [place] % (Auto) 8.5, Eos % (Auto) 5.9 H, Baso % (Auto) 0.8, Absolute Neuts (auto) 4.4, Absolute Lymphs (auto) 1.75, Nucleated RBC % 0, Sodium 141, Potassium 3.2 L, C hloride 110 H, Carbon Dioxide 21.0, Anion Gap 10, BUN 11, Creatinine 1.17, Estim Creat Clear Calc 31.68 L, Est GFR (MDRD) Non-Af 46 L, BUN/Creatinine Ratio 9.6 L , Glucose 104 H, Calcium 8.7 Physical Exam Const alert, oriented x3 and no apparent distress General Appearance: cooperative HEENT normocephalic, head/scalp atraumatic, moist oral mucous membranes and oropharynx normal Eyes PERRL and EOMs intact bilaterally Neck no lymphadenopathy, supple and no JVD Lymph Lymphatic: no lymphadenopathy noted and no lymphedema noted Resp Resp Narrative: mildly diminished breath sounds bibasally, no wheezes or crackles. On room air. Cardio regular rate, regular rhythm, S1 normal heart sound, S2 normal heart sound and no murmurs GI normal to inspection, nondistended, normoactive bowel sounds, soft to palpation, non-tender and non-distended Extremity normal capillary refill, no clubbing, cyanosis or edema and no calf tenderness General Extremity: no tenderness to palpation of joints or extremities Skin General Skin Exam: no breakdown Neuro CN's II-XII intact bilaterally, no focal motor deficits and no sensory deficits noted Motor Exam: strength 5/5 throughout and general weakness Psych thought process normal, cooperative and affect normal Mood & Affect: flat affect Assessment & Plan Assessment/Plan (1) Dementia: (2) Contusion of hip, left: (3) Injury due to fall: PLAN: Plan #debility due to mechanical fall * Patient has a history of dementia. She came to the ED after she fell at home. * PT/OT On board. * fall precautions. * #Dementia * Does not appear to have behavioral disturbance. PT OT on board will fall precautions * #SUSAN: * resolved. Cr is down to 1.17 today. * encourage oral hydration * #Hypokalemia: 3.2. Will replace and trend. #Hypertension: On amlodipine and benazepril. IV hydralazine. LEVI-I already on hold. #Hyperlipidemia: on ezetimibe #Meniere's disease: on meclizine prn #GERD: on PPI DVT prophylaxis: lovenox. Charges/Coding Visit Charges Inpatient E&M: 88078 Subs Hosp L2
[2024-07-13 14:00] VITALS: BP 139/68; PULSE 78; RESP 17; TEMP 36.6; O2SAT 97
[2024-07-13 21:44] VITALS: BP 134/69; PULSE 75; RESP 16; TEMP 36.9; O2SAT 96
[2024-07-13] MEDS: 0.9% Saline Lock 10 ML Syringe IV (21:46)
[2024-07-13] MEDS: MELATONIN 3 MG TABLET PO (21:47)
[2024-07-13] MEDS: Acetaminophen 325 MG Tablet 650 MG PO (21:47)
[2024-07-14 06:00] VITALS: BMI 24.5
[2024-07-14 06:14] VITALS: BP 143/66; PULSE 62; RESP 18; TEMP 36.5; O2SAT 96
[2024-07-14] MEDS: Enoxaparin 30 MG/0.3 ML Syringe SC (06:21)
[2024-07-14 07:38] LABS: Absolute Lymphocyte Count 1.58 X10^3/uL (0.83-4.51); Absolute Neutrophil Count 3.7 X10^3/uL (2.0-7.7); Basophil# 0.05 X10^3/uL; Basophil% 0.8 % (0-1); Eosinophils% 6.3 % (0-5); Hematocrit 33.3 % (37-47); Hemoglobin 11.6 g/dL (12.0-15.0); Lymphocyte # 1.58 X10^3/ul (0.83-4.51); Lymphocyte % 25.1 % (19-41); Mean Corp Hgb Conc 34.8 g/dL (32-36); Mean Platelet Vol. 9.7 fl (6.2-12.0); Monocyte# 0.58 X10^3/uL; Monocyte% 9.2 % (0-10); NRBC Flagged by Analyzer 0 % (0-5); Neutrophil # 3.68 X10^3/uL (2.7-7.7); Neutrophil % 58.4 % (47-70); Platelet Count 270 K/mm3 (150-450); RBC Distribution Width CV 11.6 % (11.6-14.6); RBC Distribution Width SD 35.9 fl (35.1-43.9); Red Blood Count 3.87 M/mm3 (4.2-5.4); White Blood Count 6.3 K/mm3 (4.4-11.0)
[2024-07-14 08:12] LABS: Anion Gap 11 (5-15); BUN 12 mg/dL (4-19); BUN/Creat Ratio 9.5 RATIO (10-20); Calcium,Total 9.4 mg/dL (7.6-11.0); Carbon Dioxide 20.4 mmol/L (21.0-32.0); Chloride 109 mmol/L (98-108); EST Glomerular Filtration Rate 40 (>60); Estimated Creatinine Clearance 28.27 ml/min (50-250); Glucose 103 mg/dL (70-99); Potassium 3.5 mmol/L (3.3-5.1); Sodium Level 141 mmol/L (133-145)
[2024-07-14] MEDS: Pantoprazole Sodium 40 MG Tablet PO (08:38)
[2024-07-14] MEDS: amLODIPine 5 MG Tablet PO (08:38)
[2024-07-14] MEDS: Aspirin E.C. 81 MG Tablet PO (08:38)
[2024-07-14] MEDS: Ezetimibe 10 MG Tablet PO (08:38)
[2024-07-14] MEDS: Arthritis Pain Compound 60 CLICK TUBE TOPICAL ×2 (08:40→21:22)
[2024-07-14 08:45] VITALS: BP 148/74; PULSE 77; RESP 16; TEMP 36.7; O2SAT 98
--- NOTE | 2024-07-14 09:34 | CASEMGMT ---
Discharge Planning [facility] currently has no exterminator bed availability. SW updated. Bina Romero DC Planning Asst.
--- NOTE | 2024-07-14 09:53 | CASEMGMT ---
Addendum entered by Nichelle Valdez 07/14/24 13:35: [facility] declined pt referral. JUANPABLO called pt stella to update. Pt stella would like referral to [facility]. DEEDEE notified. JUANPABLO remains available to follow. CRISTY Rosenthal Original Note: Social Work- SW received a call from Vianney, pt stella, to discuss questions from family regarding LTC [facility]. JUANPABLO provided education and also provided Sherlyn, [facility], contact. JUANPABLO received notice that [facility] does not have any LTC beds. JUANPABLO received pending number for [facility]: [id number] JUANPABLO called pt stella Faith to update on status of [facility] and referrals. JUANPABLO provided education on dementia and dementia units. Vianney will review with family, but in the meantime, Vianney would like a referral to [facility]. DEEDEE notified. CRISTY Rosenthal
--- NOTE | 2024-07-14 10:36 | CASEMGMT ---
Addendum entered by Bina Romero 07/14/24 13:42: [facility] declined. SW updated. Bina Romero DC Planning Asst. Original Note: Discharge Planning Referral sent to [facility]. Bina Romero DC Planning Asst.
--- NOTE | 2024-07-14 13:42 | CASEMGMT ---
Discharge Planning Referral sent to [facility]. Bina Romero DC Planning Asst.
--- NOTE | 2024-07-14 16:04 | CASEMGMT ---
[facility] has accepted pending a risk assessement d/t pt admitting [facility] pending. Bina Romero DC Planning Asst.
[2024-07-14 16:36] VITALS: BP 143/80; PULSE 74; RESP 16; TEMP 36.4; O2SAT 96
--- NOTE | 2024-07-14 17:20 | PN.HOSP_ITS ---
Reason for Visit Reason for Visit: Diagnoses Unspecified dementia, unspecified severity, without behavioral disturbance, psychotic disturbance, mood disturbance, and anxiety (07/12/24) Contusion of left hip, initial encounter (07/12/24) Unspecified fall, initial encounter (07/12/24) Subjective Subjective Patient was seen and examined today, she does not appear to be in any distress. We are awaiting approval for her to go to an extended care facility for inpatient rehab services. Objective Data Objective Data Vital Signs: Vital Signs Temp Pulse Resp BP Pulse Ox O2 Del Method 97.6 F L 74 16 143/80 H 96 Room Air 07/14/24 16:36 07/14/24 16:36 07/14/24 16:36 07/14/24 16:36 07/14/24 16:36 07/14/24 16:36 Oxygen Delivery Method Room Air Weight: 62.9 kg Body Mass Index (BMI) 24.5 Intake & Output: Intake and Output for Last 24 Hours 07/12/24 07/13/24 07/14/24 23:59 23:59 23:59 Intake Total 1633.33 / 1833.33 2497.92 / 2497.92 Balance 1633.33 / 1833.33 2497.92 / 2497.92 Lab / Micro Data 07/14/24 06:30 07/14/24 06:30 Labs: Laboratory Results - last 24 hr 07/14/24 06:30: WBC 6.3, RBC 3.87 L, Hgb 11.6 L, Hct 33.3 L, MCV 86.0, MCH 30.0, MCHC 34.8, RDW Std Deviation 35.9, RDW Coeff of Arlette 11.6, Plt Count 270, MPV 9.7, Immature Gran % (Auto) 0.200, Neut % (Auto) 58.4, Lymph % (Auto) 25.1, Gilliam % (Auto) 9.2, Eos % (Auto) 6.3 H, Baso % (Auto) 0.8, Absolute Neuts (auto) 3.7, Absolute Lymphs (auto) 1.58, Nucleated RBC % 0, Sodium 141, Potassium 3.5, C hloride 109 H, Carbon Dioxide 20.4 L, Anion Gap 11, BUN 12, Creatinine 1.30 H, E stim Creat Clear Calc 28.27 L, Est GFR (MDRD) Non-Af 40 L, BUN/Creatinine Ratio 9.5 L, Glucose 103 H, Calcium 9.4 Physical Exam Const alert, no apparent distress and average body habitus Constitutional Narrative: Patient exhibits some moderate cognitive impairment General Appearance: cooperative, well kempt and well developed Orientation / Consciousness: awake, oriented to person and oriented to place HEENT normocephalic, head/scalp atraumatic and moist oral mucous membranes Eyes PERRL, EOMs intact bilaterally and conjunctivae normal Neck supple, no JVD, thyroid normal and no carotid bruits General: trachea midline Resp normal respiratory effort, no retractions, no use of accessory muscles and clear to auscultation bilaterally Auscultation: Negative for rales, rhonchi or wheezes Cardio regular rate, regular rhythm, S1 normal heart sound, S2 normal heart sound, no murmurs, no rub and no gallops GI normal to inspection, nondistended, normoactive bowel sounds, soft to palpation, non-tender and non-distended Extremity no clubbing, cyanosis or edema Skin no rashes or lesions noted General Skin Exam: no breakdown Neuro CN's II-XII intact bilaterally, no focal motor deficits and no sensory deficits noted Sensorium / Orientation: awake, alert, oriented to person and oriented to place Speech: speech normal Psych Psych Narrative: Patient has moderate cognitive impairment Assessment & Plan Assessment/Plan (1) Contusion of hip, left: PLAN: Plan 1. Acute debility secondary to left hip contusion on a backdrop of underlying dementia and advanced age-PT and OT will continue to see the patient, she will need placement in a custodial facility #2 essential hypertension-patient will remain on her present medications #3 hyperlipidemia-patient is on Zetia #4 dementia-complicates care, management, recovery, and prognosis Total clinical time spent by myself addressing patient's medical issues, reviewing all of her data, and collaborating with the patient's care team: 35 minutes Charges/Coding Visit Charges Inpatient E&M: 92136 Subs Hosp L2
[2024-07-14 20:12] VITALS: BP 145/75; PULSE 76; RESP 16; TEMP 36.7; O2SAT 98
[2024-07-14] MEDS: Acetaminophen 325 MG Tablet 650 MG PO (21:22)
[2024-07-14] MEDS: MELATONIN 3 MG TABLET PO (21:22)
[2024-07-15 02:10] VITALS: BP 139/59; PULSE 69; RESP 16; TEMP 37.1; O2SAT 98
[2024-07-15 04:50] LABS: Absolute Lymphocyte Count 1.96 X10^3/uL (0.83-4.51); Absolute Neutrophil Count 3.6 X10^3/uL (2.0-7.7); Basophil# 0.08 X10^3/uL; Basophil% 1.2 % (0-1); Eosinophil# 0.41 X10^3/uL; Eosinophils% 6.2 % (0-5); Hematocrit 33.3 % (37-47); Hemoglobin 11.7 g/dL (12.0-15.0); Lymphocyte # 1.96 X10^3/ul (0.83-4.51); Lymphocyte % 29.7 % (19-41); Mean Corp Hgb Conc 35.1 g/dL (32-36); Mean Corpuscular Hgb 29.8 pg (27.0-32.0); Mean Corpuscular Volume 84.9 fL (81-99); Mean Platelet Vol. 9.6 fl (6.2-12.0); Monocyte% 7.6 % (0-10); NRBC Flagged by Analyzer 0 % (0-5); Neutrophil # 3.63 X10^3/uL (2.7-7.7); Neutrophil % 55.1 % (47-70); Platelet Count 274 K/mm3 (150-450); RBC Distribution Width CV 11.5 % (11.6-14.6); RBC Distribution Width SD 35.1 fl (35.1-43.9); Red Blood Count 3.92 M/mm3 (4.2-5.4); White Blood Count 6.6 K/mm3 (4.4-11.0)
[2024-07-15 05:17] LABS: Anion Gap 12 (5-15); BUN 14 mg/dL (4-19); BUN/Creat Ratio 10.5 RATIO (10-20); Calcium,Total 9.5 mg/dL (7.6-11.0); Carbon Dioxide 21.8 mmol/L (21.0-32.0); Chloride 107 mmol/L (98-108); Creatinine, Serum 1.32 mg/dL (0.70-1.20); EST Glomerular Filtration Rate 40 (>60); Estimated Creatinine Clearance 27.84 ml/min (50-250); Glucose 105 mg/dL (70-99); Potassium 3.4 mmol/L (3.3-5.1); Sodium Level 140 mmol/L (133-145)
[2024-07-15] MEDS: Enoxaparin 30 MG/0.3 ML Syringe SC (05:31)
[2024-07-15 05:34] VITALS: BMI 24.4
[2024-07-15 07:35] VITALS: BP 136/76; PULSE 63; RESP 16; TEMP 36.6; O2SAT 97
[2024-07-15] MEDS: Arthritis Pain Compound 60 CLICK TUBE TOPICAL ×2 (08:43→21:10)
[2024-07-15] MEDS: Aspirin E.C. 81 MG Tablet PO (08:43)
[2024-07-15] MEDS: amLODIPine 5 MG Tablet PO (08:43)
[2024-07-15] MEDS: Ezetimibe 10 MG Tablet PO (08:44)
[2024-07-15] MEDS: Pantoprazole Sodium 40 MG Tablet PO (08:44)
[2024-07-15 11:08] VITALS: BP 132/78; PULSE 74; RESP 18; TEMP 36.5; O2SAT 95
--- NOTE | 2024-07-15 13:50 | CASEMGMT ---
[facility] has accepted. Pt will admit private pay. SW updated. Bina Romero DC Planning Asst.
--- NOTE | 2024-07-15 14:00 | CASEMGMT ---
Social Work - discharge planning Spoke with patient and niece Ashley Tirado at [phone]. Ashley asking if patient is being discharged without a fdc facility in place. Educated that still waiting on acceptance from [facility], but the message from [facility] needs to speak with Ashley regarding financials. Collaboration with discharge planning assistance who gave update that patient was accepted to [facility], private pay. Message from the nursing facility indicates the family needs to pay $2400 upfront. Called patient's niece to discuss and review. Ashley reports she would be able to pull this money together but may not be able to do this until tomorrow, 07/16/2024. Ashley is without a car to get into town today though if this changes we will try to get this project done today. Ashley also reports is working to reach patient's sub assembly team worker, who may have all of the needed power of sub assembly team worker paperwork to access patient's funding. Updated Ashley that patient is ready for discharge as soon as placement can be secured. Ashley expressed understanding and agreement to continue working on the financial piece. Note, this speech writer did verify with the nursing facility that patient cannot admit without that 2400 being paid upfront. PASRR screen completed via the [facility] system. Copy made for the chart. Plan: [facility], intermediate level of care-private pay. Social work will continue to follow and assist -LISA Soliz, YINKA
--- NOTE | 2024-07-15 15:25 | PN.HOSP_ITS ---
Reason for Visit Reason for Visit: Diagnoses Unspecified dementia, unspecified severity, without behavioral disturbance, psychotic disturbance, mood disturbance, and anxiety (07/12/24) Contusion of left hip, initial encounter (07/12/24) Unspecified fall, initial encounter (07/12/24) Subjective Subjective Patient was seen and examined today, she does not appear to be in any distress. Objective Data Objective Data Vital Signs: Vital Signs Temp Pulse Resp BP Pulse Ox O2 Del Method 97.7 F L 74 18 132/78 H 95 Room Air 07/15/24 11:08 07/15/24 11:08 07/15/24 11:08 07/15/24 11:08 07/15/24 11:08 07/15/24 11:08 Oxygen Delivery Method Room Air Weight: 62.6 kg Body Mass Index (BMI) 24.4 Intake & Output: Intake and Output for Last 24 Hours 07/13/24 07/14/24 07/15/24 23:59 23:59 23:59 Intake Total 2497.92 / 2497.92 Balance 2497.92 / 2497.92 Lab / Micro Data 07/15/24 03:37 07/15/24 03:37 Labs: Laboratory Results - last 24 hr 07/15/24 03:37: WBC 6.6, RBC 3.92 L, Hgb 11.7 L, Hct 33.3 L, MCV 84.9, MCH 29.8, MCHC 35.1, RDW Std Deviation 35.1, RDW Coeff of Arlette 11.5 L, Plt Count 274, MPV 9.6, Immature Gran % (Auto) 0.200, Neut % (Auto) 55.1, Lymph % (Auto) 29.7, [place] % (Auto) 7.6, Eos % (Auto) 6.2 H, Baso % (Auto) 1.2 H, Absolute Neuts (auto) 3.6, Absolute Lymphs (auto) 1.96, Nucleated RBC % 0, Sodium 140, Potassium 3.4, Chloride 107, Carbon Dioxide 21.8, Anion Gap 12, BUN 14, Creatinine 1.32 H, E stim Creat Clear Calc 27.84 L, Est GFR (MDRD) Non-Af 40 L, BUN/Creatinine Ratio 10.5, Glucose 105 H, Calcium 9.5 Physical Exam Narrative alert, no apparent distress and average body habitus Constitutional Narrative: Patient exhibits some moderate cognitive impairment General Appearance: cooperative, well kempt and well developed Orientation / Consciousness: awake, oriented to person and oriented to place HEENT normocephalic, head/scalp atraumatic and moist oral mucous membranes Eyes PERRL, EOMs intact bilaterally and conjunctivae normal Neck supple, no JVD, thyroid normal and no carotid bruits General: trachea midline Resp normal respiratory effort, no retractions, no use of accessory muscles and clear to auscultation bilaterally Auscultation: Negative for rales, rhonchi or wheezes Cardio regular rate, regular rhythm, S1 normal heart sound, S2 normal heart sound, no murmurs, no rub and no gallops GI normal to inspection, nondistended, normoactive bowel sounds, soft to palpation, non-tender and non-distended Extremity no clubbing, cyanosis or edema Skin no rashes or lesions noted General Skin Exam: no breakdown Neuro CN's II-XII intact bilaterally, no focal motor deficits and no sensory deficits noted Sensorium / Orientation: awake, alert, oriented to person and oriented to place Speech: speech normal Psych Psych Narrative: Patient has moderate cognitive impairment Assessment & Plan Assessment/Plan (1) Contusion of hip, left: PLAN: Plan 1. Acute debility secondary to left hip contusion on a backdrop of underlying dementia and advanced age-PT and OT will continue to see the patient, the plan is for the patient to go to a nursing facility and this will need to be a private pay agreement with the family, case management has told me that the family is trying to obtain the funds for the patient to go to [facility]. #2 essential hypertension-patient will remain on her present medications #3 hyperlipidemia-patient is on Zetia #4 dementia-complicates care, management, recovery, and prognosis Total clinical time spent by myself addressing patient's medical issues, reviewing all of her data, and collaborating with the patient's care team: 35 minutes Charges/Coding Visit Charges Inpatient E&M: 78873 Subs Hosp L2
[2024-07-15 15:29] VITALS: BP 143/91; PULSE 68; RESP 15; TEMP 36.7; O2SAT 95
[2024-07-15 20:00] VITALS: BP 136/64; PULSE 73; RESP 16; TEMP 36.9; O2SAT 95
[2024-07-15] MEDS: MELATONIN 3 MG TABLET PO (21:10)
[2024-07-15] MEDS: Acetaminophen 325 MG Tablet 650 MG PO (21:10)
[2024-07-16 02:00] VITALS: BP 122/68; PULSE 65; RESP 16; TEMP 36.6; O2SAT 96
[2024-07-16] MEDS: Enoxaparin 30 MG/0.3 ML Syringe SC (05:06)
[2024-07-16 06:00] VITALS: BMI 24.3
[2024-07-16 07:30] VITALS: BP 136/68; PULSE 66; RESP 16; TEMP 36.7; O2SAT 94
[2024-07-16 07:38] LABS: Absolute Lymphocyte Count 1.96 X10^3/uL (0.83-4.51); Absolute Neutrophil Count 4.1 X10^3/uL (2.0-7.7); Basophil# 0.09 X10^3/uL; Basophil% 1.2 % (0-1); Eosinophil# 0.45 X10^3/uL; Eosinophils% 6.1 % (0-5); Hematocrit 36.1 % (37-47); Hemoglobin 12.3 g/dL (12.0-15.0); Lymphocyte # 1.96 X10^3/ul (0.83-4.51); Lymphocyte % 26.7 % (19-41); Mean Corp Hgb Conc 34.1 g/dL (32-36); Mean Corpuscular Hgb 29.6 pg (27.0-32.0); Mean Corpuscular Volume 86.8 fL (81-99); Mean Platelet Vol. 9.6 fl (6.2-12.0); Monocyte# 0.67 X10^3/uL; Monocyte% 9.1 % (0-10); NRBC Flagged by Analyzer 0 % (0-5); Neutrophil # 4.14 X10^3/uL (2.7-7.7); Neutrophil % 56.5 % (47-70); Platelet Count 285 K/mm3 (150-450); RBC Distribution Width CV 11.4 % (11.6-14.6); RBC Distribution Width SD 36.2 fl (35.1-43.9); Red Blood Count 4.16 M/mm3 (4.2-5.4); White Blood Count 7.3 K/mm3 (4.4-11.0)
[2024-07-16 07:59] LABS: Anion Gap 11 (5-15); BUN 16 mg/dL (4-19); BUN/Creat Ratio 11.5 RATIO (10-20); Calcium,Total 9.5 mg/dL (7.6-11.0); Carbon Dioxide 23.8 mmol/L (21.0-32.0); Chloride 106 mmol/L (98-108); Creatinine, Serum 1.37 mg/dL (0.70-1.20); EST Glomerular Filtration Rate 38 (>60); Estimated Creatinine Clearance 24.83 ml/min (50-250); Glucose 106 mg/dL (70-99); Potassium 3.6 mmol/L (3.3-5.1); Sodium Level 141 mmol/L (133-145)
[2024-07-16] MEDS: Aspirin E.C. 81 MG Tablet PO (09:09)
[2024-07-16] MEDS: Pantoprazole Sodium 40 MG Tablet PO (09:09)
[2024-07-16] MEDS: Ezetimibe 10 MG Tablet PO (09:09)
[2024-07-16] MEDS: amLODIPine 5 MG Tablet PO (09:09)
[2024-07-16] MEDS: Arthritis Pain Compound 60 CLICK TUBE TOPICAL (09:09)
[2024-07-16 11:19] VITALS: BP 118/90; PULSE 68; RESP 18; TEMP 36.7; O2SAT 94
--- NOTE | 2024-07-16 11:26 | CASEMGMT ---
Addendum entered by Nichelle Valdez 07/16/24 12:26: [facility] verified that they received payment and pt can d/c. JUANPABLO updated physician. Plan: [facility]; private pay CRISTY Rosenthal Original Note: Social Work- JUANPABLO met with stella Faith who reports that she will stop at pay [facility] before noon. Vianney would like JUANPABLO to set transport. JUANPABLO updated DCA. JUANPABLO remains available to follow. CRISTY Rosenthal
--- NOTE | 2024-07-16 11:38 | CASEMGMT ---
Discharge Planning Per CC, pt can admit today. SW updated. Bina Romero DC Planning Asst.
--- NOTE | 2024-07-16 12:58 | CASEMGMT ---
Social Work Physician updated and pt is ready for discharge today.? PASRR form completed in HENS. [facility] arranged [facility] for 1:30PM pickup via wheelchair van.? SW met with pt and they are agreeable to discharge plan as stated above.? Physician and bedside nurse notified of discharge time. Final arrangements and notifications to be completed by DCA. Disposition: [facility]; intermediate level of care under convalescent stay. CRISTY Rosenthal
--- NOTE | 2024-07-16 13:06 | TREXTCAR_ITS ---
Diet Diet Order/Speech Therapy: 07/10/24 14:40 Diet: Regular - General Food consistency:: Regular Liquid Consistency:: Regular/Thin Routine Orders/Code Status Code Status: Full Code DC O2, CPAP, BIPAP needs Home O2 Discharge instructions: No Therapies Weight Bearing: Full weight bearing Problem/Diagnosis (1) Contusion of hip, left: Status: Acute Code(s): S70.02XA - Contusion of left hip, initial encounter Plan 1. Acute debility secondary to left hip contusion on a backdrop of underlying dementia and advanced age-PT and OT will continue to see the patient, the plan is for the patient to go to a nursing facility and this will need to be a private pay agreement with the family, case management has told me that the family is trying to obtain the funds for the patient to go to [facility]. #2 essential hypertension-patient will remain on her present medications #3 hyperlipidemia-patient is on Zetia #4 dementia-complicates care, management, recovery, and prognosis Total clinical time spent by myself addressing patient's medical issues, reviewing all of her data, and collaborating with the patient's care team: 35 minutes Allergies/Procedures Done in Hospital Allergies No Known Allergies Allergy (Verified 10/22/23 16:16) Procedures: None Type of Care/Length of Stay Estimated LOS: More Than 30 Days Type of Care Needed: Intermediate Rehab Potential: Fair Prognosis: Fair Additional Orders/Day of Discharge H&P will serve as current which was dated: 07/10/24 Day of Discharge: 07/16/24 Dietary and Speech Recommendations Dietitian Recommendations/Changes: Continue liberal regular diet as ordered Rec ONS if po intake decreases and/or wt loss Discharge Plan Admission Admit Date/Time: 07/12/24 11:36 Primary Reason for Your Visit: contusion to left hip, debility Attending Provider: Chris Ruiz Primary Care Provider: Aneta Alcantara Consulting Providers: Rosalia Scales; Taryn Malik Instructions Patient Instructions: ED Contusion, Lower Extremity Additional Instructions / Restrictions: Ice to left hip area 4-6 times a day Tylenol for pain Discharge Orders/Prescriptions Prescriptions: New acetaminophen 325 mg Tablet 650 mg PO Q4H PRN PRN (Reason: Fever, pain 1-10/) Qty: 0 0RF amlodipine 5 mg Tablet 5 mg PO DAILY Qty: 0 0RF aspirin 81 mg Tablet,Delayed Release (Dr/Ec) 81 mg PO BREAKFAST Qty: 0 0RF lisinopril 10 mg Tablet 10 mg PO DAILY Qty: 0 0RF calcium carbonate 200 mg calcium (500 mg) Tablet,Chewable 500 mg PO TIDCM PRN (Reason: Indigestion) Qty: 0 0RF sennosides-docusate sodium [Stimulant Laxative Plus] 8.6-50 mg Tablet 2 tab PO BID PRN PRN (Reason: Constipation) Qty: 0 0RF pantoprazole 40 mg Tablet,Delayed Release (Dr/Ec) 40 mg PO DAILY Qty: 0 0RF ezetimibe 10 mg Tablet 10 mg PO DAILY Qty: 0 0RF Continued cholecalciferol (vitamin D3) 50 mcg (2,000 unit) capsule 50 mcg PO DAILY cyanocobalamin (vitamin B-12) 2,500 mcg tablet 2,500 mcg PO DAILY sertraline 50 mg tablet 25 mg PO QPM Patient Comments: PT STARTED ON 07/05/24, INCREASE TO 1 TAB ON 07/12/24 TOLERATED. Discontinued amlodipine 5 mg tablet 5 mg PO QPM benazepril 10 mg tablet 10 mg PO QPM ezetimibe 10 mg tablet 10 mg PO QPM aspirin 81 mg Tablet,Chewable 81 mg PO QPM No Action meclizine 25 mg tablet 25 mg PO Q8H PRN (Reason: DIZZINESS ) Patient Comments: PT STATES THEY TAKE ONE TABLET BY MOUTH EVERY NIGHT Referrals / Follow Up: Aneta Alcantara DO [Primary Care Provider] - As Needed Disposition Disposition (needs filled in before D/C Order can be placed): NonSkilled NH/Intermed Care
--- NOTE | 2024-07-16 13:14 | PCM.DC.SUM ---
Providers Date of Admission: 07/12/24 Date of Discharge: 07/16/24 Primary Care Physician: Dr. Aneta Alcantara, DO Reason For Visit: FALL, L HIP PAIN, DEBILITY/ADULT FTT Diagnosis Discharge Diagnosis (1) Contusion of hip, left: Status: Acute Code(s): S70.02XA - Contusion of left hip, initial encounter Plan 1. Acute debility secondary to left hip contusion on a backdrop of underlying dementia and advanced age-PT and OT will continue to see the patient, the plan is for the patient to go to a nursing facility and this will need to be a private pay agreement with the family, case management has told me that the family is trying to obtain the funds for the patient to go to [facility]. #2 essential hypertension-patient will remain on her present medications #3 hyperlipidemia-patient is on Zetia #4 dementia-complicates care, management, recovery, and prognosis Total clinical time spent by myself addressing patient's medical issues, reviewing all of her data, and collaborating with the patient's care team: 35 minutes Medications at Discharge Home Medications cholecalciferol (vitamin D3) 50 mcg (2,000 unit) capsule 50 mcg PO DAILY SUPPLEMENT 06/29/22 cyanocobalamin (vitamin B-12) 2,500 mcg tablet 2,500 mcg PO DAILY SUPPLEMENT 06/29/22 meclizine 25 mg tablet 25 mg PO Q8H PRN DIZZINESS 06/29/22 sertraline 50 mg tablet 25 mg PO QPM 07/10/24 acetaminophen 325 mg tablet 650 mg (2 x 325 mg) PO Q4H PRN PRN Fever, pain 1-01/02 #0 tabs 07/16/24 amlodipine 5 mg tablet 5 mg PO DAILY #0 tabs 07/16/24 aspirin 81 mg tablet,delayed release 81 mg PO BREAKFAST #0 tabs 07/16/24 calcium carbonate 500 mg (2.5 x 200 mg calcium (500 mg)) PO TIDCM PRN Indigestion #0 tabs 07/16/24 ezetimibe 10 mg tablet 10 mg PO DAILY #0 tabs 07/16/24 lisinopril 10 mg tablet 10 mg PO DAILY #0 tabs 07/16/24 pantoprazole 40 mg tablet,delayed release 40 mg PO DAILY #0 tabs 07/16/24 sennosides 8.6 mg-docusate sodium 50 mg tablet (Stimulant Laxative Plus) 2 tab PO BID PRN PRN Constipation #0 tabs 07/16/24 Hospital Course Operations None Procedures None Summary of Care Provided Minutes Spent on Discharge: 31 Hospital Course: This 83-year-old white female was seen in the emergency room at [facility] with complaints of left hip pain. Patient fell on the floor at home and was not able to get up from the floor on her own. Patient lives with her -patient also has dementia. X-rays of the left hip showed no fracture, patient was ambulated in the emergency room using the walker. Conversations were carried out with the patient's family, they felt the patient should go to an extended care facility due to her 's age and inability to care for her at home. Patient was admitted to [place] [address], she was seen by PT and OT, and her insurance would not pay for group home care so the patient's family had to pay [id number]. On 07/16/2024, patient was seen and examined:alert, no apparent distress and average body habitus Constitutional Narrative: Patient exhibits some moderate cognitive impairment General Appearance: cooperative, well kempt and well developed Orientation / Consciousness: awake, oriented to person and oriented to place HEENT normocephalic, head/scalp atraumatic and moist oral mucous membranes Eyes PERRL, EOMs intact bilaterally and conjunctivae normal Neck supple, no JVD, thyroid normal and no carotid bruits General: trachea midline Resp normal respiratory effort, no retractions, no use of accessory muscles and clear to auscultation bilaterally Auscultation: Negative for rales, rhonchi or wheezes Cardio regular rate, regular rhythm, S1 normal heart sound, S2 normal heart sound, no murmurs, no rub and no gallops GI normal to inspection, nondistended, normoactive bowel sounds, soft to palpation, non-tender and non-distended Extremity no clubbing, cyanosis or edema Skin no rashes or lesions noted General Skin Exam: no breakdown Neuro CN's II-XII intact bilaterally, no focal motor deficits and no sensory deficits noted Sensorium / Orientation: awake, alert, oriented to person and oriented to place Speech: speech normal Psych Psych Narrative: Patient has moderate cognitive impairment Patient was discharged to an extended care facility under intermediate care on 07/16/2024 in stable condition Weight / BMI Weight Weight: 62.324 kg Body Mass Index (BMI) 24.3 ABG / Lab / Microbiology Data 07/16/24 07:04 07/16/24 07:04 Laboratory: Laboratory Results - last 24 hr 07/16/24 07:04: WBC 7.3, RBC 4.16 L, Hgb 12.3, Hct 36.1 L, MCV 86.8, MCH 29.6, MCHC 34.1, RDW Std Deviation 36.2, RDW Coeff of Arlette 11.4 L, Plt Count 285, MPV 9.6, Immature Gran % (Auto) 0.400, Neut % (Auto) 56.5, Lymph % (Auto) 26.7, [place] % (Auto) 9.1, Eos % (Auto) 6.1 H, Baso % (Auto) 1.2 H, Absolute Neuts (auto) 4.1, Absolute Lymphs (auto) 1.96, Nucleated RBC % 0, Sodium 141, Potassium 3.6, Chloride 106, Carbon Dioxide 23.8, Anion Gap 11, BUN 16, Creatinine 1.37 H, Estim Creat Clear Calc 24.83 L, Est GFR (MDRD) Non-Af 38 L, BUN/Creatinine Ratio 11.5, Glucose 106 H, Calcium 9.5 D/C Instructions DC O2, CPAP, BIPAP Needs Home O2 Discharge instructions: No Meaningful Use Info Meaningful Use Meaningful Use Diagnoses (Choose all that apply): None applicable Ischemic Stroke Statin Dosing Therapy Reference: STATIN DOSE THERAPY REFERENCE: * Patients > 75 years receive moderate or high dose statin therapy. * Patients 75 years or YOUNGER should receive HIGH intensity statin dose unless contraindicated. You will be required to document reason for non-treatment if statin daily dose does not meet guidelines. HIGH DOSE STATIN THERAPY DAILY Atorvastatin > than or = to 40 mg Rosuvastatin > than or = to 20 mg Amlodipine + Atorvastatin > than or = to 2.5/40 mg Ezetimibe + Simvastatin 10/80 mg Simvastatin 80mg Discharge Plan Admission Admit Date/Time: 07/12/24 11:36 Primary Reason for Your Visit: contusion to left hip, debility Attending Provider: Chris Ruiz Primary Care Provider: Aneta Alcantara Consulting Providers: Rosalia Scales; Taryn Malik Instructions Patient Instructions: ED Contusion, Lower Extremity Additional Instructions / Restrictions: Ice to left hip area 4-6 times a day Tylenol for pain Discharge Orders/Prescriptions Prescriptions: New acetaminophen 325 mg Tablet 650 mg PO Q4H PRN PRN (Reason: Fever, pain -01/02) Qty: 0 0RF amlodipine 5 mg Tablet 5 mg PO DAILY Qty: 0 0RF aspirin 81 mg Tablet,Delayed Release (Dr/Ec) 81 mg PO BREAKFAST Qty: 0 0RF lisinopril 10 mg Tablet 10 mg PO DAILY Qty: 0 0RF calcium carbonate 200 mg calcium (500 mg) Tablet,Chewable 500 mg PO TIDCM PRN (Reason: Indigestion) Qty: 0 0RF sennosides-docusate sodium [Stimulant Laxative Plus] 8.6-50 mg Tablet 2 tab PO BID PRN PRN (Reason: Constipation) Qty: 0 0RF pantoprazole 40 mg Tablet,Delayed Release (Dr/Ec) 40 mg PO DAILY Qty: 0 0RF ezetimibe 10 mg Tablet 10 mg PO DAILY Qty: 0 0RF Continued cholecalciferol (vitamin D3) 50 mcg (2,000 unit) capsule 50 mcg PO DAILY cyanocobalamin (vitamin B-12) 2,500 mcg tablet 2,500 mcg PO DAILY sertraline 50 mg tablet 25 mg PO QPM Patient Comments: PT STARTED ON 07/05/24, INCREASE TO 1 TAB ON 07/12/24 TOLERATED. Discontinued amlodipine 5 mg tablet 5 mg PO QPM benazepril 10 mg tablet 10 mg PO QPM ezetimibe 10 mg tablet 10 mg PO QPM aspirin 81 mg Tablet,Chewable 81 mg PO QPM No Action meclizine 25 mg tablet 25 mg PO Q8H PRN (Reason: DIZZINESS ) Patient Comments: PT STATES THEY TAKE ONE TABLET BY MOUTH EVERY NIGHT Referrals / Follow Up: Aneta Alcantara DO [Primary Care Provider] - As Needed Disposition Disposition (needs filled in before D/C Order can be placed): NonSkilled NH/Intermed Care Charges/Coding Visit Charges Inpatient E&M: 01882 Disch Hosp >30min
--- NOTE | 2024-07-16 13:24 | PHA.DC_ITS ---
Pharmacy [place] Med Reconciliation Pharmacy Service has performed discharge medication reconciliation for this patient. The patient's discharge medication list was reviewed for discrepancies and discrepancies were resolved. Medications at Discharge Home Medications cholecalciferol (vitamin D3) 50 mcg (2,000 unit) capsule 50 mcg PO DAILY SUPPLEMENT 06/29/22 cyanocobalamin (vitamin B-12) 2,500 mcg tablet 2,500 mcg PO DAILY SUPPLEMENT 06/29/22 meclizine 25 mg tablet 25 mg PO Q8H PRN DIZZINESS 06/29/22 sertraline 50 mg tablet 25 mg PO QPM 07/10/24 acetaminophen 325 mg tablet 650 mg (2 x 325 mg) PO Q4H PRN PRN Fever, pain - 01/02 #0 tabs 07/16/24 amlodipine 5 mg tablet 5 mg PO DAILY #0 tabs 07/16/24 aspirin 81 mg tablet,delayed release 81 mg PO BREAKFAST #0 tabs 07/16/24 calcium carbonate 500 mg (2.5 x 200 mg calcium (500 mg)) PO TIDCM PRN Indigestion #0 tabs 07/16/24 ezetimibe 10 mg tablet 10 mg PO DAILY #0 tabs 07/16/24 lisinopril 10 mg tablet 10 mg PO DAILY #0 tabs 07/16/24 pantoprazole 40 mg tablet,delayed release 40 mg PO DAILY #0 tabs 07/16/24 sennosides 8.6 mg-docusate sodium 50 mg tablet (Stimulant Laxative Plus) 2 tab PO BID PRN PRN Constipation #0 tabs 07/16/24
--- NOTE | 2024-07-16 13:32 | CASEMGMT ---
Discharge Planning Discharge orders, signed med list, and transport time sent to [facility]. Physicians will transport pt by wheelchair at 1:30p. Nursing and SW updated. left for pts niece (Vianney). Bina Romero DC Planning Asst.
--- NOTE | 2024-07-16 13:39 | CASEMGMT ---
Social Work Physician updated and pt is ready for discharge today.? PASRR form completed in HENS. [facility] arranged with [facility] for 1:30PM pickup via wheelchair van.? SW met with pt and they are agreeable to discharge plan as stated above.? Physician and bedside nurse notified of discharge time. SW called pt niece to advise of d/c; Vianney to meet pt at [facility] this afternoon. Disposition: [facility]; intermediate level of care under convalescent stay. CRISTY Rosenthal
== END 2024-07-16 13:40 | disposition intermediate care facility (04) | DRG 605 ==
LOC: ED 14:11 → MS3 14:15
PROVIDERS: Student in an Organized Health Care Education/Training Program; Admitting Provider Family Medicine; Emergency Provider Emergency Medicine; PCP Internal Medicine; Visit Provider Internal Medicine
DX: S70.02XA Contusion of left hip, initial encounter (principal); R62.7 Adult failure to thrive; F03.90 Unspecified dementia, unspecified severity, without behavioral disturbance, psychotic disturbance, mood disturbance, and anxiety; I10 Essential (primary) hypertension; E78.5 Hyperlipidemia, unspecified; W19.XXXA Unspecified fall, initial encounter; K21.9 Gastro-esophageal reflux disease without esophagitis; E87.6 Hypokalemia; M19.90 Unspecified osteoarthritis, unspecified site; H81.10 Benign paroxysmal vertigo, unspecified ear; E55.9 Vitamin D deficiency, unspecified; E53.8 Deficiency of other specified B group vitamins; R53.81 Other malaise; H81.09 Meniere's disease, unspecified ear; Y92.009 Unspecified place in unspecified non-institutional (private) residence as the place of occurrence of the external cause; R26.89 Other abnormalities of gait and mobility; Z68.24 Body mass index [BMI] 24.0-24.9, adult; Z79.82 Long term (current) use of aspirin; Z79.899 Other long term (current) drug therapy; Z96.642 Presence of left artificial hip joint
CPT/HCPCS: 36415; 73502; 80048; 80053; 85025; 94668; 97116; 97162; 97166; 97530; 97535; 97802; 99285; A4216

== ENCOUNTER → 2024-07-17 | Outpatient (REF) | payer MEDICARE, SELFPAY ==
[2024-07-17 08:15] LABS: Hematocrit 36.2 % (37-47); Hemoglobin 12.5 g/dL (12.0-15.0); Mean Corp Hgb Conc 34.5 g/dL (32-36); Mean Corpuscular Hgb 29.8 pg (27.0-32.0); Mean Corpuscular Volume 86.2 fL (81-99); Mean Platelet Vol. 9.8 fl (6.2-12.0); Platelet Count 307 K/mm3 (150-450); RBC Distribution Width CV 11.5 % (11.6-14.6); RBC Distribution Width SD 36.1 fl (35.1-43.9); White Blood Count 7.5 K/mm3 (4.4-11.0)
[2024-07-17 08:34] LABS: Hemoglobin A1c 5.6 % (<=5.6)
[2024-07-17 08:49] LABS: ALB/GLOB Ratio 1.4 RATIO (0.9-2.4); AST(SGOT) 33 U/L (<=31); Alanine Aminotransfer ALT/SGPT 30 U/L (<=34); Alkaline Phosphatase 61 U/L (35-104); Anion Gap 12 (5-15); BUN 16 mg/dL (4-19); BUN/Creat Ratio 11.6 RATIO (10-20); Calcium,Total 9.5 mg/dL (7.6-11.0); Chloride 107 mmol/L (98-108); Cholesterol 145 mg/dL (<=200); Creatinine, Serum 1.39 mg/dL (0.70-1.20); EST Glomerular Filtration Rate 37 (>60); Globulin 2.9 g/dL (2.2-4.2); Glucose 105 mg/dL (70-99); High Density Lipoprotein 29 mg/dL; Low Density Lipoprotein Calc. 81 mg/dL; Potassium 3.5 mmol/L (3.3-5.1); Protein, Total 6.9 g/dL (5.9-8.4); Sodium Level 142 mmol/L (133-145); T4 Total, Thyroxin 8.7 ug/dL (4.8-13.9); Total Bilirubin 0.29 mg/dL (0.00-1.30); Triglycerides 176 mg/dL; Very Low Density Lipoprotein 35 mg/dL (5-40); cholesterol:hdl ratio screen 5.05
== END ==
LOC: OLS.SW 05:00
PROVIDERS: PCP Internal Medicine; Visit Provider Internal Medicine
DX: Z02.0 Encounter for examination for admission to educational institution (principal)
CPT/HCPCS: 36415; 80053; 80061; 83036; 84436; 84443; 85027

== ENCOUNTER → 2025-01-20 05:00 | Outpatient (REF) | payer MEDICARE, SELFPAY ==
[2025-01-20 08:37] LABS: Hematocrit 35.9 % (37-47); Hemoglobin 12.1 g/dL (12.0-15.0); Mean Corp Hgb Conc 33.7 g/dL (32-36); Mean Corpuscular Volume 89.3 fL (81-99); Mean Platelet Vol. 9.9 fl (6.2-12.0); Platelet Count 274 K/mm3 (150-450); RBC Distribution Width CV 12.0 % (11.6-14.6); RBC Distribution Width SD 39.5 fl (35.1-43.9); Red Blood Count 4.02 M/mm3 (4.2-5.4); White Blood Count 7.7 K/mm3 (4.4-11.0)
[2025-01-20 09:32] LABS: Anion Gap 8 (5-15); BUN 22 mg/dL (4-19); BUN/Creat Ratio 20.1 RATIO (10-20); Calcium,Total 9.6 mg/dL (7.6-11.0); Carbon Dioxide 28.2 mmol/L (21.0-32.0); Chloride 106 mmol/L (98-108); Cholesterol 136 mg/dL (<=200); Glucose 99 mg/dL (70-99); Low Density Lipoprotein Calc. 77 mg/dL; Potassium 4.4 mmol/L (3.3-5.1); Triglycerides 145 mg/dL; Very Low Density Lipoprotein 29 mg/dL (5-40); Vitamin B12 1254 pg/mL (180-914); cholesterol:hdl ratio screen 4.12
[2025-01-20 09:44] LABS: Iron 65 ug/dL (50-170)
== END ==
LOC: OLS.SW 05:00
PROVIDERS: PCP Internal Medicine; Visit Provider Family Medicine
DX: M19.90 Unspecified osteoarthritis, unspecified site (principal); R62.7 Adult failure to thrive; F03.918 Unspecified dementia, unspecified severity, with other behavioral disturbance
CPT/HCPCS: 36415; 80048; 80061; 82607; 83540; 84443; 85027